=== PATIENT | female | born 1935 | race Caucasian/White ===

== ENCOUNTER 2017-11-03 12:43 | Inpatient (IN) | payer MEDICARE, BC ==
[2017-11-03] MEDS ORDERED: Insulin Regular, Human 100 Units/ML 10 ML Vial IVPUSH ONE ×2 (13:50→14:45)
--- NOTE | 2017-11-03 13:54 | EDM.PDOC ---
ED HPI GENERAL MEDICAL PROBLEM - General Chief Complaint: Diabetic Complaint Stated Complaint: MEDICAL VIA AMBULANCE Time Seen by Provider: 11/03/17 13:35 Source of Information: Reports: Patient, EMS, Family History Limitations: Reports: No Limitations - History of Present Illness INITIAL COMMENTS - FREE TEXT/NARRATIVE: 82-year-old female with insulin-dependent diabetes, on insulin pump developed loose stools yesterday, weakness, nausea, decreased appetite. No fever or chills , denies shortness of breath. This morning she was so weak and ill that she did not fill her pump reservoir and likely has not had any insulin other than baseline insulin. She had emesis at home and felt too weak to walk so the ambulance was called. She seems mildly confused but not feverish, oxygen levels are normal. Glucometer per EMS was 499. She is not hyperventilating or complaining of headache or muscle pain. No peripheral edema. Her chief complaint is profound weakness and nausea. Onset: Gradual (Over the past 2 days) Severity: Moderate Worsens with: Reports: Other (Activity) Associated Symptoms: Reports: Confusion, Loss of Appetite, Malaise, Nausea/ Vomiting, Weakness Denies Pain Score (Numeric/FACES): 0 - Related Data Allergies Allergy/AdvReac Type Severity Reaction Status Date / Time Penicillins Allergy Rash Verified 11/03/17 13:21 Sulfa (Sulfonamide Allergy Joint Pain Verified 11/03/17 13:21 Antibiotics) erythromycin base AdvReac Nausea Verified 11/03/17 13:21 [Erythromycin Base] Home Meds: Home Meds Aspirin [Kate Chewable Aspirin] 81 mg PO DAILY 10/26/13 [History] Calcium Carb & Citrate/Vit D3 [Calcium + D3 ER Tablet] 1 each PO DAILY 10/26/13 [History] Insulin Aspart [NovoLOG] ASDIRECTED 10/26/13 [History] Levothyroxine Sodium 1 tab PO DAILY 10/26/13 [History] Losartan [Cozaar] 1 tab PO BID 10/26/13 [History] levETIRAcetam [Keppra] 500 mg PO BID 10/26/13 [History] Clopidogrel [Plavix] 75 mg PO DAILY #30 tablet 10/30/13 [Rx] Metoprolol Tartrate 25 mg PO BID #60 tablet 10/30/13 [Rx] atorvaSTATin [Lipitor] 10 mg PO BEDTIME #90 tab 10/30/13 [Rx] Past Medical History HEENT History: Reports: Impaired Vision Cardiovascular History: Reports: High Cholesterol 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: Musculoskeletal History: Reports: Arthritis, Fracture Other Musculoskeletal History: finger Neurological History: Reports: Seizure Psychiatric History: Reports: Depression Endocrine/Metabolic History: Reports: Diabetes, Type I, Hypothyroidism - Infectious Disease History Infectious Disease History: Reports: Chicken Pox, Shingles - Past Surgical History GI Surgical History: Reports: Appendectomy, Cholecystectomy, Colonoscopy Female Surgical History: Reports: Tubal Ligation Social & Family History - Tobacco Use Smoking Status *Q: Never Smoker Second Hand Smoke Exposure: No - Caffeine Use Caffeine Use: Reports: Coffee, Tea - Alcohol Use Days Per Week of Alcohol Use: 2 Number of Drinks Per Day: 2 Total Drinks Per Week: 4 - Recreational Drug Use Recreational Drug Use: No ED ROS GENERAL - Review of Systems Review Of Systems: See Below Constitutional: Reports: Malaise, Weakness, Decreased Appetite. Denies: Fever, Chills HEENT: Reports: No Symptoms Respiratory: Denies: Shortness of Breath, Cough Cardiovascular: Denies: Chest Pain GI/Abdominal: Reports: Diarrhea, Nausea, Vomiting. Denies: Abdominal Pain : Reports: No Symptoms Skin: Reports: No Symptoms Neurological: Reports: Confusion, Weakness Psychiatric: Reports: No Symptoms ED EXAM, GENERAL - Physical Exam Exam: See Below Exam Limited By: No Limitations General Appearance: Alert, No Apparent Distress, Other (No distress. Looks very tired) Eye Exam: Bilateral Eye: EOMI Head: Atraumatic Respiratory/Chest: No Respiratory Distress, Lungs Clear Cardiovascular: Regular Rate, Rhythm. No: Tachycardia GI/Abdominal: Normal Bowel Sounds, Soft, Non-Tender Extremities: No: Pedal Edema Neurological: Alert, Oriented Psychiatric: Flat Affect Skin Exam: Warm, Dry Course - Vital Signs Last Recorded V/S: Last Vital Signs Temp 98.8 F 11/04/17 04:00 Pulse 84 11/04/17 06:00 Resp 21 H 11/04/17 06:00 BP 116/47 L 11/04/17 06:00 Pulse Ox 93 L 11/04/17 06:00 - Orders/Labs/Meds Orders: Medication Orders Acetaminophen (Tylenol) 650 mg PO Q4H PRN PRN Reason: Pain (Mild 1-3)/fever Albuterol (Proventil Neb Soln) 2.5 mg NEB Q4H PRN PRN Reason: Shortness Of Breath/wheezing Aspirin (Aspirin) 81 mg PO DAILY HAN Atorvastatin Calcium (Lipitor) 10 mg PO BEDTIME HAN Last Admin: 11/03/17 21:10 Dose: 10 mg Clopidogrel Bisulfate (Plavix) 75 mg PO DAILY HAN Dextrose/Water (Dextrose 50% In Water) 50 ml IVPUSH ONETIME PRN PRN Reason: Blood Glucose Enoxaparin Sodium (Lovenox) 40 mg SUBCUT Q24H HAN Last Admin: 11/03/17 19:59 Dose: 40 mg Insulin Human Regular 100 unit (/ Sodium Chloride) 101 mls @ 5.03 mls/hr IV TITRATE HAN; Protocol Last Titration: 11/04/17 04:04 Dose: 0.03 unit/kg/hr, 2 mls/hr Titration: 11/04/17 02:11 Dose: 0 unit/kg/hr, 0 mls/hr Titration: 11/03/17 22:29 Dose: 0.05 unit/kg/hr, 3 mls/hr Titration: 11/03/17 21:20 Dose: 0.09 unit/kg/hr, 5 mls/hr Titration: 11/03/17 18:00 Dose: 0.14 unit/kg/hr, 7.5 mls/hr Admin: 11/03/17 17:25 Dose: 0.1 unit/kg/hr, 5.03 mls/hr Magnesium Sulfate 2 gm/ Premix 50 mls @ 25 mls/hr IV ONETIME PRN PRN Reason: low magnesium Last Admin: 11/03/17 18:13 Dose: 25 mls/hr Potassium Chloride 20 meq/ (Premix) 100 mls @ 50 mls/hr IV ONETIME PRN PRN Reason: LOW POTASSIUM Last Admin: 11/03/17 22:00 Dose: 50 mls/hr Potassium Chloride 20 meq/ (Premix) 100 mls @ 50 mls/hr IV Q2H PRN PRN Reason: Hypokalemia Potassium Chloride 20 meq/ (Premix) 100 mls @ 50 mls/hr IV Q2H PRN PRN Reason: Hypokalemia Sodium Chloride (Normal Saline) 2,000 mls @ 500 mls/hr IV .CONTINUOUS PRN PRN Reason: Blood Glucose Last Admin: 11/03/17 19:48 Dose: 500 mls/hr Infusion: 11/03/17 19:48 Dose: 500 mls/hr Admin: 11/03/17 17:24 Dose: 500 mls/hr Dextrose/Sodium Chloride (Dextrose 5%-Normal Saline) 1,000 mls @ 150 mls/hr IV ASDIRECTED [facility] Last Admin: 11/04/17 04:54 Dose: 150 mls/hr Infusion: 11/04/17 04:54 Dose: 150 mls/hr Admin: 11/03/17 22:45 Dose: 150 mls/hr Ceftriaxone Sodium 1 gm/ (Sodium Chloride) 50 mls @ 100 mls/hr IV Q24H [facility] Levetiracetam (Keppra) 500 mg PO BID [facility] Last Admin: 11/03/17 21:11 Dose: 500 mg Levothyroxine Sodium (Levothyroxine) 75 mcg PO ACBREAKFAST [facility] Losartan Potassium (Cozaar) 50 mg PO BID [facility] Last Admin: 11/03/17 21:11 Dose: 50 mg Metoprolol Tartrate (Lopressor) 25 mg PO BID [facility] Last Admin: 11/03/17 21:11 Dose: 25 mg Ondansetron HCl (Zofran) 4 mg IV Q4H PRN PRN Reason: Nausea/Vomiting Oxycodone HCl (Oxycodone) 5 mg PO Q4H PRN PRN Reason: Pain (moderate 4-6) Sodium Chloride (Saline Flush) 10 ml FLUSH ASDIRECTED PRN PRN Reason: Keep Vein Open Labs: Laboratory Tests 11/03/17 11/03/17 11/03/17 Range/Units 13:49 13:49 13:50 WBC 18.1 H (4.5-11.0) K/uL RBC 4.29 (3.30-5.50) M/uL Hgb 14.3 (12.0-15.0) g/dL Hct 42.9 (36.0-48.0) % MCV 100 H (80-98) fL MCH 33 H (27-31) pg MCHC 33 (32-36) % Plt Count 399 (150-400) K/uL Neut % (Auto) 97 H (36-66) % Lymph % (Auto) 2 L (24-44) % Mcminn % (Auto) 1 L (2-6) % Eos % (Auto) 0 L (2-4) % Baso % (Auto) 0 (0-1) % Puncture Site Rt radial ABG pH 7.171 L* (7.350-7.450) ABG pCO2 19.5 L* (35.0-42.0) mmHg ABG pO2 118.0 H (75.0-100.0) mmHg ABG HCO3 6.8 L (22.0-26.0) mmol/L ABG Total CO2 6.4 L (21.0-25.0) mmol/L ABG O2 Saturation 97.4 (95.0-98.0) % ABG O2 Content 19.8 (15.0-23.0) %vol ABG Base Excess -20.7 mm/L ABG Hemoglobin 14.7 (12.0-16.0) g/dL ABG Oxyhemoglobin 95.4 % ABG Carboxyhemoglobin 1.5 (0.0-1.6) % ABG Methemoglobin 0.6 % Omar Test Passed O2 Delivery Device Room air Sodium 129 L (140-148) mmol/L Potassium 4.8 (3.6-5.2) mmol/L Chloride 92 L (100-108) mmol/L Carbon Dioxide 7 L D (21-32) mmol/L Anion Gap 34.8 H (5.0-14.0) mmol/L BUN 21 H D (7-18) mg/dL Creatinine 1.2 H D (0.6-1.0) mg/dL Est Cr Clr Drug Dosing 29.45 mL/min Estimated GFR (MDRD) 43 L (>60) Glucose 590 H* (74-106) mg/dL Calcium 9.4 (8.5-10.1) mg/dL Total Bilirubin 1.1 H (0.2-1.0) mg/dL AST 42 H (15-37) U/L ALT 44 (12-78) U/L Alkaline Phosphatase 122 H (46-116) U/L Total Protein 7.0 (6.4-8.2) g/dL Albumin 3.8 (3.4-5.0) g/dL Globulin 3.2 (2.3-3.5) g/dL Albumin/Globulin Ratio 1.2 (1.2-2.2) Lipase 52 L (73-393) U/L Meds: Medications Generic Name Dose Route Start Last Admin Trade Name Freq PRN Reason Stop Dose Admin Acetaminophen 650 mg 11/03/17 16:41 Tylenol PO Q4H PRN Pain (Mild 1-3)/fever Albuterol 2.5 mg 11/03/17 16:41 Proventil Neb Soln NEB Q4H PRN Shortness Of Breath/wheezing Aspirin 81 mg 11/04/17 09:00 Aspirin PO DAILY HAN Atorvastatin Calcium 10 mg 11/03/17 21:00 11/03/17 21:10 Lipitor PO 10 mg BEDTIME HAN Administration Clopidogrel Bisulfate 75 mg 11/04/17 09:00 Plavix PO DAILY HAN Dextrose/Water 50 ml 11/03/17 16:41 Dextrose 50% In Water IVPUSH ONETIME PRN Blood Glucose Enoxaparin Sodium 40 mg 11/03/17 20:00 11/03/17 19:59 Lovenox SUBCUT 40 mg Q24H HAN Administration Insulin Human Regular 100 unit 101 mls @ 5.03 mls/hr 11/03/17 17:15 11/04/17 04:04 / Sodium Chloride IV 0.03 unit/kg/hr TITRATE HAN 2 mls/hr Titration Protocol 0.1 UNIT/KG/HR Magnesium Sulfate 2 gm/ Premix 50 mls @ 25 mls/hr 11/03/17 16:41 11/03/17 18: 13 IV 25 mls/hr ONETIME PRN Administration low magnesium Potassium Chloride 20 meq/ 100 mls @ 50 mls/hr 11/03/17 16:41 11/03/17 22:00 Premix IV 50 mls/hr ONETIME PRN Administration LOW POTASSIUM Potassium Chloride 20 meq/ 100 mls @ 50 mls/hr 11/03/17 16:41 Premix IV Q2H PRN Hypokalemia Potassium Chloride 20 meq/ 100 mls @ 50 mls/hr 11/03/17 16:41 Premix IV Q2H PRN Hypokalemia Sodium Chloride 2,000 mls @ 500 mls/hr 11/03/17 16:41 11/03/17 19:48 Normal Saline IV 500 mls/hr .CONTINUOUS PRN Administration Blood Glucose Dextrose/Sodium Chloride 1,000 mls @ 150 mls/hr 11/03/17 22:30 06/28/18 04:54 Dextrose 5%-Normal Saline IV 150 mls/hr ASDIRECTED HAN Administration Ceftriaxone Sodium 1 gm/ 50 mls @ 100 mls/hr 11/04/17 09:00 Sodium Chloride IV Q24H HAN Levetiracetam 500 mg 11/03/17 21:00 11/03/17 21:11 Keppra PO 500 mg BID HAN Administration Levothyroxine Sodium 75 mcg 11/04/17 07:30 Levothyroxine PO ACBREAKFAST HAN Losartan Potassium 50 mg 11/03/17 21:00 11/03/17 21:11 Cozaar PO 50 mg BID HAN Administration Metoprolol Tartrate 25 mg 11/03/17 21:00 11/03/17 21:11 Lopressor PO 25 mg BID HAN Administration Ondansetron HCl 4 mg 11/03/17 16:41 Zofran IV Q4H PRN Nausea/Vomiting Oxycodone HCl 5 mg 11/03/17 16:41 Oxycodone PO Q4H PRN Pain (moderate 4-6) Sodium Chloride 10 ml 11/03/17 16:41 Saline Flush FLUSH ASDIRECTED PRN Keep Vein Open Discontinued Medications Generic Name Dose Route Start Last Admin Trade Name Freq PRN Reason Stop Dose Admin Sodium Chloride 1,000 mls @ 1,000 mls/hr 11/03/17 14:45 11/03/17 14:51 Normal Saline IV 1,000 mls/hr ASDIRECTED HAN Administration Sodium Phosphate 60 mmole/ 270 mls @ 62.5 mls/hr 11/03/17 16:41 Sodium Chloride IV 11/03/17 22:00 ONETIME PRN Low phophorus Potassium Chloride Confirm 11/03/17 21:53 11/03/17 22:00 Kcl 20 Meq In Water 100 Ml Administered 11/03/17 21:54 Not Given Dose 100 mls @ as directed .ROUTE .STK-MED ONE Insulin Human Regular 10 unit 11/03/17 13:50 11/03/17 14:01 Novolin R IVPUSH 11/03/17 13:51 10 units ONETIME ONE Administration Protocol Insulin Human Regular 10 unit 11/03/17 14:45 11/03/17 14:52 Novolin R IVPUSH 11/03/17 14:46 10 units ONETIME ONE Administration Protocol Insulin Human Regular 0 unit 11/03/17 16:41 11/03/17 17:58 Novolin R IV 11/03/17 16:42 Not Given ONETIME ONE Lidocaine HCl 5 ml 11/03/17 21:28 11/03/17 22:00 Xylocaine-Mpf 1% INJECT 11/03/17 21:29 5 ml ONETIME ONE Administration - Re-Assessments/Exams Free Text/Narrative Re-Assessment/Exam: 11/03/17 13:53 Patient was given 10 units of short-acting insulin IV. CBC, CMP, lipase, and ABGs on room air were obtained. 11/04/17 08:13 ABGs confirmed ketoacidosis with a pH of 7.17, bicarbonate of 7 and a low CO2. Glucose was over 500. Patient was given an additional 10 units of short-acting insulin and 1 L of normal saline was initiated. Dr. Siddiqi was consulted for admission for diabetic ketoacidosis and gastroenteritis. Departure - Departure Time of Disposition: 16:39 Disposition: Admitted As Inpatient 68 Condition: Fair Clinical Impression: Hyperglycemia, Gastroenteritis Diabetic ketoacidosis Qualifiers: Diabetes mellitus type: type 1 Diabetes mellitus complication detail: without coma Qualified Code(s): E10.10 - Type 1 diabetes mellitus with ketoacidosis without coma - Discharge Information
[2017-11-03] MEDS ORDERED: Sodium Chloride 0.9% 1,000 ML IV SCH (14:45)
--- NOTE | 2017-11-03 15:54 | PCM.HP ---
H&P History of Present Illness - General Date of Service: 11/03/17 Admit Problem/Dx: Admission Diagnosis/Problem Admission Diagnosis/Problem Ketoacidosis Source of Information: Patient, Family, Old Records, Provider, RN Notes Reviewed History Limitations: Reports: No Limitations - History of Present Illness Initial Comments - Free Text/Narative: Ms. Jamil is an 82-year-old woman who is admitted through the emergency department with recent history of weakness, nausea vomiting, diarrhea, and diabetic ketoacidosis. She reports that she's not felt well over the past few weeks, becoming more weak and lethargic. Over the past 2-3 days his had a few loose stools and one episode of vomiting. She has a known history of type 1 diabetes mellitus and currently uses an insulins pump, typically blood sugars have been under good control. Over the past few days blood sugars a been elevated and her oral intake has been very minimal. On evaluation in the emergency department she is found to have evidence of ketoacidosis with a significant decrease in her carbon dioxide level associated with a marked elevation in anion gap and significant acidosis with partial respiratory compensation. Denies Pain Score (Numeric/FACES): 0 - Related Data Allergies/Adverse Reactions: Allergies Allergy/AdvReac Type Severity Reaction Status Date / Time Penicillins Allergy Rash Verified 11/03/17 13:21 Sulfa (Sulfonamide Allergy Joint Pain Verified 11/03/17 13:21 Antibiotics) erythromycin base AdvReac Nausea Verified 11/03/17 13:21 [Erythromycin Base] Home Medications: Home Meds Aspirin [Kate Chewable Aspirin] 81 mg PO DAILY 10/26/13 [History] Calcium Carb & Citrate/Vit D3 [Calcium + D3 ER Tablet] 1 each PO DAILY 10/26/13 [History] Insulin Aspart [NovoLOG] ASDIRECTED 10/26/13 [History] Levothyroxine Sodium 1 tab PO DAILY 10/26/13 [History] Losartan [Cozaar] 1 tab PO BID 10/26/13 [History] levETIRAcetam [Keppra] 500 mg PO BID 10/26/13 [History] Clopidogrel [Plavix] 75 mg PO DAILY #30 tablet 10/30/13 [Rx] Metoprolol Tartrate 25 mg PO BID #60 tablet 10/30/13 [Rx] atorvaSTATin [Lipitor] 10 mg PO BEDTIME #90 tab 10/30/13 [Rx] Past Medical History HEENT History: Reports: Impaired Vision Cardiovascular History: Reports: High Cholesterol 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: Musculoskeletal History: Reports: Arthritis, Fracture Other Musculoskeletal History: finger Neurological History: Reports: Seizure Psychiatric History: Reports: Depression Endocrine/Metabolic History: Reports: Diabetes, Type I, Hypothyroidism - Infectious Disease History Infectious Disease History: Reports: Chicken Pox, Shingles - Past Surgical History GI Surgical History: Reports: Appendectomy, Cholecystectomy, Colonoscopy Female Surgical History: Reports: Tubal Ligation Social & Family History - Tobacco Use Smoking Status *Q: Never Smoker Second Hand Smoke Exposure: No - Caffeine Use Caffeine Use: Reports: Coffee, Tea - Alcohol Use Days Per Week of Alcohol Use: 2 Number of Drinks Per Day: 2 Total Drinks Per Week: 4 - Recreational Drug Use Recreational Drug Use: No H&P Review of Systems - Review of Systems: Review Of Systems: See Below General: Reports: Decreased Appetite. Denies: Fever, Chills, Diaphoresis HEENT: Reports: No Symptoms Pulmonary: Reports: No Symptoms Cardiovascular: Reports: No Symptoms Gastrointestinal: Reports: Diarrhea, Decreased Appetite, Nausea, Vomiting. Denies: Black Stool, Bloody Stool, Constipation, Difficulty Swallowing, Distension Genitourinary: Reports: No Symptoms Musculoskeletal: Reports: No Symptoms Skin: Reports: No Symptoms Psychiatric: Reports: No Symptoms Neurological: Reports: No Symptoms Hematologic/Lymphatic: Reports: No Symptoms Immunologic: Reports: No Symptoms Exam - Exam Exam: See Below - Vital Signs Vital Signs: Last Vital Signs Temp 97.9 F 11/03/17 12:58 Pulse 98 11/03/17 12:58 Resp 16 11/03/17 12:58 BP 130/42 L 11/03/17 12:58 Pulse Ox 95 11/03/17 12:58 Weight: 110 lb - Exam Quality Assessment: DVT Prophylaxis General: Alert, Oriented, Cooperative, Moderate Distress HEENT: Conjunctiva Clear, Hearing Intact, Normal Nasal Septum, Posterior Pharynx Clear, Pupils Equal. No: Mucosa Moist & Rawson Neck: Supple, Trachea Midline, +2 Carotid Pulse wo Bruit Lungs: Clear to Auscultation, Normal Respiratory Effort Cardiovascular: Regular Rate, Regular Rhythm, Normal S1, Normal S2. No: Systolic Murmur, Diastolic Murmur GI/Abdominal Exam: Soft, Non-Tender, No Organomegaly, No Distention Back Exam: Normal Inspection, Full Range of Motion Extremities: Non-Tender, No Pedal Edema Skin: Warm, Dry, Intact Neurological: Cranial Nerves Intact, Strength Equal Bilateral, Normal Speech, Normal Tone, Sensation Intact. No: Focal Deficit Neuro Extensive - Mental Status: Alert, Oriented x3, Normal Mood/Affect, Normal Cognition, Memory Intact - Patient Data Lab Results Last 24 hrs: Laboratory Results - last 24 hr 11/03/17 11/03/17 11/03/17 Range/Units 13:49 13:49 13:50 WBC 18.1 H (4.5-11.0) K/uL RBC 4.29 (3.30-5.50) M/uL Hgb 14.3 (12.0-15.0) g/dL Hct 42.9 (36.0-48.0) % MCV 100 H (80-98) fL MCH 33 H (27-31) pg MCHC 33 (32-36) % Plt Count 399 (150-400) K/uL Neut % (Auto) 97 H (36-66) % Lymph % (Auto) 2 L (24-44) % Edmonson % (Auto) 1 L (2-6) % Eos % (Auto) 0 L (2-4) % Baso % (Auto) 0 (0-1) % Puncture Site Rt radial ABG pH 7.171 L* (7.350-7.450) ABG pCO2 19.5 L* (35.0-42.0) mmHg ABG pO2 118.0 H (75.0-100.0) mmHg ABG HCO3 6.8 L (22.0-26.0) mmol/L ABG Total CO2 6.4 L (21.0-25.0) mmol/L ABG O2 Saturation 97.4 (95.0-98.0) % ABG O2 Content 19.8 (15.0-23.0) %vol ABG Base Excess -20.7 mm/L ABG Hemoglobin 14.7 (12.0-16.0) g/dL ABG Oxyhemoglobin 95.4 % ABG Carboxyhemoglobin 1.5 (0.0-1.6) % ABG Methemoglobin 0.6 % Omar Test Passed O2 Delivery Device Room air Sodium 129 L (140-148) mmol/L Potassium 4.8 (3.6-5.2) mmol/L Chloride 92 L (100-108) mmol/L Carbon Dioxide 7 L D (21-32) mmol/L Anion Gap 34.8 H (5.0-14.0) mmol/L BUN 21 H D (7-18) mg/dL Creatinine 1.2 H D (0.6-1.0) mg/dL Est Cr Clr Drug Dosing 29.45 mL/min Estimated GFR (MDRD) 43 L (>60) Glucose 590 H* (74-106) mg/dL Calcium 9.4 (8.5-10.1) mg/dL Total Bilirubin 1.1 H (0.2-1.0) mg/dL AST 42 H (15-37) U/L ALT 44 (12-78) U/L Alkaline Phosphatase 122 H (46-116) U/L Total Protein 7.0 (6.4-8.2) g/dL Albumin 3.8 (3.4-5.0) g/dL Globulin 3.2 (2.3-3.5) g/dL Albumin/Globulin Ratio 1.2 (1.2-2.2) Lipase 52 L (73-393) U/L Result Diagrams: 11/03/17 13:49 11/03/17 13:49 *Q Meaningful Use (ADM) - VTE Risk Assess *Q Each Risk Factor Represents 1 Point: None Total Score 1 Point Risk Factors: 0 Each Risk Factor Represents 2 Points: None Total Score 2 Point Risk Factors: 0 Each Risk Factor Represents 3 Points: Age 75 Years or Greater Total Score 3 Point Risk Factors: 3 Each Risk Factor Represents 5 Points: None Total Score 5 Point Risk Factors: 0 Venous Thromboembolism Risk Factor Score *Q: 3 Problem List Initiated/Reviewed/Updated: Yes Orders Last 24hrs: Active Orders 24 hr Category Date Time Status Patient Status Manage Transfer [TRANSFER] Routine ADT 11/03/17 15:35 Active Sodium Chloride 0.9% [Normal Saline] 1,000 ml Med 11/03/17 14:45 Active IV ASDIRECTED Resuscitation Status Routine Resus Stat 11/03/17 15:37 Ordered Medication Orders Sodium Chloride (Normal Saline) 1,000 mls @ 1,000 mls/hr IV ASDIRECTED HAN Last Admin: 11/03/17 14:51 Dose: 1,000 mls/hr Assessment/Plan Comment:: ASSESSMENT AND PLAN DIABETIC KETOACIDOSIS-likely secondary to gastroenteritis with poor oral intake over the past few days. She has a known history of type 1 diabetes mellitus and is typically managed well with her insulin pump. -Fluid and electrolyte replacement per ketoacidosis protocol -Every hour glucose levels -IV insulin bolus and continuous infusion -Monitor electrolytes and BMP per protocol -Chest x-ray and urinalysis pending -Consider CT scan of abdomen if no other source of ketoacidosis identified HYPERTENSION -Continue outpatient medical regimen SEIZURE DISORDER -Continue outpatient regimen MAINTENANCE ISSUES -DVT prophylaxis; Lovenox 40 mg subcutaneous daily -GI prophylaxis; not indicated -Mckeon catheter; not indicated -Nutrition; consistent carb diet -Nicotine dependence; not required CODE STATUS-FULL CODE ADMISSION STATUS-patient will be admitted to inpatient status, expect at least a 2 night hospital stay for evaluation and management of problems as outlined above. At the time of this admission I do not reasonably expected evaluation and management of this problem will require more than a 96 hour hospital stay. DISPOSITION-anticipate discharge to home after the hospital stay. PRIMARY CARE PROVIDER-[facility] medicine group, [facility]
[2017-11-03] MEDS ORDERED: Albuterol 0.083% 2.5 MG/3 ML Neb Soln NEB PRN (16:41)
[2017-11-03] MEDS ORDERED: Sodium Phosphate 60 MMOLE in Sodium Chloride 0.9% 250 ML IV PRN (16:41)
[2017-11-03] MEDS ORDERED: Potassium Chloride 20 MEQ in Premix Bag 1 BAG IV PRN ×6 (16:41)
[2017-11-03] MEDS ORDERED: oxyCODONE 5 MG Tab PO PRN (16:41)
[2017-11-03] MEDS ORDERED: Insulin Regular, Human 100 Units/ML 10 ML Vial IV ONE (16:41)
[2017-11-03] MEDS ORDERED: Sodium Chloride 0.9% 10 ML Syringe FLUSH PRN (16:41)
[2017-11-03] MEDS ORDERED: Ondansetron 4 MG/2 ML SDV IV PRN (16:41)
[2017-11-03] MEDS ORDERED: Magnesium Sulfate/Water 2 GM in Premix Bag 1 BAG IV PRN (16:41)
[2017-11-03] MEDS ORDERED: Acetaminophen 325 MG Tab PO PRN (16:41)
[2017-11-03] MEDS ORDERED: 50% Dextrose in Water 50 ML Syringe IVPUSH PRN (16:41)
[2017-11-03] MEDS: Sodium Chloride 0.9% 2,000 ML IV PRN ×2 (17:24→19:48)
[2017-11-03] MEDS: Enoxaparin 40 MG/0.4 ML Syringe SUBCUT SCH (19:59)
[2017-11-03] MEDS: atorvaSTATin 10 MG Tab PO SCH (21:10)
[2017-11-03] MEDS: Losartan 50 MG Tab PO SCH (21:11)
[2017-11-03] MEDS: levETIRAcetam 250 MG Tab PO SCH (21:11)
[2017-11-03] MEDS: Metoprolol Tartrate 25 MG Tab PO SCH (21:11)
[2017-11-03] MEDS ORDERED: Potassium Chloride 100 ML ONE (21:53)
[2017-11-03] MEDS: Dextrose 5%-0.9% NaCl 1,000 ML IV SCH (22:45)
[2017-11-04] MEDS: Dextrose 5%-0.9% NaCl 1,000 ML IV SCH ×3 (04:54→18:18)
[2017-11-04] MEDS: levETIRAcetam 250 MG Tab PO SCH ×2 (08:20→21:06)
[2017-11-04] MEDS: Levothyroxine 75 MCG Tab PO SCH (08:20)
[2017-11-04] MEDS: Losartan 50 MG Tab PO SCH ×2 (08:20→21:06)
[2017-11-04] MEDS: Clopidogrel 75 MG Tab PO SCH (08:20)
[2017-11-04] MEDS: Metoprolol Tartrate 25 MG Tab PO SCH ×2 (08:20→21:06)
[2017-11-04] MEDS: Aspirin 81 MG Tab.Chew PO SCH (08:21)
--- NOTE | 2017-11-04 08:40 | CR ---
CHEST: Portable CLINICAL HISTORY:DKA COMPARISON:2013 FINDINGS: Heart size and pulmonary vascularity are normal. There are atherosclerotic changes in the aorta.. Lungs are free of infiltrates. There is hyperaeration.. IMPRESSION: No acute cardiac pulmonary process Hyperaeration
[2017-11-04] MEDS: cefTRIAXone 1 GM in Sodium Chloride 0.9% 50 ML IV SCH (09:23)
--- NOTE | 2017-11-04 09:51 | PCM.PN ---
- General Info Date of Service: 11/04/17 Subjective Update: Ms. Jamil has improved since admission, ketoacidosis much better but has not totally resolved. She is feeling improved and tolerating a consistent carbohydrate diet this morning. Denies any abdominal pain, nausea, vomiting, or diarrhea. Urinalysis showed evidence of UTI, urine cultures pending and she's been started on IV Rocephin. - Review of Systems General: Reports: Weakness. Denies: Fever, Chills Pulmonary: Reports: No Symptoms Cardiovascular: Reports: No Symptoms Gastrointestinal: Reports: No Symptoms - Patient Data Vitals - Most Recent: Last Vital Signs Temp 98.9 F 11/04/17 07:00 Pulse 88 11/04/17 08:20 Resp 19 11/04/17 07:00 BP 127/51 L 11/04/17 08:20 Pulse Ox 95 11/04/17 07:00 Weight - Most Recent: 117 lb 1.047 oz I&O - Last 24 Hours: Intake & Output 11/03/17 11/04/17 11/04/17 22:59 06:59 14:59 Intake Total 3969 Output Total 500 250 Balance -500 3719 Lab Results Last 24 Hours: Laboratory Results - last 24 hr 11/03/17 11/03/17 11/03/17 Range/Units 13:49 13:49 13:50 WBC 18.1 H (4.5-11.0) K/uL RBC 4.29 (3.30-5.50) M/uL Hgb 14.3 (12.0-15.0) g/dL Hct 42.9 (36.0-48.0) % MCV 100 H (80-98) fL MCH 33 H (27-31) pg MCHC 33 (32-36) % Plt Count 399 (150-400) K/uL Neut % (Auto) 97 H (36-66) % Lymph % (Auto) 2 L (24-44) % [place] % (Auto) 1 L (2-6) % Eos % (Auto) 0 L (2-4) % Baso % (Auto) 0 (0-1) % Puncture Site Rt radial ABG pH 7.171 L* (7.350-7.450) ABG pCO2 19.5 L* (35.0-42.0) mmHg ABG pO2 118.0 H (75.0-100.0) mmHg ABG HCO3 6.8 L (22.0-26.0) mmol/L ABG Total CO2 6.4 L (21.0-25.0) mmol/L ABG O2 Saturation 97.4 (95.0-98.0) % ABG O2 Content 19.8 (15.0-23.0) %vol ABG Base Excess -20.7 mm/L ABG Hemoglobin 14.7 (12.0-16.0) g/dL ABG Oxyhemoglobin 95.4 % ABG Carboxyhemoglobin 1.5 (0.0-1.6) % ABG Methemoglobin 0.6 % Omar Test Passed O2 Delivery Device Room air Sodium 129 L (140-148) mmol/L Potassium 4.8 (3.6-5.2) mmol/L Chloride 92 L (100-108) mmol/L Carbon Dioxide 7 L D (21-32) mmol/L Anion Gap 34.8 H (5.0-14.0) mmol/L BUN 21 H D (7-18) mg/dL Creatinine 1.2 H D (0.6-1.0) mg/dL Est Cr Clr Drug Dosing 29.45 mL/min Estimated GFR (MDRD) 43 L (>60) Glucose 590 H* (74-106) mg/dL Calcium 9.4 (8.5-10.1) mg/dL Phosphorus (2.5-4.9) mg/dL Magnesium (1.8-2.4) mg/dL Total Bilirubin 1.1 H (0.2-1.0) mg/dL AST 42 H (15-37) U/L ALT 44 (12-78) U/L Alkaline Phosphatase 122 H (46-116) U/L Total Protein 7.0 (6.4-8.2) g/dL Albumin 3.8 (3.4-5.0) g/dL Globulin 3.2 (2.3-3.5) g/dL Albumin/Globulin Ratio 1.2 (1.2-2.2) Lipase 52 L (73-393) U/L TSH, Ultra Sensitive (0.358-3.740) uIU/mL Urine Color Urine Appearance Urine pH (4.5-8.0) Ur Specific [place] (1.008-1.030) Urine Protein (NEGATIVE) mg/dL Urine Glucose (UA) (NEGATIVE) mg/dL Urine Ketones (NEGATIVE) mg/dL Urine Occult Blood (NEGATIVE) Urine Nitrite (NEGATIVE) Urine Bilirubin (NEGATIVE) Urine Urobilinogen (NORMAL) mg/dL Ur Leukocyte Esterase (NEGATIVE) Urine RBC (0-5) Urine WBC (0-5) Ur Epithelial Cells Amorphous Sediment Urine Bacteria Urine Mucus 11/03/17 11/03/17 11/03/17 Range/Units 17:00 18:41 20:41 WBC (4.5-11.0) K/uL RBC (3.30-5.50) M/uL Hgb (12.0-15.0) g/dL Hct (36.0-48.0) % MCV (80-98) fL MCH (27-31) pg MCHC (32-36) % Plt Count (150-400) K/uL Neut % (Auto) (36-66) % Lymph % (Auto) (24-44) % [place] % (Auto) (2-6) % Eos % (Auto) (2-4) % Baso % (Auto) (0-1) % Puncture Site ABG pH (7.350-7.450) ABG pCO2 (35.0-42.0) mmHg ABG pO2 (75.0-100.0) mmHg ABG HCO3 (22.0-26.0) mmol/L ABG Total CO2 (21.0-25.0) mmol/L ABG O2 Saturation (95.0-98.0) % ABG O2 Content (15.0-23.0) %vol ABG Base Excess mm/L ABG Hemoglobin (12.0-16.0) g/dL ABG Oxyhemoglobin % ABG Carboxyhemoglobin (0.0-1.6) % ABG Methemoglobin % Omar Test O2 Delivery Device Sodium 132 L 132 L (140-148) mmol/L Potassium 4.0 3.7 3.5 L (3.6-5.2) mmol/L Chloride 96 L 101 (100-108) mmol/L Carbon Dioxide 14 L 19 L (21-32) mmol/L Anion Gap 26.0 H 15.5 H (5.0-14.0) mmol/L BUN 19 H 15 (7-18) mg/dL Creatinine 1.3 H 0.9 (0.6-1.0) mg/dL Est Cr Clr Drug Dosing 27.06 39.09 mL/min Estimated GFR (MDRD) 39 L > 60 (>60) Glucose 311 H 204 H (74-106) mg/dL Calcium 8.6 8.1 L (8.5-10.1) mg/dL Phosphorus 4.3 (2.5-4.9) mg/dL Magnesium 1.6 L (1.8-2.4) mg/dL Total Bilirubin (0.2-1.0) mg/dL AST (15-37) U/L ALT (12-78) U/L Alkaline Phosphatase (46-116) U/L Total Protein (6.4-8.2) g/dL Albumin (3.4-5.0) g/dL Globulin (2.3-3.5) g/dL Albumin/Globulin Ratio (1.2-2.2) Lipase (73-393) U/L TSH, Ultra Sensitive (0.358-3.740) uIU/mL Urine Color Urine Appearance Urine pH (4.5-8.0) Ur Specific [place] (1.008-1.030) Urine Protein (NEGATIVE) mg/dL Urine Glucose (UA) (NEGATIVE) mg/dL Urine Ketones (NEGATIVE) mg/dL Urine Occult Blood (NEGATIVE) Urine Nitrite (NEGATIVE) Urine Bilirubin (NEGATIVE) Urine Urobilinogen (NORMAL) mg/dL Ur Leukocyte Esterase (NEGATIVE) Urine RBC (0-5) Urine WBC (0-5) Ur Epithelial Cells Amorphous Sediment Urine Bacteria Urine Mucus 11/03/17 11/03/17 11/04/17 Range/Units 21:02 22:41 00:41 WBC (4.5-11.0) K/uL RBC (3.30-5.50) M/uL Hgb (12.0-15.0) g/dL Hct (36.0-48.0) % MCV (80-98) fL MCH (27-31) pg MCHC (32-36) % Plt Count (150-400) K/uL Neut % (Auto) (36-66) % Lymph % (Auto) (24-44) % [place] % (Auto) (2-6) % Eos % (Auto) (2-4) % Baso % (Auto) (0-1) % Puncture Site ABG pH (7.350-7.450) ABG pCO2 (35.0-42.0) mmHg ABG pO2 (75.0-100.0) mmHg ABG HCO3 (22.0-26.0) mmol/L ABG Total CO2 (21.0-25.0) mmol/L ABG O2 Saturation (95.0-98.0) % ABG O2 Content (15.0-23.0) %vol ABG Base Excess mm/L ABG Hemoglobin (12.0-16.0) g/dL ABG Oxyhemoglobin % ABG Carboxyhemoglobin (0.0-1.6) % ABG Methemoglobin % Omar Test O2 Delivery Device Sodium 133 L (140-148) mmol/L Potassium 3.6 4.1 (3.6-5.2) mmol/L Chloride 104 (100-108) mmol/L Carbon Dioxide 22 (21-32) mmol/L Anion Gap 11.1 (5.0-14.0) mmol/L BUN 13 (7-18) mg/dL Creatinine 0.8 (0.6-1.0) mg/dL Est Cr Clr Drug Dosing 43.97 mL/min Estimated GFR (MDRD) > 60 (>60) Glucose 94 (74-106) mg/dL Calcium 8.2 L (8.5-10.1) mg/dL Phosphorus 1.8 L (2.5-4.9) mg/dL Magnesium 2.2 D (1.8-2.4) mg/dL Total Bilirubin (0.2-1.0) mg/dL AST (15-37) U/L ALT (12-78) U/L Alkaline Phosphatase (46-116) U/L Total Protein (6.4-8.2) g/dL Albumin (3.4-5.0) g/dL Globulin (2.3-3.5) g/dL Albumin/Globulin Ratio (1.2-2.2) Lipase (73-393) U/L TSH, Ultra Sensitive (0.358-3.740) uIU/mL Urine Color Yellow Urine Appearance Cloudy Urine pH 5.0 (4.5-8.0) Ur Specific [place] 1.015 (1.008-1.030) Urine Protein Negative (NEGATIVE) mg/dL Urine Glucose (UA) 250 H (NEGATIVE) mg/dL Urine Ketones 50 H (NEGATIVE) mg/dL Urine Occult Blood Moderate (NEGATIVE) Urine Nitrite Negative (NEGATIVE) Urine Bilirubin Negative (NEGATIVE) Urine Urobilinogen Normal (NORMAL) mg/dL Ur Leukocyte Esterase Large (NEGATIVE) Urine RBC 20-30 H (0-5) Urine WBC Packed H (0-5) Ur Epithelial Cells Few Amorphous Sediment Few Urine Bacteria Moderate Urine Mucus Few 11/04/17 11/04/17 11/04/17 Range/Units 02:41 04:50 04:50 WBC 13.6 H (4.5-11.0) K/uL RBC 3.62 (3.30-5.50) M/uL Hgb 12.2 D (12.0-15.0) g/dL Hct 35.7 L (36.0-48.0) % MCV 99 H (80-98) fL MCH 34 H (27-31) pg MCHC 34 (32-36) % Plt Count 289 (150-400) K/uL Neut % (Auto) 79 H (36-66) % Lymph % (Auto) 13 L (24-44) % [place] % (Auto) 8 H (2-6) % Eos % (Auto) 0 L (2-4) % Baso % (Auto) 0 (0-1) % Puncture Site ABG pH (7.350-7.450) ABG pCO2 (35.0-42.0) mmHg ABG pO2 (75.0-100.0) mmHg ABG HCO3 (22.0-26.0) mmol/L ABG Total CO2 (21.0-25.0) mmol/L ABG O2 Saturation (95.0-98.0) % ABG O2 Content (15.0-23.0) %vol ABG Base Excess mm/L ABG Hemoglobin (12.0-16.0) g/dL ABG Oxyhemoglobin % ABG Carboxyhemoglobin (0.0-1.6) % ABG Methemoglobin % Omar Test O2 Delivery Device Sodium 133 L (140-148) mmol/L Potassium 4.1 3.8 (3.6-5.2) mmol/L Chloride 103 (100-108) mmol/L Carbon Dioxide 18 L (21-32) mmol/L Anion Gap 15.8 H (5.0-14.0) mmol/L BUN 12 (7-18) mg/dL Creatinine 0.7 (0.6-1.0) mg/dL Est Cr Clr Drug Dosing 50.26 mL/min Estimated GFR (MDRD) > 60 (>60) Glucose 154 H (74-106) mg/dL Calcium 8.3 L (8.5-10.1) mg/dL Phosphorus (2.5-4.9) mg/dL Magnesium (1.8-2.4) mg/dL Total Bilirubin 0.6 (0.2-1.0) mg/dL AST 38 H (15-37) U/L ALT 37 (12-78) U/L Alkaline Phosphatase 85 (46-116) U/L Total Protein 5.5 L (6.4-8.2) g/dL Albumin 2.8 L (3.4-5.0) g/dL Globulin 2.7 (2.3-3.5) g/dL Albumin/Globulin Ratio 1.0 L (1.2-2.2) Lipase (73-393) U/L TSH, Ultra Sensitive 0.670 (0.358-3.740) uIU/mL Urine Color Urine Appearance Urine pH (4.5-8.0) Ur Specific [place] (1.008-1.030) Urine Protein (NEGATIVE) mg/dL Urine Glucose (UA) (NEGATIVE) mg/dL Urine Ketones (NEGATIVE) mg/dL Urine Occult Blood (NEGATIVE) Urine Nitrite (NEGATIVE) Urine Bilirubin (NEGATIVE) Urine Urobilinogen (NORMAL) mg/dL Ur Leukocyte Esterase (NEGATIVE) Urine RBC (0-5) Urine WBC (0-5) Ur Epithelial Cells Amorphous Sediment Urine Bacteria Urine Mucus 11/04/17 11/04/17 11/04/17 Range/Units 04:50 07:23 09:00 WBC (4.5-11.0) K/uL RBC (3.30-5.50) M/uL Hgb (12.0-15.0) g/dL Hct (36.0-48.0) % MCV (80-98) fL MCH (27-31) pg MCHC (32-36) % Plt Count (150-400) K/uL Neut % (Auto) (36-66) % Lymph % (Auto) (24-44) % [place] % (Auto) (2-6) % Eos % (Auto) (2-4) % Baso % (Auto) (0-1) % Puncture Site ABG pH (7.350-7.450) ABG pCO2 (35.0-42.0) mmHg ABG pO2 (75.0-100.0) mmHg ABG HCO3 (22.0-26.0) mmol/L ABG Total CO2 (21.0-25.0) mmol/L ABG O2 Saturation (95.0-98.0) % ABG O2 Content (15.0-23.0) %vol ABG Base Excess mm/L ABG Hemoglobin (12.0-16.0) g/dL ABG Oxyhemoglobin % ABG Carboxyhemoglobin (0.0-1.6) % ABG Methemoglobin % Omar Test O2 Delivery Device Sodium 132 L (140-148) mmol/L Potassium 3.9 3.5 L (3.6-5.2) mmol/L Chloride 103 (100-108) mmol/L Carbon Dioxide 21 (21-32) mmol/L Anion Gap 11.5 (5.0-14.0) mmol/L BUN 10 (7-18) mg/dL Creatinine 0.7 (0.6-1.0) mg/dL Est Cr Clr Drug Dosing 50.26 mL/min Estimated GFR (MDRD) > 60 (>60) Glucose 245 H (74-106) mg/dL Calcium 7.7 L (8.5-10.1) mg/dL Phosphorus 2.5 (2.5-4.9) mg/dL Magnesium 2.2 (1.8-2.4) mg/dL Total Bilirubin (0.2-1.0) mg/dL AST (15-37) U/L ALT (12-78) U/L Alkaline Phosphatase (46-116) U/L Total Protein (6.4-8.2) g/dL Albumin (3.4-5.0) g/dL Globulin (2.3-3.5) g/dL Albumin/Globulin Ratio (1.2-2.2) Lipase (73-393) U/L TSH, Ultra Sensitive (0.358-3.740) uIU/mL Urine Color Urine Appearance Urine pH (4.5-8.0) Ur Specific [place] (1.008-1.030) Urine Protein (NEGATIVE) mg/dL Urine Glucose (UA) (NEGATIVE) mg/dL Urine Ketones (NEGATIVE) mg/dL Urine Occult Blood (NEGATIVE) Urine Nitrite (NEGATIVE) Urine Bilirubin (NEGATIVE) Urine Urobilinogen (NORMAL) mg/dL Ur Leukocyte Esterase (NEGATIVE) Urine RBC (0-5) Urine WBC (0-5) Ur Epithelial Cells Amorphous Sediment Urine Bacteria Urine Mucus Med Orders - Current: Current Medications Acetaminophen (Tylenol) 650 mg PO Q4H PRN PRN Reason: Pain (Mild 1-3)/fever Albuterol (Proventil Neb Soln) 2.5 mg NEB Q4H PRN PRN Reason: Shortness Of Breath/wheezing Aspirin (Aspirin) 81 mg PO DAILY [facility] Last Admin: 11/04/17 08:21 Dose: 81 mg Atorvastatin Calcium (Lipitor) 10 mg PO BEDTIME HAN Last Admin: 11/03/17 21:10 Dose: 10 mg Clopidogrel Bisulfate (Plavix) 75 mg PO DAILY [facility] Last Admin: 11/04/17 08:20 Dose: 75 mg Dextrose/Water (Dextrose 50% In Water) 50 ml IVPUSH ONETIME PRN PRN Reason: Blood Glucose Enoxaparin Sodium (Lovenox) 40 mg SUBCUT Q24H [facility] Last Admin: 11/03/17 19:59 Dose: 40 mg Insulin Human Regular 100 unit (/ Sodium Chloride) 101 mls @ 5.03 mls/hr IV TITRATE HAN; Protocol Last Titration: 11/04/17 04:04 Dose: 0.03 unit/kg/hr, 2 mls/hr Magnesium Sulfate 2 gm/ Premix 50 mls @ 25 mls/hr IV ONETIME PRN PRN Reason: low magnesium Last Admin: 11/03/17 18:13 Dose: 25 mls/hr Potassium Chloride 20 meq/ (Premix) 100 mls @ 50 mls/hr IV ONETIME PRN PRN Reason: LOW POTASSIUM Last Admin: 11/03/17 22:00 Dose: 50 mls/hr Potassium Chloride 20 meq/ (Premix) 100 mls @ 50 mls/hr IV Q2H PRN PRN Reason: Hypokalemia Potassium Chloride 20 meq/ (Premix) 100 mls @ 50 mls/hr IV Q2H PRN PRN Reason: Hypokalemia Sodium Chloride (Normal Saline) 2,000 mls @ 500 mls/hr IV .CONTINUOUS PRN PRN Reason: Blood Glucose Last Admin: 11/03/17 19:48 Dose: 500 mls/hr Dextrose/Sodium Chloride (Dextrose 5%-Normal Saline) 1,000 mls @ 150 mls/hr IV ASDIRECTED [facility] Last Admin: 11/04/17 04:54 Dose: 150 mls/hr Ceftriaxone Sodium 1 gm/ (Sodium Chloride) 50 mls @ 100 mls/hr IV Q24H [facility] Last Admin: 11/04/17 09:23 Dose: 100 mls/hr Levetiracetam (Keppra) 500 mg PO BID [facility] Last Admin: 11/04/17 08:20 Dose: 500 mg Levothyroxine Sodium (Levothyroxine) 75 mcg PO ACBREAKFAST [facility] Last Admin: 11/04/17 08:20 Dose: 75 mcg Losartan Potassium (Cozaar) 50 mg PO BID [facility] Last Admin: 11/04/17 08:20 Dose: 50 mg Metoprolol Tartrate (Lopressor) 25 mg PO BID [facility] Last Admin: 11/04/17 08:20 Dose: 25 mg Ondansetron HCl (Zofran) 4 mg IV Q4H PRN PRN Reason: Nausea/Vomiting Oxycodone HCl (Oxycodone) 5 mg PO Q4H PRN PRN Reason: Pain (moderate 4-6) Sodium Chloride (Saline Flush) 10 ml FLUSH ASDIRECTED PRN PRN Reason: Keep Vein Open Discontinued Medications Sodium Chloride (Normal Saline) 1,000 mls @ 1,000 mls/hr IV ASDIRECTED [facility] Last Admin: 11/03/17 14:51 Dose: 1,000 mls/hr Sodium Phosphate 60 mmole/ (Sodium Chloride) 270 mls @ 62.5 mls/hr IV ONETIME PRN PRN Reason: Low phophorus Stop: 11/03/17 22:00 Potassium Chloride (Kcl 20 Meq In Water 100 Ml) Confirm Administered Dose 100 mls @ as directed .ROUTE .STK-MED ONE Stop: 11/03/17 21:54 Last Admin: 11/03/17 22:00 Dose: Not Given Insulin Human Regular (Novolin R) 10 unit IVPUSH ONETIME ONE; Protocol Stop: 11/03/17 13:51 Last Admin: 11/03/17 14:01 Dose: 10 units Insulin Human Regular (Novolin R) 10 unit IVPUSH ONETIME ONE; Protocol Stop: 11/03/17 14:46 Last Admin: 11/03/17 14:52 Dose: 10 units Insulin Human Regular (Novolin R) 0 unit IV ONETIME ONE Stop: 11/03/17 16:42 Last Admin: 11/03/17 17:58 Dose: Not Given Lidocaine HCl (Xylocaine-Mpf 1%) 5 ml INJECT ONETIME ONE Stop: 11/03/17 21:29 Last Admin: 11/03/17 22:00 Dose: 5 ml - Exam General: Alert, Oriented, Cooperative, No Acute Distress Lungs: Clear to Auscultation, Normal Respiratory Effort Cardiovascular: Regular Rate, Regular Rhythm, No Murmurs GI/Abdominal Exam: Soft, Non-Tender, No Organomegaly, No Distention Back Exam: Normal Inspection, Full Range of Motion Extremities: Non-Tender, No Pedal Edema Skin: Warm, Dry - Problem List Review Problem List Initiated/Reviewed/Updated: Yes - My Orders Last 24 Hours: My Active Orders 11/03/17 15:37 Resuscitation Status Routine 11/03/17 16:41 Patient Status [ADT] Routine Ambulate [RC] QID Blood Glucose Check, Bedside [RC] Q1H Cardiac Monitoring [RC] Q6H Diabetes Education [RC] Click to Edit Height and Weight [RC] DAILY Intake and Output [RC] QSHIFT Notify Provider Laboratory Res [RC] ASDIRECTED Notify Provider Laboratory Res [RC] ASDIRECTED Notify Provider Laboratory Res [RC] ASDIRECTED Notify Provider Vital Signs [RC] ASDIRECTED Oxygen Therapy [RC] PRN Peripheral IV Care [RC] . DIRECTED RT Aerosol Therapy [RC] ASDIRECTED Up With Assistance [RC] ASDIRECTED Up to Chair [RC] QID VTE/DVT Education [RC] Per Unit Routine Vital Signs [RC] Q1H Acetaminophen [Tylenol] 650 mg PO Q4H PRN Albuterol [Proventil Neb Soln] 2.5 mg NEB Q4H PRN Dextrose 50% in Water 50 ml IVPUSH ONETIME PRN Magnesium Sulfate/Water [Magnesium Sulfate 2 GM in Water 50 ML] 2 gm Premix Bag 1 bag IV ONETIME Ondansetron [Zofran] 4 mg IV Q4H PRN Potassium Chloride [KCL 20 MEQ in Water 100 ML] 20 meq Premix Bag 1 bag IV ONETIME Potassium Chloride [KCL 20 MEQ in Water 100 ML] 20 meq Premix Bag 1 bag IV Q2H Potassium Chloride [KCL 20 MEQ in Water 100 ML] 20 meq Premix Bag 1 bag IV Q2H Sodium Chloride 0.9% [Normal Saline] 2,000 ml IV .CONTINUOUS Sodium Chloride 0.9% [Saline Flush] 10 ml FLUSH ASDIRECTED PRN oxyCODONE 5 mg PO Q4H PRN Medication Continuation Instructions [OM.PC] ASDIRECTED Medication Discontinuation Instructions [OM.PC] ASDIRECTED Peripheral IV Insertion Adult [OM.PC] Routine 11/03/17 17:15 Insulin Regular, Human [NovoLIN R] 100 unit Sodium Chloride 0.9% [Normal Saline] 100 ml IV TITRATE 11/03/17 20:00 Enoxaparin [Lovenox] 40 mg SUBCUT Q24H 11/03/17 21:00 Losartan [Cozaar] 50 mg PO BID Metoprolol Tartrate [Lopressor] 25 mg PO BID atorvaSTATin [Lipitor] 10 mg PO BEDTIME levETIRAcetam [Keppra] 500 mg PO BID 11/03/17 21:02 UA W/MICROSCOPIC [URIN] Routine 11/03/17 22:30 Dextrose 5%-0.9% NaCl [Dextrose 5%-Normal Saline] 1,000 ml IV ASDIRECTED 11/03/17 Lunch Consistent Carbohydrate Diet [DIET] 11/04/17 07:30 Levothyroxine 75 mcg PO ACBREAKFAST 11/04/17 08:27 CULTURE URINE [RM] Stat 11/04/17 08:32 Consult to Switch Engineer [Consult to Diabetic Nurse Specialist] [CONS] Routine 11/04/17 09:00 Aspirin 81 mg PO DAILY Clopidogrel [Plavix] 75 mg PO DAILY cefTRIAXone [Rocephin] 1 gm Sodium Chloride 0.9% [Normal Saline] 50 ml IV Q24H 11/04/17 10:41 MAGNESIUM [CHEM] Q6H PHOSPHORUS [CHEM] Q6H POTASSIUM,K [CHEM] Q2H 11/04/17 12:41 BASIC METABOLIC PANEL,BMP [CHEM] Q4H 11/04/17 14:41 POTASSIUM,K [CHEM] Q2H 11/05/17 05:00 BASIC METABOLIC PANEL,BMP [CHEM] Timed CBC WITH AUTO DIFF [HEME] Timed MAGNESIUM [CHEM] Timed - Plan Plan:: ASSESSMENT AND PLAN DIABETIC KETOACIDOSIS-likely secondary to urinary tract infection with poor oral intake over the past few days. She has a known history of type 1 diabetes mellitus and is typically managed well with her insulin pump. -Fluid and electrolyte replacement per ketoacidosis protocol -Every hour glucose levels -IV insulin bolus and continuous infusion -Monitor electrolytes and BMP per protocol URINARY TRACT INFECTION -Urine culture pending -Rocephin 1 g IV every 24 hours HYPERTENSION -Continue outpatient medical regimen SEIZURE DISORDER -Continue outpatient regimen MAINTENANCE ISSUES -DVT prophylaxis; Lovenox 40 mg subcutaneous daily -GI prophylaxis; not indicated -Mckeon catheter; not indicated -Nutrition; consistent carb diet -Nicotine dependence; not required CODE STATUS-FULL CODE ADMISSION STATUS-patient will be admitted to inpatient status, expect at least a 2 night hospital stay for evaluation and management of problems as outlined above. At the time of this admission I do not reasonably expected evaluation and management of this problem will require more than a 96 hour hospital stay. DISPOSITION-anticipate discharge to home after the hospital stay. PRIMARY CARE PROVIDER-internal medicine group, [facility]
[2017-11-04] MEDS ORDERED: 50% Dextrose in Water 50 ML Syringe IV PRN (14:10)
[2017-11-04] MEDS ORDERED: Glucose Gel 15 GM in 37.5 GM Tube PO PRN (14:10)
[2017-11-04] MEDS ORDERED: Glucagon,Human Recombinant 1 MG Vial IM PRN (16:03)
[2017-11-04] MEDS ORDERED: Insulin Detemir 100 Units/ML 3 ML Pen SUBCUT ONE (16:15)
[2017-11-04] MEDS: Insulin Aspart 100 Units/ML 3 ML Pen SUBCUT PRN ×2 (18:12→21:07)
[2017-11-04] MEDS: Enoxaparin 40 MG/0.4 ML Syringe SUBCUT SCH (21:05)
[2017-11-04] MEDS: atorvaSTATin 10 MG Tab PO SCH (21:06)
[2017-11-05] MEDS: Insulin Aspart 100 Units/ML 3 ML Pen SUBCUT PRN ×2 (08:00→12:08)
[2017-11-05] MEDS: Levothyroxine 75 MCG Tab PO SCH (08:10)
[2017-11-05] MEDS ORDERED: Potassium Chloride 20 MEQ Tab.ER PO ONE (08:30)
[2017-11-05] MEDS: Magnesium Oxide 400 MG Tab PO SCH ×2 (08:45→20:30)
[2017-11-05] MEDS: Losartan 50 MG Tab PO SCH ×2 (08:55→20:29)
[2017-11-05] MEDS ORDERED: Magnesium Sulfate/Water 2 GM in Premix Bag 1 BAG IV ONE (09:00)
[2017-11-05] MEDS: levETIRAcetam 250 MG Tab PO SCH ×2 (09:00→20:29)
[2017-11-05] MEDS: Metoprolol Tartrate 25 MG Tab PO SCH ×2 (09:01→20:30)
[2017-11-05] MEDS: Clopidogrel 75 MG Tab PO SCH (09:01)
[2017-11-05] MEDS: Aspirin 81 MG Tab.Chew PO SCH (09:01)
--- NOTE | 2017-11-05 10:37 | PCM.PN ---
- General Info Date of Service: 11/05/17 Subjective Update: Ms. Jamil has remained stable since yesterday, diabetic ketoacidosis has cleared completely. She has had difficulty with confusion and mild agitation, reports that she has been having short-term memory problems at home. Because of confusion, she was unable to adequately use her insulins pump yesterday so she received a dose of long-acting insulins and has been on sliding scale NovoLog. Today she seems to be more clear and less confused. - Review of Systems General: Denies: Fever, Weakness, Chills Pulmonary: Reports: No Symptoms Cardiovascular: Reports: No Symptoms Gastrointestinal: Reports: No Symptoms Psychiatric: Reports: Confusion - Patient Data Vitals - Most Recent: Last Vital Signs Temp 98.1 F 11/05/17 02:00 Pulse 74 11/05/17 09:01 Resp 20 11/05/17 04:00 BP 171/78 H 11/05/17 09:01 Pulse Ox 89 L 11/05/17 04:00 Weight - Most Recent: 121 lb 14.65 oz I&O - Last 24 Hours: Intake & Output 11/04/17 11/05/17 11/05/17 22:59 06:59 14:59 Intake Total 1440 240 Output Total 1000 1650 Balance 440 -1410 Lab Results Last 24 Hours: Laboratory Results - last 24 hr 11/04/17 11/04/17 11/04/17 Range/Units 10:46 12:41 14:41 WBC (4.5-11.0) K/uL RBC (3.30-5.50) M/uL Hgb (12.0-15.0) g/dL Hct (36.0-48.0) % MCV (80-98) fL MCH (27-31) pg MCHC (32-36) % Plt Count (150-400) K/uL Neut % (Auto) (36-66) % Lymph % (Auto) (24-44) % [place] % (Auto) (2-6) % Eos % (Auto) (2-4) % Baso % (Auto) (0-1) % Sodium 134 L (140-148) mmol/L Potassium 3.6 3.7 3.6 (3.6-5.2) mmol/L Chloride 105 (100-108) mmol/L Carbon Dioxide 19 L (21-32) mmol/L Anion Gap 13.7 (5.0-14.0) mmol/L BUN 8 (7-18) mg/dL Creatinine 0.7 (0.6-1.0) mg/dL Est Cr Clr Drug Dosing 50.26 mL/min Estimated GFR (MDRD) > 60 (>60) Glucose 100 (74-106) mg/dL Calcium 8.0 L (8.5-10.1) mg/dL Phosphorus 1.7 L (2.5-4.9) mg/dL Magnesium 1.8 (1.8-2.4) mg/dL 11/05/17 11/05/17 Range/Units 05:25 05:25 WBC 7.9 (4.5-11.0) K/uL RBC 3.72 (3.30-5.50) M/uL Hgb 12.6 (12.0-15.0) g/dL Hct 36.3 (36.0-48.0) % MCV 98 (80-98) fL MCH 34 H (27-31) pg MCHC 35 (32-36) % Plt Count 254 (150-400) K/uL Neut % (Auto) 72 H (36-66) % Lymph % (Auto) 18 L (24-44) % [place] % (Auto) 9 H (2-6) % Eos % (Auto) 0 L (2-4) % Baso % (Auto) 0 (0-1) % Sodium 134 L (140-148) mmol/L Potassium 3.2 L (3.6-5.2) mmol/L Chloride 103 (100-108) mmol/L Carbon Dioxide 21 (21-32) mmol/L Anion Gap 13.2 (5.0-14.0) mmol/L BUN 3 L D (7-18) mg/dL Creatinine 0.6 (0.6-1.0) mg/dL Est Cr Clr Drug Dosing 58.63 mL/min Estimated GFR (MDRD) > 60 (>60) Glucose 172 H (74-106) mg/dL Calcium 7.9 L (8.5-10.1) mg/dL Phosphorus (2.5-4.9) mg/dL Magnesium 1.5 L (1.8-2.4) mg/dL [place] Results Last 24 Hours: Microbiology 11/04/17 08:27 Urine Culture - Preliminary Urine, Clean Catch MIXED ERIK DAY 1 Med Orders - Current: Current Medications Acetaminophen (Tylenol) 650 mg PO Q4H PRN PRN Reason: Pain (Mild 1-3)/fever Albuterol (Proventil Neb Soln) 2.5 mg NEB Q4H PRN PRN Reason: Shortness Of Breath/wheezing Aspirin (Aspirin) 81 mg PO DAILY [facility] Last Admin: 11/05/17 09:01 Dose: 81 mg Atorvastatin Calcium (Lipitor) 10 mg PO BEDTIME [facility] Last Admin: 11/04/17 21:06 Dose: 10 mg Clopidogrel Bisulfate (Plavix) 75 mg PO DAILY [facility] Last Admin: 11/05/17 09:01 Dose: 75 mg Dextrose (Glutose 15) 15 gm PO ASDIRECTED PRN PRN Reason: Hypoglycemia Dextrose/Water (Dextrose 50% In Water) 50 ml IVPUSH ONETIME PRN PRN Reason: Blood Glucose Enoxaparin Sodium (Lovenox) 40 mg SUBCUT Q24H [facility] Last Admin: 11/04/17 21:05 Dose: 40 mg Glucagon (Glucagen) 1 mg IM ASDIRECTED PRN PRN Reason: HYPOGLYCEMIA Ceftriaxone Sodium 1 gm/ (Sodium Chloride) 50 mls @ 100 mls/hr IV Q24H [facility] Last Admin: 11/04/17 09:23 Dose: 100 mls/hr Magnesium Sulfate 2 gm/ Premix 50 mls @ 25 mls/hr IV ONETIME ONE Stop: 11/05/17 10:59 Last Admin: 11/05/17 09:03 Dose: 25 mls/hr Insulin Aspart (Novolog) 0 unit SUBCUT QIDACANDBED PRN; Protocol PRN Reason: LOW CORRECTIONAL DOSE Last Admin: 11/05/17 08:52 Dose: 2 units Levetiracetam (Keppra) 500 mg PO BID [facility] Last Admin: 11/05/17 09:00 Dose: 500 mg Levothyroxine Sodium (Levothyroxine) 75 mcg PO ACBREAKFAST [facility] Last Admin: 11/05/17 08:10 Dose: 75 mcg Losartan Potassium (Cozaar) 50 mg PO BID [facility] Last Admin: 11/05/17 08:55 Dose: 50 mg Magnesium Oxide (Magnesium Oxide) 400 mg PO BID [facility] Last Admin: 11/05/17 08:45 Dose: 400 mg Metoprolol Tartrate (Lopressor) 25 mg PO BID [facility] Last Admin: 11/05/17 09:01 Dose: 25 mg Ondansetron HCl (Zofran) 4 mg IV Q4H PRN PRN Reason: Nausea/Vomiting Oxycodone HCl (Oxycodone) 5 mg PO Q4H PRN PRN Reason: Pain (moderate 4-6) Sodium Chloride (Saline Flush) 10 ml FLUSH ASDIRECTED PRN PRN Reason: Keep Vein Open Discontinued Medications Sodium Chloride (Normal Saline) 1,000 mls @ 1,000 mls/hr IV ASDIRECTED [facility] Last Admin: 11/03/17 14:51 Dose: 1,000 mls/hr Insulin Human Regular 100 unit (/ Sodium Chloride) 101 mls @ 5.03 mls/hr IV TITRATE [facility]; Protocol Last Titration: 11/04/17 09:49 Dose: 0.07 unit/kg/hr, 4 mls/hr Magnesium Sulfate 2 gm/ Premix 50 mls @ 25 mls/hr IV ONETIME PRN PRN Reason: low magnesium Last Admin: 11/03/17 18:13 Dose: 25 mls/hr Potassium Chloride 20 meq/ (Premix) 100 mls @ 50 mls/hr IV ONETIME PRN PRN Reason: LOW POTASSIUM Last Admin: 11/03/17 22:00 Dose: 50 mls/hr Potassium Chloride 20 meq/ (Premix) 100 mls @ 50 mls/hr IV Q2H PRN PRN Reason: Hypokalemia Potassium Chloride 20 meq/ (Premix) 100 mls @ 50 mls/hr IV Q2H PRN PRN Reason: Hypokalemia Sodium Chloride (Normal Saline) 2,000 mls @ 500 mls/hr IV .CONTINUOUS PRN PRN Reason: Blood Glucose Last Admin: 11/03/17 19:48 Dose: 500 mls/hr Sodium Phosphate 60 mmole/ (Sodium Chloride) 270 mls @ 62.5 mls/hr IV ONETIME PRN PRN Reason: Low phophorus Stop: 11/03/17 22:00 Potassium Chloride (Kcl 20 Meq In Water 100 Ml) Confirm Administered Dose 100 mls @ as directed .ROUTE .STK-MED ONE Stop: 11/03/17 21:54 Last Admin: 11/03/17 22:00 Dose: Not Given Dextrose/Sodium Chloride (Dextrose 5%-Normal Saline) 1,000 mls @ 150 mls/hr IV ASDIRECTED [facility] Last Admin: 11/04/17 18:18 Dose: 150 mls/hr Insulin Detemir (Levemir) 12 unit SUBCUT ONETIME ONE Stop: 11/04/17 16:16 Last Admin: 11/04/17 16:07 Dose: 12 units Insulin Human Regular (Novolin R) 10 unit IVPUSH ONETIME ONE; Protocol Stop: 11/03/17 13:51 Last Admin: 11/03/17 14:01 Dose: 10 units Insulin Human Regular (Novolin R) 10 unit IVPUSH ONETIME ONE; Protocol Stop: 11/03/17 14:46 Last Admin: 11/03/17 14:52 Dose: 10 units Insulin Human Regular (Novolin R) 0 unit IV ONETIME ONE Stop: 11/03/17 16:42 Last Admin: 11/03/17 17:58 Dose: Not Given Lidocaine HCl (Xylocaine-Mpf 1%) 5 ml INJECT ONETIME ONE Stop: 11/03/17 21:29 Last Admin: 11/03/17 22:00 Dose: 5 ml Potassium Chloride (Klor-Con M20) 40 meq PO ONETIME ONE Stop: 11/05/17 08:31 Last Admin: 11/05/17 08:44 Dose: 40 meq - Exam Quality Assessment: DVT Prophylaxis General: Alert, Cooperative, No Acute Distress Lungs: Clear to Auscultation, Normal Respiratory Effort Cardiovascular: Regular Rate, Regular Rhythm, No Murmurs GI/Abdominal Exam: Soft, Non-Tender, No Organomegaly, No Distention Extremities: Non-Tender, No Pedal Edema Skin: Warm, Dry - Problem List Review Problem List Initiated/Reviewed/Updated: Yes - My Orders Last 24 Hours: My Active Orders 11/04/17 14:10 Communication Order [RC] STAT Notify Provider [RC] PRN Dextrose [Glutose 15] 15 gm PO ASDIRECTED PRN 11/04/17 16:03 Glucagon,Human Recombinant [GlucaGen] 1 mg IM ASDIRECTED PRN Insulin Aspart [NovoLOG] 0 unit SUBCUT QIDACANDBED PRN 11/04/17 18:56 Convert IV to Saline Lock [OM.PC] Routine 11/05/17 09:00 Magnesium Oxide 400 mg PO BID Magnesium Sulfate/Water [Magnesium Sulfate 2 GM in Water 50 ML] 2 gm Premix Bag 1 bag IV ONETIME 11/05/17 11:30 GLUCOSE POC LAB TO COLLECT [POC] QIDACANDBED 11/05/17 16:30 GLUCOSE POC LAB TO COLLECT [POC] QIDACANDBED 11/05/17 21:00 GLUCOSE POC LAB TO COLLECT [POC] QIDACANDBED 11/06/17 05:00 BASIC METABOLIC PANEL,BMP [CHEM] Timed MAGNESIUM [CHEM] Timed 11/06/17 07:30 GLUCOSE POC LAB TO COLLECT [POC] QIDACANDBED 11/06/17 11:30 GLUCOSE POC LAB TO COLLECT [POC] QIDACANDBED 11/06/17 16:30 GLUCOSE POC LAB TO COLLECT [POC] QIDACANDBED 11/06/17 21:00 GLUCOSE POC LAB TO COLLECT [POC] QIDACANDBED 11/07/17 07:30 GLUCOSE POC LAB TO COLLECT [POC] QIDACANDBED 11/07/17 11:30 GLUCOSE POC LAB TO COLLECT [POC] QIDACANDBED 11/07/17 16:30 GLUCOSE POC LAB TO COLLECT [POC] QIDACANDBED 11/07/17 21:00 GLUCOSE POC LAB TO COLLECT [POC] QIDACANDBED 11/08/17 07:30 GLUCOSE POC LAB TO COLLECT [POC] QIDACANDBED 11/08/17 11:30 GLUCOSE POC LAB TO COLLECT [POC] QIDACANDBED 11/08/17 16:30 GLUCOSE POC LAB TO COLLECT [POC] QIDACANDBED 11/08/17 21:00 GLUCOSE POC LAB TO COLLECT [POC] QIDACANDBED 11/09/17 07:30 GLUCOSE POC LAB TO COLLECT [POC] QIDACANDBED 11/09/17 11:30 GLUCOSE POC LAB TO COLLECT [POC] QIDACANDBED - Plan Plan:: ASSESSMENT AND PLAN DIABETIC KETOACIDOSIS-resolved -resume use of insulin pump today URINARY TRACT INFECTION-culture growing mixed erik only -Urine culture pending -discontinue Rocephin 1 g IV every 24 hours HYPERTENSION -Continue outpatient medical regimen SEIZURE DISORDER -Continue outpatient regimen MAINTENANCE ISSUES -DVT prophylaxis; Lovenox 40 mg subcutaneous daily -GI prophylaxis; not indicated -Mckeon catheter; not indicated -Nutrition; consistent carb diet -Nicotine dependence; not required CODE STATUS-FULL CODE ADMISSION STATUS-patient will be admitted to inpatient status, expect at least a 2 night hospital stay for evaluation and management of problems as outlined above. At the time of this admission I do not reasonably expected evaluation and management of this problem will require more than a 96 hour hospital stay. DISPOSITION-anticipate discharge to home after the hospital stay. PRIMARY CARE PROVIDER-Kobe Morel
[2017-11-05] MEDS: Lactobacillus Rhamnosus GG (Probiotic) Cap PO SCH ×2 (12:15→20:29)
[2017-11-05] MEDS: cefTRIAXone 1 GM in Sodium Chloride 0.9% 50 ML IV SCH (14:10)
[2017-11-05] MEDS: Enoxaparin 40 MG/0.4 ML Syringe SUBCUT SCH (20:29)
[2017-11-05] MEDS: atorvaSTATin 10 MG Tab PO SCH (20:30)
[2017-11-06] MEDS: Levothyroxine 75 MCG Tab PO SCH (07:45)
[2017-11-06] MEDS: levETIRAcetam 250 MG Tab PO SCH (08:48)
[2017-11-06] MEDS: Lactobacillus Rhamnosus GG (Probiotic) Cap PO SCH (08:48)
[2017-11-06] MEDS: Clopidogrel 75 MG Tab PO SCH (08:49)
[2017-11-06] MEDS: Losartan 50 MG Tab PO SCH (08:49)
[2017-11-06] MEDS: Metoprolol Tartrate 25 MG Tab PO SCH (08:49)
[2017-11-06] MEDS: Aspirin 81 MG Tab.Chew PO SCH (08:50)
[2017-11-06] MEDS: Magnesium Oxide 400 MG Tab PO SCH (08:50)
--- NOTE | 2017-11-06 09:15 | PCM.DCSUM1 ---
Discharge Summary - Hospital Course Brief History: Ms. jamil is an 82-year-old woman who was admitted through the emergency department with weakness and lethargy secondary to gastroenteritis as well as diabetic ketoacidosis. Diagnosis: Stroke: No - Discharge Data Discharge Date: 11/06/17 Discharge Disposition: Home, Self-Care 01 Condition: Good - Discharge Diagnosis/Problem(s) (1) Gastroenteritis SNOMED Code(s): 03058641 ICD Code: K52.9 - NONINFECTIVE GASTROENTERITIS AND COLITIS, UNSPECIFIED Status: Acute Current Visit: Yes (2) Diabetic ketoacidosis SNOMED Code(s): 145479878, 057485156 ICD Code: E13.10 - OTH DIABETES MELLITUS WITH KETOACIDOSIS WITHOUT COMA Status: Acute Current Visit: Yes Qualifiers: Diabetes mellitus type: type 1 Diabetes mellitus complication detail: without coma Qualified Code(s): E10.10 - Type 1 diabetes mellitus with ketoacidosis without coma (3) Seizure disorder SNOMED Code(s): 885575007 ICD Code: G40.909 - EPILEPSY, UNSP, NOT INTRACTABLE, WITHOUT STATUS EPILEPTICUS Status: Chronic Current Visit: No (4) Type 1 diabetes mellitus SNOMED Code(s): 89063002 ICD Code: E10.9 - TYPE 1 DIABETES MELLITUS WITHOUT COMPLICATIONS Status: Chronic Current Visit: No - Patient Summary/Data Consults: Consultations 11/04/17 08:32 Consult to [employer] [Consult to Diabetic Nurse Specialist] [CONS] Routine Comment: Physician Instructions: Special Instructions: see prior to d/c home Person Notified: Maryanne Pena Date Notified: 11/04/17 Time Notified: 08:33 Hospital Course: Ms. Jamil is an 82-year-old woman who is admitted through the emergency department with recent history of weakness, nausea vomiting, diarrhea, and diabetic ketoacidosis. She reports that she's not felt well over the past few weeks, becoming more weak and lethargic. Over the past 2-3 days she has had a few loose stools and one episode of vomiting. She has a known history of type 1 diabetes mellitus and currently uses an insulin pump, typically blood sugars have been under good control. Over the past few days blood sugars a been elevated and her oral intake has been very minimal. On evaluation in the emergency department she is found to have evidence of ketoacidosis with a significant decrease in her carbon dioxide level associated with a marked elevation in anion gap and significant acidosis with partial respiratory compensation. On admission she was given IV insulins and vigorous IV fluid replacement per diabetic ketoacidosis protocol. Electrolytes were monitored and replaced as needed in per protocol. After 24 hours a ketoacidosis has essentially resolved and the plan was to place the patient back on her insulins pump but she was too confused at that point to be able to manage it. She was given a dose of long- acting insulins and NovoLog sliding scale. Blood sugars remained under adequate control and the following day confusion and resolved enough that the pump was placed back on. She was monitored for an additional 24 hours after the pump was placed on and blood sugars were within acceptable range. Initially was felt that she likely had an underlying urinary tract infection and she was started on IV Rocephin. Urine culture was obtained but grew out only mixed erik so the antibiotic therapy was discontinued. Activity will be as tolerated and she will resume her consistent carbohydrate diet. Follow-up appointment has been arranged for primary care in 10 days and with the wellness educator in 2 days. - Patient Instructions Diet: Diabetic Diet Activity: As Tolerated - Discharge Plan Home Medications: Home Meds Aspirin [Kate Chewable Aspirin] 81 mg PO DAILY 10/26/13 [History] Calcium Carb & Citrate/Vit D3 [Calcium + D3 ER Tablet] 1 each PO DAILY 10/26/13 [History] Insulin Aspart [NovoLOG] ASDIRECTED 10/26/13 [History] Levothyroxine Sodium 1 tab PO DAILY 10/26/13 [History] Losartan [Cozaar] 1 tab PO BID 10/26/13 [History] levETIRAcetam [Keppra] 500 mg PO BID 10/26/13 [History] Clopidogrel [Plavix] 75 mg PO DAILY #30 tablet 10/30/13 [Rx] Metoprolol Tartrate 25 mg PO BID #60 tablet 10/30/13 [Rx] atorvaSTATin [Lipitor] 10 mg PO BEDTIME #90 tab 10/30/13 [Rx] Referrals: Jyoti Burnette RN [Registered Nurse] - 11/08/17 12:30 pm () Kobe Horton NP [Nurse Practitioner] - 11/16/17 1:00 pm - Discharge Summary/Plan Comment DC Time >30 min.: No - Patient Data Vitals - Most Recent: Last Vital Signs Temp 97.5 F 11/06/17 07:51 Pulse 74 11/06/17 08:49 Resp 18 11/06/17 07:51 BP 195/88 H 11/06/17 08:49 Pulse Ox 97 11/06/17 07:51 Weight - Most Recent: 121 lb 14.65 oz I&O - Last 24 hours: Intake & Output 11/05/17 11/06/17 11/06/17 22:59 06:59 14:59 Intake Total 840 Output Total 800 Balance 40 Lab Results - Last 24 hrs: Laboratory Results - last 24 hr 11/06/17 Range/Units 05:18 Sodium 133 L (140-148) mmol/L Potassium 3.7 (3.6-5.2) mmol/L Chloride 100 (100-108) mmol/L Carbon Dioxide 26 (21-32) mmol/L Anion Gap 10.7 (5.0-14.0) mmol/L BUN 4 L (7-18) mg/dL Creatinine 0.6 (0.6-1.0) mg/dL Est Cr Clr Drug Dosing 58.63 mL/min Estimated GFR (MDRD) > 60 (>60) Glucose 267 H (74-106) mg/dL Calcium 8.3 L (8.5-10.1) mg/dL Magnesium 2.0 (1.8-2.4) mg/dL [facility] Results - Last 24 hrs: Microbiology 11/04/17 08:27 Urine Culture - Final Urine, Clean Catch MIXED ERIK DAY 2 Med Orders - Current: Current Medications Acetaminophen (Tylenol) 650 mg PO Q4H PRN PRN Reason: Pain (Mild 1-3)/fever Albuterol (Proventil Neb Soln) 2.5 mg NEB Q4H PRN PRN Reason: Shortness Of Breath/wheezing Aspirin (Aspirin) 81 mg PO DAILY [facility] Last Admin: 11/06/17 08:50 Dose: 81 mg Atorvastatin Calcium (Lipitor) 10 mg PO BEDTIME [facility] Last Admin: 11/05/17 20:30 Dose: 10 mg Clopidogrel Bisulfate (Plavix) 75 mg PO DAILY [facility] Last Admin: 11/06/17 08:49 Dose: 75 mg Dextrose (Glutose 15) 15 gm PO ASDIRECTED PRN PRN Reason: Hypoglycemia Dextrose/Water (Dextrose 50% In Water) 50 ml IVPUSH ONETIME PRN PRN Reason: Blood Glucose Enoxaparin Sodium (Lovenox) 40 mg SUBCUT Q24H [facility] Last Admin: 11/05/17 20:29 Dose: 40 mg Glucagon (Glucagen) 1 mg IM ASDIRECTED PRN PRN Reason: HYPOGLYCEMIA Insulin Aspart (Novolog) 0 unit SUBCUT QIDACANDBED PRN; Protocol PRN Reason: LOW CORRECTIONAL DOSE Last Admin: 11/05/17 12:08 Dose: 3 units Lactobacillus Rhamnosus (Culturelle) 1 cap PO BID [facility] Last Admin: 11/06/17 08:48 Dose: 1 cap Levetiracetam (Keppra) 500 mg PO BID [facility] Last Admin: 11/06/17 08:48 Dose: 500 mg Levothyroxine Sodium (Levothyroxine) 75 mcg PO ACBREAKFAST [facility] Last Admin: 11/06/17 07:45 Dose: 75 mcg Losartan Potassium (Cozaar) 50 mg PO BID [facility] Last Admin: 11/06/17 08:49 Dose: 50 mg Magnesium Oxide (Magnesium Oxide) 400 mg PO BID [facility] Last Admin: 11/06/17 08:50 Dose: 400 mg Metoprolol Tartrate (Lopressor) 25 mg PO BID [facility] Last Admin: 11/06/17 08:49 Dose: 25 mg Ondansetron HCl (Zofran) 4 mg IV Q4H PRN PRN Reason: Nausea/Vomiting Oxycodone HCl (Oxycodone) 5 mg PO Q4H PRN PRN Reason: Pain (moderate 4-6) Sodium Chloride (Saline Flush) 10 ml FLUSH ASDIRECTED PRN PRN Reason: Keep Vein Open Discontinued Medications Sodium Chloride (Normal Saline) 1,000 mls @ 1,000 mls/hr IV ASDIRECTED [facility] Last Admin: 11/03/17 14:51 Dose: 1,000 mls/hr Insulin Human Regular 100 unit (/ Sodium Chloride) 101 mls @ 5.03 mls/hr IV TITRATE [facility]; Protocol Last Titration: 11/04/17 09:49 Dose: 0.07 unit/kg/hr, 4 mls/hr Magnesium Sulfate 2 gm/ Premix 50 mls @ 25 mls/hr IV ONETIME PRN PRN Reason: low magnesium Last Admin: 11/03/17 18:13 Dose: 25 mls/hr Potassium Chloride 20 meq/ (Premix) 100 mls @ 50 mls/hr IV ONETIME PRN PRN Reason: LOW POTASSIUM Last Admin: 11/03/17 22:00 Dose: 50 mls/hr Potassium Chloride 20 meq/ (Premix) 100 mls @ 50 mls/hr IV Q2H PRN PRN Reason: Hypokalemia Potassium Chloride 20 meq/ (Premix) 100 mls @ 50 mls/hr IV Q2H PRN PRN Reason: Hypokalemia Sodium Chloride (Normal Saline) 2,000 mls @ 500 mls/hr IV .CONTINUOUS PRN PRN Reason: Blood Glucose Last Admin: 11/03/17 19:48 Dose: 500 mls/hr Sodium Phosphate 60 mmole/ (Sodium Chloride) 270 mls @ 62.5 mls/hr IV ONETIME PRN PRN Reason: Low phophorus Stop: 11/03/17 22:00 Potassium Chloride (Kcl 20 Meq In Water 100 Ml) Confirm Administered Dose 100 mls @ as directed .ROUTE .STK-MED ONE Stop: 11/03/17 21:54 Last Admin: 11/03/17 22:00 Dose: Not Given Dextrose/Sodium Chloride (Dextrose 5%-Normal Saline) 1,000 mls @ 150 mls/hr IV ASDIRECTED [facility] Last Admin: 11/04/17 18:18 Dose: 150 mls/hr Ceftriaxone Sodium 1 gm/ (Sodium Chloride) 50 mls @ 100 mls/hr IV Q24H [facility] Last Admin: 11/05/17 14:10 Dose: Not Given Magnesium Sulfate 2 gm/ Premix 50 mls @ 25 mls/hr IV ONETIME ONE Stop: 11/05/17 10:59 Last Admin: 11/05/17 09:03 Dose: 25 mls/hr Insulin Detemir (Levemir) 12 unit SUBCUT ONETIME ONE Stop: 11/04/17 16:16 Last Admin: 11/04/17 16:07 Dose: 12 units Insulin Human Regular (Novolin R) 10 unit IVPUSH ONETIME ONE; Protocol Stop: 11/03/17 13:51 Last Admin: 11/03/17 14:01 Dose: 10 units Insulin Human Regular (Novolin R) 10 unit IVPUSH ONETIME ONE; Protocol Stop: 11/03/17 14:46 Last Admin: 11/03/17 14:52 Dose: 10 units Insulin Human Regular (Novolin R) 0 unit IV ONETIME ONE Stop: 11/03/17 16:42 Last Admin: 11/03/17 17:58 Dose: Not Given Lidocaine HCl (Xylocaine-Mpf 1%) 5 ml INJECT ONETIME ONE Stop: 11/03/17 21:29 Last Admin: 11/03/17 22:00 Dose: 5 ml Potassium Chloride (Klor-Con M20) 40 meq PO ONETIME ONE Stop: 11/05/17 08:31 Last Admin: 11/05/17 08:44 Dose: 40 meq - Exam General: Reports: Alert, Cooperative, No Acute Distress Lungs: Reports: Clear to Auscultation, Normal Respiratory Effort Cardiovascular: Reports: Regular Rate, Regular Rhythm GI/Abdominal Exam: Soft, Non-Tender, No Organomegaly, No Distention Extremities: Non-Tender, No Pedal Edema Skin: Reports: Warm, Dry
== END 2017-11-06 10:05 | disposition home or self-care (01) | DRG 639 ==
LOC: JP.ED 12:43 → JP.ICU 15:35
PROVIDERS: ADMIT Hospitalist; ATTEND Hospitalist
DX: E10.10 Type 1 diabetes mellitus with ketoacidosis without coma (principal); K52.9 Noninfective gastroenteritis and colitis, unspecified; H54.7 Unspecified visual loss; E78.00 Pure hypercholesterolemia, unspecified; M19.90 Unspecified osteoarthritis, unspecified site; R56.9 Unspecified convulsions; F32.9 Major depressive disorder, single episode, unspecified; I10 Essential (primary) hypertension; G40.909 Epilepsy, unspecified, not intractable, without status epilepticus; E03.9 Hypothyroidism, unspecified; Z90.49 Acquired absence of other specified parts of digestive tract; Z96.41 Presence of insulin pump (external) (internal); Z88.1 Allergy status to other antibiotic agents; Z88.0 Allergy status to penicillin; Z88.2 Allergy status to sulfonamides; Z79.82 Long term (current) use of aspirin; R53.81 Other malaise; R19.7 Diarrhea, unspecified; R53.1 Weakness; R41.0 Disorientation, unspecified; R11.2 Nausea with vomiting, unspecified; Z79.4 Long term (current) use of insulin; Z79.899 Other long term (current) drug therapy
CPT/HCPCS: 36415; 36600; 80053; 82803; 83690; 85025; 99285; A9270; J7030; 71045; 71045-26; 80048; 81001; 82962; 83735; 84100; 84132; 84443; 87086; 99284; J0696; J1650; J3475; J3480; J7050

== ENCOUNTER 2018-05-27 13:45 | Inpatient (IN) | payer MEDICARE, BC ==
[2018-05-27] MEDS ORDERED: Sodium Chloride 0.9% 1,000 ML IV ONE (14:43)
--- NOTE | 2018-05-27 14:52 | EDM.PDOC ---
<Gissel Nava N - Last Filed: 05/27/18 14:47> ED HPI GENERAL MEDICAL PROBLEM - General Chief Complaint: General Stated Complaint: [facility] Time Seen by Provider: 05/27/18 15:52 - History of Present Illness INITIAL COMMENTS - FREE TEXT/NARRATIVE: Gaye is an 82-year-old female who presents to the ER today by ambulance with complaints of elevated blood glucose levels. She has a history of Type 1 DM and has had an insulin pump for the past several years. She reports a blood glucose level of >500 today. She does check her blood glucose levels frequently at home , and a review of the trends demonstrates blood glucose levels ranging from 70- 400 in the past week. She denies feeling ill recently, and would like to go home. Reports some confusion, fatigue, one episode of vomiting, decreased appetite, dry mouth, and cool extremities. - Related Data Allergies Allergy/AdvReac Type Severity Reaction Status Date / Time Penicillins Allergy Rash Verified 05/27/18 14:09 Sulfa (Sulfonamide Allergy Joint Pain Verified 05/27/18 14:09 Antibiotics) erythromycin base AdvReac Nausea Verified 05/27/18 14:09 [Erythromycin Base] Home Meds: Home Meds Aspirin [Kate Chewable Aspirin] 81 mg PO DAILY 10/26/13 [History] Calcium Carb & Citrate/Vit D3 [Calcium + D3 ER Tablet] 1 each PO DAILY 10/26/13 [History] Insulin Aspart [NovoLOG] ASDIRECTED 10/26/13 [History] Levothyroxine Sodium 1 tab PO DAILY 10/26/13 [History] Losartan [Cozaar] 1 tab PO BID 10/26/13 [History] levETIRAcetam [Keppra] 500 mg PO BID 10/26/13 [History] Clopidogrel [Plavix] 75 mg PO DAILY #30 tablet 10/30/13 [Rx] Metoprolol Tartrate 25 mg PO BID #60 tablet 10/30/13 [Rx] atorvaSTATin [Lipitor] 10 mg PO BEDTIME #90 tab 10/30/13 [Rx] Past Medical History HEENT History: Reports: Impaired Vision Cardiovascular History: Reports: High Cholesterol 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: Musculoskeletal History: Reports: Arthritis, Fracture Other Musculoskeletal History: finger Neurological History: Reports: Seizure Psychiatric History: Reports: Depression Endocrine/Metabolic History: Reports: Diabetes, Type I, Hypothyroidism - Infectious Disease History Infectious Disease History: Reports: Chicken Pox, Shingles - Past Surgical History GI Surgical History: Reports: Appendectomy, Cholecystectomy, Colonoscopy Female Surgical History: Reports: Tubal Ligation Social & Family History - Tobacco Use Smoking Status *Q: Never Smoker - Caffeine Use Caffeine Use: Reports: Coffee, Tea ED ROS GENERAL - Review of Systems Review Of Systems: See Below Constitutional: Reports: Fatigue, Decreased Appetite. Denies: Fever, Chills, Malaise HEENT: Reports: No Symptoms Respiratory: Reports: No Symptoms. Denies: Shortness of Breath, Pleuritic Chest Pain Cardiovascular: Reports: No Symptoms. Denies: Chest Pain, Edema, Palpitations Endocrine: Reports: Fatigue, High Glucose. Denies: Low Glucose, Polydypsia, Polyuria GI/Abdominal: Reports: Decreased Appetite, Vomiting (x1 at home). Denies: Abdominal Pain, Constipation, Diarrhea, Nausea : Reports: No Symptoms. Denies: Frequency, Urgency Musculoskeletal: Reports: No Symptoms Skin: Reports: No Symptoms Neurological: Reports: Confusion, Weakness. Denies: Headache, Numbness Psychiatric: Reports: No Symptoms Hematologic/Lymphatic: Reports: No Symptoms ED EXAM, GENERAL - Physical Exam Exam Limited By: No Limitations General Appearance: Alert, WD/WN, No Apparent Distress, Lethargic Eye Exam: Bilateral Eye: Normal Inspection Ears: Other (Wax impaired view of TM) Ear Exam: Bilateral Ear: Auricle Normal, Canal Normal Nose: Normal Inspection Throat/Mouth: Normal Inspection, Normal Lips, Normal Voice, Other (Various dental caries; dry mucous membranes) Respiratory/Chest: No Respiratory Distress, Lungs Clear, Decreased Breath Sounds (Diminished in the right lobes) Cardiovascular: Regular Rate, Rhythm, No Edema, No Murmur, No Rub GI/Abdominal: Normal Bowel Sounds, Soft, Non-Tender, No Distention, No Mass (Female) Exam: Deferred Rectal (Female) Exam: Deferred Neurological: Alert, Oriented, Normal Cognition, No Motor/Sensory Deficits, Other (Appears fatigued) Psychiatric: Normal Affect, Normal Mood Skin Exam: Warm, Dry, Intact Course - Vital Signs Last Recorded V/S: Last Vital Signs Temp 95.8 F 05/27/18 14:16 Pulse 92 05/27/18 14:16 Resp 10 L 05/27/18 14:16 BP 133/52 L 05/27/18 14:16 Pulse Ox 100 05/27/18 14:16 - Orders/Labs/Meds Orders: Active Orders 24 hr Category Date Time Status Regular Insulin,Human 100 Units in Normal Saline @ 0.1 Med 05/27/18 16:00 Ordered UNITS/KG/HR Insulin Regular, Human [HumuLIN R] 100 unit Sodium Chloride 0.9% [Normal Saline] 99 ml IV TITRATE Sodium Chloride 0.9% [Normal Saline] 1,000 ml Med 05/27/18 16:00 Ordered IV ASDIRECTED Labs: Laboratory Tests 05/27/18 05/27/18 05/27/18 Range/Units 14:38 14:38 14:38 WBC 14.7 H (4.5-11.0) K/uL RBC 4.37 (3.30-5.50) M/uL Hgb 14.7 D (12.0-15.0) g/dL Hct 43.5 (36.0-48.0) % MCV 100 H (80-98) fL MCH 34 H (27-31) pg MCHC 34 (32-36) % Plt Count 293 (150-400) K/uL Neut % (Auto) 94 H (36-66) % Lymph % (Auto) 4 L (24-44) % [place] % (Auto) 2 (2-6) % Eos % (Auto) 0 L (2-4) % Baso % (Auto) 0 (0-1) % Puncture Site Rt.radial ABG pH 7.251 L (7.350-7.450) ABG pCO2 25.1 L (35.0-42.0) mmHg ABG pO2 96.7 (75.0-100.0) mmHg ABG HCO3 10.6 L (22.0-26.0) mmol/L ABG Total CO2 9.7 L (21.0-25.0) mmol/L ABG O2 Saturation 96.0 (95.0-98.0) % ABG O2 Content 19.0 (15.0-23.0) %vol ABG Base Excess -15.0 mm/L ABG Hemoglobin 14.2 (12.0-16.0) g/dL ABG Oxyhemoglobin 94.7 % ABG Carboxyhemoglobin 0.7 (0.0-1.6) % ABG Methemoglobin 0.7 % Omar Test Passed O2 Delivery Device Room air Sodium 129 L (140-148) mmol/L Potassium 5.0 (3.6-5.2) mmol/L Chloride 90 L (100-108) mmol/L Carbon Dioxide 14 L (21-32) mmol/L Anion Gap 30.0 H (5.0-14.0) mmol/L BUN 17 D (7-18) mg/dL Creatinine 1.2 H D (0.6-1.0) mg/dL Est Cr Clr Drug Dosing 26.86 mL/min Estimated GFR (MDRD) 43 L (>60) Glucose 518 H* (74-106) mg/dL Calcium 9.4 (8.5-10.1) mg/dL Total Bilirubin 1.1 H D (0.2-1.0) mg/dL AST 29 (15-37) U/L ALT 29 (12-78) U/L Alkaline Phosphatase 111 (46-116) U/L Total Protein 7.2 (6.4-8.2) g/dL Albumin 3.8 (3.4-5.0) g/dL Globulin 3.4 (2.3-3.5) g/dL Albumin/Globulin Ratio 1.1 L (1.2-2.2) Lipase (73-393) U/L Urine Color Urine Appearance Urine pH (4.5-8.0) Ur Specific [place] (1.008-1.030) Urine Protein (NEGATIVE) mg/dL Urine Glucose (UA) (NEGATIVE) mg/dL Urine Ketones (NEGATIVE) mg/dL Urine Occult Blood (NEGATIVE) Urine Nitrite (NEGATIVE) Urine Bilirubin (NEGATIVE) Urine Urobilinogen (NORMAL) mg/dL Ur Leukocyte Esterase (NEGATIVE) Urine RBC (0-5) Urine WBC (0-5) Ur Epithelial Cells Amorphous Sediment Urine Bacteria Urine Mucus Urine Other Ketones (NEGATIVE) 05/27/18 05/27/18 05/27/18 Range/Units 14:38 14:38 15:23 WBC (4.5-11.0) K/uL RBC (3.30-5.50) M/uL Hgb (12.0-15.0) g/dL Hct (36.0-48.0) % MCV (80-98) fL MCH (27-31) pg MCHC (32-36) % Plt Count (150-400) K/uL Neut % (Auto) (36-66) % Lymph % (Auto) (24-44) % [place] % (Auto) (2-6) % Eos % (Auto) (2-4) % Baso % (Auto) (0-1) % Puncture Site ABG pH (7.350-7.450) ABG pCO2 (35.0-42.0) mmHg ABG pO2 (75.0-100.0) mmHg ABG HCO3 (22.0-26.0) mmol/L ABG Total CO2 (21.0-25.0) mmol/L ABG O2 Saturation (95.0-98.0) % ABG O2 Content (15.0-23.0) %vol ABG Base Excess mm/L ABG Hemoglobin (12.0-16.0) g/dL ABG Oxyhemoglobin % ABG Carboxyhemoglobin (0.0-1.6) % ABG Methemoglobin % Omar Test O2 Delivery Device Sodium (140-148) mmol/L Potassium (3.6-5.2) mmol/L Chloride (100-108) mmol/L Carbon Dioxide (21-32) mmol/L Anion Gap (5.0-14.0) mmol/L BUN (7-18) mg/dL Creatinine (0.6-1.0) mg/dL Est Cr Clr Drug Dosing mL/min Estimated GFR (MDRD) (>60) Glucose (74-106) mg/dL Calcium (8.5-10.1) mg/dL Total Bilirubin (0.2-1.0) mg/dL AST (15-37) U/L ALT (12-78) U/L Alkaline Phosphatase (46-116) U/L Total Protein (6.4-8.2) g/dL Albumin (3.4-5.0) g/dL Globulin (2.3-3.5) g/dL Albumin/Globulin Ratio (1.2-2.2) Lipase 50 L (73-393) U/L Urine Color Yellow Urine Appearance Slightly cloudy Urine pH 5.0 (4.5-8.0) Ur Specific [place] 1.020 (1.008-1.030) Urine Protein Negative (NEGATIVE) mg/dL Urine Glucose (UA) >1000 H (NEGATIVE) mg/dL Urine Ketones 150 H (NEGATIVE) mg/dL Urine Occult Blood Large (NEGATIVE) Urine Nitrite Negative (NEGATIVE) Urine Bilirubin Negative (NEGATIVE) Urine Urobilinogen Normal (NORMAL) mg/dL Ur Leukocyte Esterase Small (NEGATIVE) Urine RBC 5-10 H (0-5) Urine WBC 20-30 H (0-5) Ur Epithelial Cells Moderate Amorphous Sediment Not seen Urine Bacteria Few Urine Mucus Not seen Urine Other Ketones Small H (NEGATIVE) Meds: Medications Discontinued Medications Generic Name Dose Route Start Last Admin Trade Name [place] PRN Reason Stop Dose Admin Sodium Chloride 1,000 mls @ 1,000 mls/hr 05/27/18 14:43 05/27/18 15:32 Normal Saline IV 05/27/18 15:42 1,000 mls/hr .BOLUS ONE Administration Departure - Departure Disposition: Admitted As Inpatient 68 Clinical Impression: Diabetic ketoacidosis Qualifiers: Diabetes mellitus type: type 1 Diabetes mellitus complication detail: without coma Qualified Code(s): E10.10 - Type 1 diabetes mellitus with ketoacidosis without coma - Discharge Information Referrals: Kobe Horton ENGINE SETTER [Primary Care Provider] - Forms: ED Department Discharge Additional Instructions: <OfficerSuhail - Last Filed: 05/27/18 16:00> ED HPI GENERAL MEDICAL PROBLEM - General Source of Information: Reports: Patient, Family, RN Notes Reviewed History Limitations: Reports: No Limitations - History of Present Illness INITIAL COMMENTS - FREE TEXT/NARRATIVE: Family believes they may have discovered the problem they noted that the insulin pump is empty Past Medical History Cardiovascular History: Reports: High Cholesterol, Hypertension Neurological History: Reports: Seizure ED EXAM, GENERAL - Physical Exam Exam: See Below Free Text/Narrative:: Agreed agree with physical exam below Departure - Departure Time of Disposition: 16:00 Condition: Fair - Assessment/Plan Plan: Assessment Acuity = acute Site and laterality = diabetic ketoacidosis complicated patient with known history of type 1 diabetes mellitus as well as hypothyroidism, hypertension and dyslipidemia Etiology = secondary to insulin pump being empty Manifestations = slight confusion, hyperglycemia Location of injury = Home Lab values = WBC elevated at 14.7 consistent with leukocytosis, ABG 7.25 consistent with an acidosis PCO2 25.1 bicarbonate 10.6 values consistent with diabetic ketoacidosis, sodium low at 129 consistent hyponatremia however corrected sodium is at 136, glucose is 518 consistent hyperglycemia creatinine elevated 1.2 consistent with acute renal failure stage G IIIB total bilirubin elevated 1.1 consistent with hyperbilirubinemia, urinalysis positive for ketones 5-10 rbc's and 2030 WBCs consistent with hematuria and pyuria respectively cultures pending serum ketones positive in the blood Plan Called discussed case with hospitalist memorial mason at 1550 agreed to come and evaluate the patient in the emergency department for admission she has been started on an insulin drip 0.14 units per kilogram per hour This note was dictated using [employer] voice recognition software please call with any questions on syntax or grammar. * I, Temporary Officer was personally available for consultation in the ED. I have reviewed the chart and agree with the documentation as recorded by the Manager Pe student, including the assessment, treatment plan and disposition. * I, Temporary Officer personally saw and examined the patient. I have reviewed and agree with the ENGINE SETTER student's findings.
[2018-05-27] MEDS ORDERED: Sodium Chloride 0.9% 1,000 ML IV SCH ×2 (16:00→17:08)
--- NOTE | 2018-05-27 16:46 | PCM.HP ---
H&P History of Present Illness - General Date of Service: 05/27/18 Admit Problem/Dx: Admission Diagnosis/Problem Admission Diagnosis/Problem Diabetic ketoacidosis Source of Information: Patient, Family, Provider History Limitations: Reports: Altered Mental Status (mild confusion) - History of Present Illness Initial Comments - Free Text/Narative: Gaye presents to the emergency room today with hyperglycemia. She is a little bit confused today but does a pretty good job with recent events. Some history is gained from her as well as the emergency room staff. She reportedly change the cartridge on her insulin pump yesterday. Shortly after this cartridge was changed the pump started noticing elevated blood sugars. These jaleesa throughout the evening and into this morning. Several attempts to bolus insulin were made but blood sugars continued to climb. When blood sugars were greater than 500 she was brought to the emergency room for evaluation. She reports that she feels a little bit off/confused. She does not have any physical complaints. No headache, blurry vision, shortness of breath, abdominal pain, nausea. She has noted some urinary frequency today but does not have dysuria. No fevers. She does feel chilled but this is normal for her. Appetite has been normal. Workup in the emergency room was suggestive of mild diabetic ketoacidosis with pH of 7.2 and significant elevation of anion gap. She also has small ketones noted in the urine. She has been started on an insulin drip and will be admitted for further management. - Related Data Allergies/Adverse Reactions: Allergies Allergy/AdvReac Type Severity Reaction Status Date / Time Penicillins Allergy Rash Verified 05/27/18 14:09 Sulfa (Sulfonamide Allergy Joint Pain Verified 05/27/18 14:09 Antibiotics) erythromycin base AdvReac Nausea Verified 05/27/18 14:09 [Erythromycin Base] Home Medications: Home Meds Aspirin [Kate Chewable Aspirin] 81 mg PO BEDTIME 10/26/13 [History] Insulin Aspart [NovoLOG] 1 unit SUBCUT ASDIRECTED 10/26/13 [History] Levothyroxine Sodium 1 tab PO ACBREAKFAST 10/26/13 [History] Losartan [Cozaar] 1 tab PO BID 10/26/13 [History] levETIRAcetam [Keppra] 500 mg PO BID 10/26/13 [History] Past Medical History HEENT History: Reports: Impaired Vision Cardiovascular History: Reports: High Cholesterol, Hypertension 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: Musculoskeletal History: Reports: Arthritis, Fracture Other Musculoskeletal History: finger Neurological History: Reports: Seizure Psychiatric History: Reports: Depression Endocrine/Metabolic History: Reports: Diabetes, Type I, Hypothyroidism - Infectious Disease History Infectious Disease History: Reports: Chicken Pox, Shingles - Past Surgical History GI Surgical History: Reports: Appendectomy, Cholecystectomy, Colonoscopy Female Surgical History: Reports: Tubal Ligation Social & Family History - Family History Cardiac: Denies: CAD - Tobacco Use Smoking Status *Q: Never Smoker - Caffeine Use Caffeine Use: Reports: Coffee, Tea - Alcohol Use Alcohol Use History: No H&P Review of Systems - Review of Systems: Review Of Systems: See Below Free Text/Narrative: A complete 12 point review of systems was obtained. Pertinent positives and negatives are noted in the history of present illness. All other systems were reviewed and were negative except as noted. Exam - Exam Exam: See Below - Vital Signs Vital Signs: Last Vital Signs Temp 35.4 C 05/27/18 14:16 Pulse 98 05/27/18 16:16 Resp 20 05/27/18 16:16 BP 141/48 H 05/27/18 16:16 Pulse Ox 98 05/27/18 16:16 Weight: 47.627 kg - Exam Quality Assessment: No: Supplemental Oxygen General: Alert, Cooperative. No: Oriented, Mild Distress HEENT: Conjunctiva Clear. No: Mucosa Moist & [place] (dry), Scleral Icterus Neck: Supple, Trachea Midline. No: Lymphadenopathy Lungs: Clear to Auscultation, Normal Respiratory Effort Cardiovascular: Regular Rate, Regular Rhythm, Systolic Murmur GI/Abdominal Exam: Normal Bowel Sounds, Soft, Non-Tender, No Distention, Other ( insulin pump needle in RLQ, site appears normal ) Back Exam: Normal Inspection, Full Range of Motion Extremities: No Pedal Edema. No: Increased Warmth Peripheral Pulses: 1+: Dorsalis Pedis (L), Dorsalis Pedis (R) Skin: Warm, Dry, Other (several scabbed lesions right shoulder with some scarring. few scattered scabs on lower legs ) Neuro Extensive - Mental Status: Alert, Nl Response to Commands. No: Oriented x3 Neuro Extensive - Motor, Sensory, Reflexes: CN II-XII Intact. No: Dysarthria, Abnormal Motor, Tremor Psychiatric: Alert, Normal Affect - Patient Data Lab Results Last 24 hrs: Laboratory Results - last 24 hr 05/27/18 05/27/18 05/27/18 Range/Units 14:38 14:38 14:38 WBC 14.7 H (4.5-11.0) K/uL RBC 4.37 (3.30-5.50) M/uL Hgb 14.7 D (12.0-15.0) g/dL Hct 43.5 (36.0-48.0) % MCV 100 H (80-98) fL MCH 34 H (27-31) pg MCHC 34 (32-36) % Plt Count 293 (150-400) K/uL Neut % (Auto) 94 H (36-66) % Lymph % (Auto) 4 L (24-44) % [place] % (Auto) 2 (2-6) % Eos % (Auto) 0 L (2-4) % Baso % (Auto) 0 (0-1) % Puncture Site Rt.radial ABG pH 7.251 L (7.350-7.450) ABG pCO2 25.1 L (35.0-42.0) mmHg ABG pO2 96.7 (75.0-100.0) mmHg ABG HCO3 10.6 L (22.0-26.0) mmol/L ABG Total CO2 9.7 L (21.0-25.0) mmol/L ABG O2 Saturation 96.0 (95.0-98.0) % ABG O2 Content 19.0 (15.0-23.0) %vol ABG Base Excess -15.0 mm/L ABG Hemoglobin 14.2 (12.0-16.0) g/dL ABG Oxyhemoglobin 94.7 % ABG Carboxyhemoglobin 0.7 (0.0-1.6) % ABG Methemoglobin 0.7 % Omar Test Passed O2 Delivery Device Room air Sodium 129 L (140-148) mmol/L Potassium 5.0 (3.6-5.2) mmol/L Chloride 90 L (100-108) mmol/L Carbon Dioxide 14 L (21-32) mmol/L Anion Gap 30.0 H (5.0-14.0) mmol/L BUN 17 D (7-18) mg/dL Creatinine 1.2 H D (0.6-1.0) mg/dL Est Cr Clr Drug Dosing 26.86 mL/min Estimated GFR (MDRD) 43 L (>60) Glucose 518 H* (74-106) mg/dL Calcium 9.4 (8.5-10.1) mg/dL Total Bilirubin 1.1 H D (0.2-1.0) mg/dL AST 29 (15-37) U/L ALT 29 (12-78) U/L Alkaline Phosphatase 111 (46-116) U/L Total Protein 7.2 (6.4-8.2) g/dL Albumin 3.8 (3.4-5.0) g/dL Globulin 3.4 (2.3-3.5) g/dL Albumin/Globulin Ratio 1.1 L (1.2-2.2) Lipase (73-393) U/L Urine Color Urine Appearance Urine pH (4.5-8.0) Ur Specific [place] (1.008-1.030) Urine Protein (NEGATIVE) mg/dL Urine Glucose (UA) (NEGATIVE) mg/dL Urine Ketones (NEGATIVE) mg/dL Urine Occult Blood (NEGATIVE) Urine Nitrite (NEGATIVE) Urine Bilirubin (NEGATIVE) Urine Urobilinogen (NORMAL) mg/dL Ur Leukocyte Esterase (NEGATIVE) Urine RBC (0-5) Urine WBC (0-5) Ur Epithelial Cells Amorphous Sediment Urine Bacteria Urine Mucus Urine Other Ketones (NEGATIVE) 05/27/18 05/27/18 05/27/18 Range/Units 14:38 14:38 15:23 WBC (4.5-11.0) K/uL RBC (3.30-5.50) M/uL Hgb (12.0-15.0) g/dL Hct (36.0-48.0) % MCV (80-98) fL MCH (27-31) pg MCHC (32-36) % Plt Count (150-400) K/uL Neut % (Auto) (36-66) % Lymph % (Auto) (24-44) % [place] % (Auto) (2-6) % Eos % (Auto) (2-4) % Baso % (Auto) (0-1) % Puncture Site ABG pH (7.350-7.450) ABG pCO2 (35.0-42.0) mmHg ABG pO2 (75.0-100.0) mmHg ABG HCO3 (22.0-26.0) mmol/L ABG Total CO2 (21.0-25.0) mmol/L ABG O2 Saturation (95.0-98.0) % ABG O2 Content (15.0-23.0) %vol ABG Base Excess mm/L ABG Hemoglobin (12.0-16.0) g/dL ABG Oxyhemoglobin % ABG Carboxyhemoglobin (0.0-1.6) % ABG Methemoglobin % Omar Test O2 Delivery Device Sodium (140-148) mmol/L Potassium (3.6-5.2) mmol/L Chloride (100-108) mmol/L Carbon Dioxide (21-32) mmol/L Anion Gap (5.0-14.0) mmol/L BUN (7-18) mg/dL Creatinine (0.6-1.0) mg/dL Est Cr Clr Drug Dosing mL/min Estimated GFR (MDRD) (>60) Glucose (74-106) mg/dL Calcium (8.5-10.1) mg/dL Total Bilirubin (0.2-1.0) mg/dL AST (15-37) U/L ALT (12-78) U/L Alkaline Phosphatase (46-116) U/L Total Protein (6.4-8.2) g/dL Albumin (3.4-5.0) g/dL Globulin (2.3-3.5) g/dL Albumin/Globulin Ratio (1.2-2.2) Lipase 50 L (73-393) U/L Urine Color Yellow Urine Appearance Slightly cloudy Urine pH 5.0 (4.5-8.0) Ur Specific [place] 1.020 (1.008-1.030) Urine Protein Negative (NEGATIVE) mg/dL Urine Glucose (UA) >1000 H (NEGATIVE) mg/dL Urine Ketones 150 H (NEGATIVE) mg/dL Urine Occult Blood Large (NEGATIVE) Urine Nitrite Negative (NEGATIVE) Urine Bilirubin Negative (NEGATIVE) Urine Urobilinogen Normal (NORMAL) mg/dL Ur Leukocyte Esterase Small (NEGATIVE) Urine RBC 5-10 H (0-5) Urine WBC 20-30 H (0-5) Ur Epithelial Cells Moderate Amorphous Sediment Not seen Urine Bacteria Few Urine Mucus Not seen Urine Other Ketones Small H (NEGATIVE) Result Diagrams: 01/18/19 14:38 05/27/18 14:38 *Q Meaningful Use (ADM) - VTE Risk Assess *Q Each Risk Factor Represents 1 Point: None Total Score 1 Point Risk Factors: 0 Each Risk Factor Represents 2 Points: None Total Score 2 Point Risk Factors: 0 Each Risk Factor Represents 3 Points: Age 75 Years or Greater Total Score 3 Point Risk Factors: 3 Each Risk Factor Represents 5 Points: None Total Score 5 Point Risk Factors: 0 Venous Thromboembolism Risk Factor Score *Q: 3 - Problem List (1) Diabetic ketoacidosis SNOMED Code(s): 119139205, 370771857 ICD Code: E13.10 - OTH DIABETES MELLITUS WITH KETOACIDOSIS WITHOUT COMA Status: Acute Current Visit: Yes Qualifiers: Diabetes mellitus type: type 1 Diabetes mellitus complication detail: without coma Qualified Code(s): E10.10 - Type 1 diabetes mellitus with ketoacidosis without coma (2) Type 1 diabetes mellitus SNOMED Code(s): 18484862 ICD Code: E10.9 - TYPE 1 DIABETES MELLITUS WITHOUT COMPLICATIONS Status: Chronic Current Visit: No Qualifiers: Diabetes mellitus complication status: with unspecified complications Qualified Code(s): E10.8 - Type 1 diabetes mellitus with unspecified complications (3) HTN (hypertension) SNOMED Code(s): 00530026 ICD Code: I10 - ESSENTIAL (PRIMARY) HYPERTENSION Status: Chronic Current Visit: No Qualifiers: Hypertension type: secondary to endocrine disorders Qualified Code(s): I15.2 - Hypertension secondary to endocrine disorders (4) Seizure disorder SNOMED Code(s): 696780075 ICD Code: G40.909 - EPILEPSY, UNSP, NOT INTRACTABLE, WITHOUT STATUS EPILEPTICUS Status: Chronic Current Visit: No Problem List Initiated/Reviewed/Updated: Yes Orders Last 24hrs: Active Orders 24 hr Category Date Time Status Patient Status Manage Transfer [TRANSFER] Routine ADT 05/27/18 16:35 Ordered CULTURE URINE [RM] Urgent Lab 05/27/18 16:00 Received Insulin Regular, Human [HumuLIN R] 100 unit Med 05/27/18 16:00 Active Sodium Chloride 0.9% [Normal Saline] 99 ml IV TITRATE Sodium Chloride 0.9% [Normal Saline] 1,000 ml Med 05/27/18 16:00 Active IV ASDIRECTED Resuscitation Status Routine Resus Stat 05/27/18 16:37 Ordered Medication Orders Insulin Human Regular 100 unit (/ Sodium Chloride) 100 mls @ 4.76 mls/hr IV TITRATE HAN; Protocol Last Admin: 05/27/18 16:15 Dose: 0.1 units/kg/hr, 4.76 mls/hr Sodium Chloride (Normal Saline) 1,000 mls @ 250 mls/hr IV ASDIRECTED HAN Assessment/Plan Comment:: ASSESSMENT AND PLAN - Diabetic ketoacidosis - long-standing type 1 diabetes mellitus with insulin pump. No significant symptoms at this time. Laboratory studies revealed hyperglycemia, anion gap metabolic acidosis and mild leukocytosis. Vital signs are stable. Patient is mildly confused. I suspect this was related to either insulin pump malfunction or possibly improper needle placement or other equipment failure. There is no evidence for infection. -Discontinue insulin pump -Insulin drip -Labs every 4 hours until anion gap normalizes -Start with normal saline for IV fluids, may need to add D5 normal saline depending on how quickly the blood sugar comes down and how quickly the anion gap closes -Q1H blood sugars -Restart insulin pump once DKA resolves Essential hypertension - blood pressure acceptable at this time. -Continue losartan Hypothyroidism - no symptoms to suggest hyper or hypothyroid state at this time. Maintenance issues - - DVT prophylaxis - SCDs - GI prophylaxis - not indicated - Nutrition - diabetic diet - Mckeon catheter - not indicated CODE STATUS - full code Admission justification - This patient will be admitted for inpatient services and is medically appropriate meeting medical necessity for inpatient admission as outlined in my documentation. I reasonably expect the patient will require inpatient services that span a period time over 2 midnights. I reasonably expect this patient to be discharged or transferred within 96 hours [facility]. Disposition - I would anticipate discharge home after the hospital stay Primary care physician - Kobe Toure M.D.
[2018-05-27] MEDS ORDERED: Acetaminophen 325 MG Tab PO PRN (17:08)
[2018-05-27] MEDS ORDERED: Ondansetron 4 MG/2 ML SDV IV PRN (17:08)
[2018-05-27] MEDS ORDERED: Ondansetron 4 MG Tab.DIS PO PRN (17:08)
[2018-05-27] MEDS: Aspirin 81 MG Tab.Chew PO SCH (20:11)
[2018-05-27] MEDS: levETIRAcetam 250 MG Tab PO SCH (20:11)
[2018-05-27] MEDS: Losartan 50 MG Tab PO SCH (20:11)
[2018-05-27] MEDS ORDERED: Dextrose 5%-0.9% NaCl 1,000 ML IV SCH (22:15)
[2018-05-28] MEDS ORDERED: Dextrose 5%-0.9% NaCl with KCl 1,000 ML IV SCH (01:45)
[2018-05-28] MEDS: Levothyroxine 25 MCG, Levothyroxine 50 MCG PO SCH ×2 (07:29)
[2018-05-28] MEDS ORDERED: LEVOTHYROXINE SODIUM PO SCH (07:30)
[2018-05-28] MEDS: levETIRAcetam 250 MG Tab PO SCH ×2 (08:14→20:40)
[2018-05-28] MEDS: Losartan 50 MG Tab PO SCH ×2 (08:15→20:40)
[2018-05-28] MEDS: cefTRIAXone 1 GM in Sodium Chloride 0.9% 50 ML IV SCH (09:34)
--- NOTE | 2018-05-28 09:34 | PCM.PN ---
- General Info Date of Service: 05/28/18 Subjective Update: no acute events overnight. Blood sugar came down nicely and eventually the anion gap did normalize with fluids and insulin therapy. Blood sugars on the low side this morning. Patient says she feels fine and wants to go home. She does display some mild confusion. low-grade fevers overnight. Urine culture this morning is growing a gram-negative eleni and antibiotics will be initiated. Her Chris thinks that she is confused and would like additional monitoring and treatment here in the hospital. Functional Status: Reports: Pain Controlled, Tolerating Diet - Review of Systems General: Reports: Weakness. Denies: Fever Neurological: Reports: Confusion - Patient Data Vitals - Most Recent: Last Vital Signs Temp 37.7 C 05/28/18 05:15 Pulse 87 05/28/18 05:15 Resp 26 H 05/28/18 05:15 BP 127/53 L 05/28/18 08:15 Pulse Ox 98 05/28/18 05:15 Weight - Most Recent: 47.6 kg I&O - Last 24 Hours: Intake & Output 05/27/18 05/28/18 05/28/18 22:59 06:59 14:59 Intake Total 2583 Output Total 950 Balance -950 2583 Lab Results Last 24 Hours: Laboratory Results - last 24 hr 05/27/18 05/27/18 05/27/18 Range/Units 14:38 14:38 14:38 WBC 14.7 H (4.5-11.0) K/uL RBC 4.37 (3.30-5.50) M/uL Hgb 14.7 D (12.0-15.0) g/dL Hct 43.5 (36.0-48.0) % MCV 100 H (80-98) fL MCH 34 H (27-31) pg MCHC 34 (32-36) % Plt Count 293 (150-400) K/uL Neut % (Auto) 94 H (36-66) % Lymph % (Auto) 4 L (24-44) % [place] % (Auto) 2 (2-6) % Eos % (Auto) 0 L (2-4) % Baso % (Auto) 0 (0-1) % Puncture Site Rt.radial ABG pH 7.251 L (7.350-7.450) ABG pCO2 25.1 L (35.0-42.0) mmHg ABG pO2 96.7 (75.0-100.0) mmHg ABG HCO3 10.6 L (22.0-26.0) mmol/L ABG Total CO2 9.7 L (21.0-25.0) mmol/L ABG O2 Saturation 96.0 (95.0-98.0) % ABG O2 Content 19.0 (15.0-23.0) %vol ABG Base Excess -15.0 mm/L ABG Hemoglobin 14.2 (12.0-16.0) g/dL ABG Oxyhemoglobin 94.7 % ABG Carboxyhemoglobin 0.7 (0.0-1.6) % ABG Methemoglobin 0.7 % Omar Test Passed O2 Delivery Device Room air Sodium 129 L (140-148) mmol/L Potassium 5.0 (3.6-5.2) mmol/L Chloride 90 L (100-108) mmol/L Carbon Dioxide 14 L (21-32) mmol/L Anion Gap 30.0 H (5.0-14.0) mmol/L BUN 17 D (7-18) mg/dL Creatinine 1.2 H D (0.6-1.0) mg/dL Est Cr Clr Drug Dosing 26.86 mL/min Estimated GFR (MDRD) 43 L (>60) Glucose 518 H* (74-106) mg/dL Calcium 9.4 (8.5-10.1) mg/dL Total Bilirubin 1.1 H D (0.2-1.0) mg/dL AST 29 (15-37) U/L ALT 29 (12-78) U/L Alkaline Phosphatase 111 (46-116) U/L Total Protein 7.2 (6.4-8.2) g/dL Albumin 3.8 (3.4-5.0) g/dL Globulin 3.4 (2.3-3.5) g/dL Albumin/Globulin Ratio 1.1 L (1.2-2.2) Lipase (73-393) U/L Urine Color Urine Appearance Urine pH (4.5-8.0) Ur Specific Wheeler (1.008-1.030) Urine Protein (NEGATIVE) mg/dL Urine Glucose (UA) (NEGATIVE) mg/dL Urine Ketones (NEGATIVE) mg/dL Urine Occult Blood (NEGATIVE) Urine Nitrite (NEGATIVE) Urine Bilirubin (NEGATIVE) Urine Urobilinogen (NORMAL) mg/dL Ur Leukocyte Esterase (NEGATIVE) Urine RBC (0-5) Urine WBC (0-5) Ur Epithelial Cells Amorphous Sediment Urine Bacteria Urine Mucus Urine Other Ketones (NEGATIVE) 05/27/18 05/27/18 05/27/18 Range/Units 14:38 14:38 15:23 WBC (4.5-11.0) K/uL RBC (3.30-5.50) M/uL Hgb (12.0-15.0) g/dL Hct (36.0-48.0) % MCV (80-98) fL MCH (27-31) pg MCHC (32-36) % Plt Count (150-400) K/uL Neut % (Auto) (36-66) % Lymph % (Auto) (24-44) % [place] % (Auto) (2-6) % Eos % (Auto) (2-4) % Baso % (Auto) (0-1) % Puncture Site ABG pH (7.350-7.450) ABG pCO2 (35.0-42.0) mmHg ABG pO2 (75.0-100.0) mmHg ABG HCO3 (22.0-26.0) mmol/L ABG Total CO2 (21.0-25.0) mmol/L ABG O2 Saturation (95.0-98.0) % ABG O2 Content (15.0-23.0) %vol ABG Base Excess mm/L ABG Hemoglobin (12.0-16.0) g/dL ABG Oxyhemoglobin % ABG Carboxyhemoglobin (0.0-1.6) % ABG Methemoglobin % Omar Test O2 Delivery Device Sodium (140-148) mmol/L Potassium (3.6-5.2) mmol/L Chloride (100-108) mmol/L Carbon Dioxide (21-32) mmol/L Anion Gap (5.0-14.0) mmol/L BUN (7-18) mg/dL Creatinine (0.6-1.0) mg/dL Est Cr Clr Drug Dosing mL/min Estimated GFR (MDRD) (>60) Glucose (74-106) mg/dL Calcium (8.5-10.1) mg/dL Total Bilirubin (0.2-1.0) mg/dL AST (15-37) U/L ALT (12-78) U/L Alkaline Phosphatase (46-116) U/L Total Protein (6.4-8.2) g/dL Albumin (3.4-5.0) g/dL Globulin (2.3-3.5) g/dL Albumin/Globulin Ratio (1.2-2.2) Lipase 50 L (73-393) U/L Urine Color Yellow Urine Appearance Slightly cloudy Urine pH 5.0 (4.5-8.0) Ur Specific [place] 1.020 (1.008-1.030) Urine Protein Negative (NEGATIVE) mg/dL Urine Glucose (UA) >1000 H (NEGATIVE) mg/dL Urine Ketones 150 H (NEGATIVE) mg/dL Urine Occult Blood Large (NEGATIVE) Urine Nitrite Negative (NEGATIVE) Urine Bilirubin Negative (NEGATIVE) Urine Urobilinogen Normal (NORMAL) mg/dL Ur Leukocyte Esterase Small (NEGATIVE) Urine RBC 5-10 H (0-5) Urine WBC 20-30 H (0-5) Ur Epithelial Cells Moderate Amorphous Sediment Not seen Urine Bacteria Few Urine Mucus Not seen Urine Other Ketones Small H (NEGATIVE) 05/27/18 05/28/18 05/28/18 Range/Units 21:00 01:00 05:29 WBC 15.3 H (4.5-11.0) K/uL RBC 3.78 (3.30-5.50) M/uL Hgb 12.5 D (12.0-15.0) g/dL Hct 37.0 (36.0-48.0) % MCV 98 (80-98) fL MCH 33 H (27-31) pg MCHC 34 (32-36) % Plt Count 280 (150-400) K/uL Neut % (Auto) (36-66) % Lymph % (Auto) (24-44) % [place] % (Auto) (2-6) % Eos % (Auto) (2-4) % Baso % (Auto) (0-1) % Puncture Site ABG pH (7.350-7.450) ABG pCO2 (35.0-42.0) mmHg ABG pO2 (75.0-100.0) mmHg ABG HCO3 (22.0-26.0) mmol/L ABG Total CO2 (21.0-25.0) mmol/L ABG O2 Saturation (95.0-98.0) % ABG O2 Content (15.0-23.0) %vol ABG Base Excess mm/L ABG Hemoglobin (12.0-16.0) g/dL ABG Oxyhemoglobin % ABG Carboxyhemoglobin (0.0-1.6) % ABG Methemoglobin % Omar Test O2 Delivery Device Sodium 133 L 135 L (140-148) mmol/L Potassium 4.2 3.5 L (3.6-5.2) mmol/L Chloride 100 103 (100-108) mmol/L Carbon Dioxide 20 L 22 (21-32) mmol/L Anion Gap 17.2 H 13.5 (5.0-14.0) mmol/L BUN 16 14 (7-18) mg/dL Creatinine 0.9 0.9 (0.6-1.0) mg/dL Est Cr Clr Drug Dosing 35.81 35.81 mL/min Estimated GFR (MDRD) > 60 > 60 (>60) Glucose 235 H 139 H (74-106) mg/dL Calcium 8.5 8.4 L (8.5-10.1) mg/dL Total Bilirubin (0.2-1.0) mg/dL AST (15-37) U/L ALT (12-78) U/L Alkaline Phosphatase (46-116) U/L Total Protein (6.4-8.2) g/dL Albumin (3.4-5.0) g/dL Globulin (2.3-3.5) g/dL Albumin/Globulin Ratio (1.2-2.2) Lipase (73-393) U/L Urine Color Urine Appearance Urine pH (4.5-8.0) Ur Specific [place] (1.008-1.030) Urine Protein (NEGATIVE) mg/dL Urine Glucose (UA) (NEGATIVE) mg/dL Urine Ketones (NEGATIVE) mg/dL Urine Occult Blood (NEGATIVE) Urine Nitrite (NEGATIVE) Urine Bilirubin (NEGATIVE) Urine Urobilinogen (NORMAL) mg/dL Ur Leukocyte Esterase (NEGATIVE) Urine RBC (0-5) Urine WBC (0-5) Ur Epithelial Cells Amorphous Sediment Urine Bacteria Urine Mucus Urine Other Ketones (NEGATIVE) 05/28/18 Range/Units 05:29 WBC (4.5-11.0) K/uL RBC (3.30-5.50) M/uL Hgb (12.0-15.0) g/dL Hct (36.0-48.0) % MCV (80-98) fL MCH (27-31) pg MCHC (32-36) % Plt Count (150-400) K/uL Neut % (Auto) (36-66) % Lymph % (Auto) (24-44) % [place] % (Auto) (2-6) % Eos % (Auto) (2-4) % Baso % (Auto) (0-1) % Puncture Site ABG pH (7.350-7.450) ABG pCO2 (35.0-42.0) mmHg ABG pO2 (75.0-100.0) mmHg ABG HCO3 (22.0-26.0) mmol/L ABG Total CO2 (21.0-25.0) mmol/L ABG O2 Saturation (95.0-98.0) % ABG O2 Content (15.0-23.0) %vol ABG Base Excess mm/L ABG Hemoglobin (12.0-16.0) g/dL ABG Oxyhemoglobin % ABG Carboxyhemoglobin (0.0-1.6) % ABG Methemoglobin % Omar Test O2 Delivery Device Sodium 134 L (140-148) mmol/L Potassium 4.0 (3.6-5.2) mmol/L Chloride 102 (100-108) mmol/L Carbon Dioxide 20 L (21-32) mmol/L Anion Gap 16.0 H (5.0-14.0) mmol/L BUN 13 (7-18) mg/dL Creatinine 0.7 (0.6-1.0) mg/dL Est Cr Clr Drug Dosing 46.04 mL/min Estimated GFR (MDRD) > 60 (>60) Glucose 211 H (74-106) mg/dL Calcium 8.6 (8.5-10.1) mg/dL Total Bilirubin (0.2-1.0) mg/dL AST (15-37) U/L ALT (12-78) U/L Alkaline Phosphatase (46-116) U/L Total Protein (6.4-8.2) g/dL Albumin (3.4-5.0) g/dL Globulin (2.3-3.5) g/dL Albumin/Globulin Ratio (1.2-2.2) Lipase (73-393) U/L Urine Color Urine Appearance Urine pH (4.5-8.0) Ur Specific Wheeler (1.008-1.030) Urine Protein (NEGATIVE) mg/dL Urine Glucose (UA) (NEGATIVE) mg/dL Urine Ketones (NEGATIVE) mg/dL Urine Occult Blood (NEGATIVE) Urine Nitrite (NEGATIVE) Urine Bilirubin (NEGATIVE) Urine Urobilinogen (NORMAL) mg/dL Ur Leukocyte Esterase (NEGATIVE) Urine RBC (0-5) Urine WBC (0-5) Ur Epithelial Cells Amorphous Sediment Urine Bacteria Urine Mucus Urine Other Ketones (NEGATIVE) Adelfo Results Last 24 Hours: Microbiology 05/27/18 16:00 Urine Culture - Preliminary Urine, Clean Catch Med Orders - Current: Current Medications Acetaminophen (Tylenol) 650 mg PO Q4H PRN PRN Reason: Pain (Mild 1-3)/fever Aspirin (Aspirin) 81 mg PO BEDTIME [facility] Last Admin: 05/27/18 20:11 Dose: 81 mg Ceftriaxone Sodium 1 gm/ (Sodium Chloride) 50 mls @ 100 mls/hr IV Q24H [facility] Levetiracetam (Keppra) 500 mg PO BID [facility] Last Admin: 05/28/18 08:14 Dose: 500 mg Levothyroxine Sodium 25 mcg/ (Levothyroxine Sodium 50 mcg) 75 mcg PO DAILY@ 0730 [facility] Last Admin: 05/28/18 07:29 Dose: 75 mcg Losartan Potassium (Cozaar) 50 mg PO BID [facility] Last Admin: 05/28/18 08:15 Dose: 50 mg Ondansetron HCl (Zofran Odt) 4 mg PO Q6H PRN PRN Reason: Nausea able to take PO Ondansetron HCl (Zofran) 4 mg IV Q6H PRN PRN Reason: Nausea/Vomiting Discontinued Medications Sodium Chloride (Normal Saline) 1,000 mls @ 1,000 mls/hr IV .BOLUS ONE Stop: 05/27/18 15:42 Last Admin: 05/27/18 15:32 Dose: 1,000 mls/hr Insulin Human Regular 100 unit (/ Sodium Chloride) 100 mls @ 4.76 mls/hr IV TITRATE [facility]; Protocol Last Titration: 05/27/18 23:13 Dose: 0.18 units/kg/hr, 8.7 mls/hr Sodium Chloride (Normal Saline) 1,000 mls @ 250 mls/hr IV ASDIRECTED HAN Sodium Chloride (Normal Saline) 1,000 mls @ 150 mls/hr IV ASDIRECTED HAN Dextrose/Sodium Chloride (Dextrose 5%-Normal Saline) 1,000 mls @ 100 mls/hr IV ASDIRECTED HAN Last Admin: 05/27/18 22:18 Dose: 100 mls/hr Insulin Human Regular 100 unit (/ Sodium Chloride) 100 mls @ 6 mls/hr IV NOW STA; Protocol Stop: 05/28/18 18:08 Last Titration: 05/28/18 09:07 Dose: 0 units/hr, 0 mls/hr Potassium Chloride/Dextrose/Sod Cl (D5 Ns With 20 Meq Kcl) 1,000 mls @ 100 mls/ hr IV ASDIRECTED HAN Last Admin: 05/28/18 01:42 Dose: 100 mls/hr - Exam Quality Assessment: No: Supplemental Oxygen General: Alert, Oriented, Cooperative, No Acute Distress Lungs: Clear to Auscultation, Normal Respiratory Effort Cardiovascular: Regular Rate, Regular Rhythm GI/Abdominal Exam: Soft, Non-Tender, No Distention Extremities: No Pedal Edema. No: Increased Warmth Skin: Warm, Dry Psy/Mental Status: Alert, Normal Affect - Problem List & Annotations (1) Diabetic ketoacidosis SNOMED Code(s): 367838909, 925563886 Code(s): E13.10 - OTH DIABETES MELLITUS WITH KETOACIDOSIS WITHOUT COMA Status: Acute Current Visit: Yes Qualifiers: Diabetes mellitus type: type 1 Diabetes mellitus complication detail: without coma Qualified Code(s): E10.10 - Type 1 diabetes mellitus with ketoacidosis without coma (2) Type 1 diabetes mellitus SNOMED Code(s): 22546441 Code(s): E10.9 - TYPE 1 DIABETES MELLITUS WITHOUT COMPLICATIONS Status: Chronic Current Visit: No Qualifiers: Diabetes mellitus complication status: with unspecified complications Qualified Code(s): E10.8 - Type 1 diabetes mellitus with unspecified complications (3) HTN (hypertension) SNOMED Code(s): 25075538 Code(s): I10 - ESSENTIAL (PRIMARY) HYPERTENSION Status: Chronic Current Visit: No Qualifiers: Hypertension type: secondary to endocrine disorders Qualified Code(s): I15.2 - Hypertension secondary to endocrine disorders (4) Seizure disorder SNOMED Code(s): 239532877 Code(s): G40.909 - EPILEPSY, UNSP, NOT INTRACTABLE, WITHOUT STATUS EPILEPTICUS Status: Chronic Current Visit: No (5) Acute cystitis SNOMED Code(s): 06182379 Code(s): N30.00 - ACUTE CYSTITIS WITHOUT HEMATURIA Status: Acute Current Visit: Yes Qualifiers: Hematuria presence: without hematuria Qualified Code(s): N30.00 - Acute cystitis without hematuria - Problem List Review Problem List Initiated/Reviewed/Updated: Yes - My Orders Last 24 Hours: My Active Orders 05/27/18 16:37 Resuscitation Status Routine 05/27/18 17:08 Patient Status [ADT] Routine Antiembolic Devices [RC] .Routine Cardiac Monitoring [RC] Q6H Communication Order [RC] ASDIRECTED Diabetes Education [RC] Click to Edit Intake and Output [RC] QSHIFT Notify Provider Vital Signs [RC] ASDIRECTED Notify Provider [RC] PRN Up With Assistance [RC] ASDIRECTED VTE/DVT Education [RC] Per Unit Routine Vital Signs [RC] Q4H Acetaminophen [Tylenol] 650 mg PO Q4H PRN Ondansetron [Zofran ODT] 4 mg PO Q6H PRN Ondansetron [Zofran] 4 mg IV Q6H PRN Sequential Compression Device [OM.PC] Per Unit Routine 05/27/18 21:00 Aspirin 81 mg PO BEDTIME Losartan [Cozaar] 50 mg PO BID levETIRAcetam [Keppra] 500 mg PO BID 05/27/18 Dinner Consistent Carbohydrate Diet [DIET] 05/28/18 01:00 Communication Order [RC] ASDIRECTED 05/28/18 07:30 Levothyroxine [Synthroid] 75 mcg PO DAILY@0730 05/28/18 09:00 cefTRIAXone [Rocephin] 1 gm Sodium Chloride 0.9% [Normal Saline] 50 ml IV Q24H 05/28/18 09:31 Blood Glucose Check, Bedside [RC] QIDACANDBED Communication Order [RC] PRN Communication Order [RC] PRN 05/28/18 09:45 Insulin Glarg,Human.Rec.Analog [LantUS Solostar] 15 units SUBCUT DAILY 05/28/18 11:00 Insulin Lispro [HumaLOG] See Protocol SUBCUT QIDACANDBED 05/28/18 12:00 Insulin Lispro [HumaLOG] 1 unit SUBCUT TIDMEALS 05/29/18 05:00 BASIC METABOLIC PANEL,BMP [CHEM] Timed CBC W/O DIFF,HEMOGRAM [HEME] Timed (1) - Plan Plan:: ASSESSMENT AND PLAN - Diabetic ketoacidosis - long-standing type 1 diabetes mellitus with insulin pump. DKA has resolved and we are transitioning to subcutaneous insulin at this time. -restart insulin pump tomorrow -discontinue insulin drip -Lantus 15 units 1 this morning -mealtime insulin at 1 unit per carb choice -low-dose sliding scale insulin -4 times a day Accu-Cheks Acute cystitis - urine culture growing a gram-negative eleni. Identification pending. Urinalysis was not strongly suggestive of infection yesterday and patient did not have significant symptoms but with the large quantity of bacteria growing I will empirically start her on antibiotics. -Ceftriaxone -Follow-up culture Essential hypertension - blood pressure acceptable at this time. -Continue losartan Hypothyroidism - no symptoms to suggest hyper or hypothyroid state at this time. Maintenance issues - - DVT prophylaxis - SCDs - GI prophylaxis - not indicated - Nutrition - diabetic diet Disposition - I would anticipate discharge home after the hospital stay Primary care physician - Kobe Toure M.D.
[2018-05-28] MEDS ORDERED: Insulin Glargine,Human Rec. Analog 100 Units/ML 3 ML Pen SUBCUT SCH (09:45)
[2018-05-28] MEDS: Insulin Lispro 100 Unit/ML 3 ML KwikPen SUBCUT SCH ×6 (11:03→20:34)
[2018-05-28] MEDS: Aspirin 81 MG Tab.Chew PO SCH (20:39)
[2018-05-29] MEDS: Levothyroxine 25 MCG, Levothyroxine 50 MCG PO SCH ×2 (07:34)
[2018-05-29] MEDS: Insulin Lispro 100 Unit/ML 3 ML KwikPen SUBCUT SCH ×3 (07:49→09:51)
[2018-05-29] MEDS: Losartan 50 MG Tab PO SCH (09:00)
[2018-05-29] MEDS: levETIRAcetam 250 MG Tab PO SCH (09:02)
[2018-05-29] MEDS: cefTRIAXone 1 GM in Sodium Chloride 0.9% 50 ML IV SCH (09:03)
--- NOTE | 2018-05-29 10:05 | PCM.DCSUM1 ---
Discharge Summary - Hospital Course Brief History: 82-year-old female with Type 1 diabetes mellitus who presented with confusion, weakness and hyperglycemia. Workup in the emergency room revealed diabetic ketoacidosis and possible urinary tract infection. She was admitted for further management. Diagnosis: Stroke: No - Discharge Data Discharge Date: 05/29/18 Discharge Disposition: Home, Self-Care 01 Condition: Good - Discharge Diagnosis/Problem(s) (1) Diabetic ketoacidosis SNOMED Code(s): 514519274, 634571042 ICD Code: E13.10 - OTH DIABETES MELLITUS WITH KETOACIDOSIS WITHOUT COMA Status: Acute Qualifiers: Diabetes mellitus type: type 1 Diabetes mellitus complication detail: without coma Qualified Code(s): E10.10 - Type 1 diabetes mellitus with ketoacidosis without coma (2) Type 1 diabetes mellitus SNOMED Code(s): 32274891 ICD Code: E10.9 - TYPE 1 DIABETES MELLITUS WITHOUT COMPLICATIONS Status: Chronic Qualifiers: Diabetes mellitus complication status: with unspecified complications Qualified Code(s): E10.8 - Type 1 diabetes mellitus with unspecified complications (3) HTN (hypertension) SNOMED Code(s): 66144230 ICD Code: I10 - ESSENTIAL (PRIMARY) HYPERTENSION Status: Chronic Qualifiers: Hypertension type: secondary to endocrine disorders Qualified Code(s): I15.2 - Hypertension secondary to endocrine disorders (4) Seizure disorder SNOMED Code(s): 445516055 ICD Code: G40.909 - EPILEPSY, UNSP, NOT INTRACTABLE, WITHOUT STATUS EPILEPTICUS Status: Chronic (5) Acute cystitis SNOMED Code(s): 02116409 ICD Code: N30.00 - ACUTE CYSTITIS WITHOUT HEMATURIA Status: Acute Qualifiers: Hematuria presence: without hematuria Qualified Code(s): N30.00 - Acute cystitis without hematuria - Patient Summary/Data Hospital Course: Gaye presented to the emergency room with hyperglycemia, weakness and lethargy as well as mild confusion. Workup in the emergency room was consistent with diabetic ketoacidosis as well as a possible urinary tract infection. She was given IV insulin in the emergency room and started on an insulin drip. She was admitted to the intensive care unit for further management. Antibiotics were not initiated for the possible infection because there were no symptoms and no fevers. Throughout the night following admission serial laboratory studies were monitored. Her anion gap slowly improved as her insulin drip and IV fluids were continued. By the morning after admission her anion gap was normal and her blood sugar was on the low side of normal. At this point we elected to transition her to subcutaneous insulin with mealtime and sliding-scale insulin because she did still have some confusion. Her urine culture was growing a gram- negative eleni at this point with significant quantity so ceftriaxone was empirically started. Throughout the day she had moderate hyperglycemia with the subcutaneous and mealtime insulin. She was covered some with sliding-scale insulin. Overnight the second night there were no significant issues other than some mild confusion. Vital signs were stable and blood sugars remained mild to moderately elevated. By the second morning of admission/day of discharge the confusion had improved a fair amount. Her urine culture returned with an ESBL Escherichia coli and antibiotics were transitioned to meropenem for one dose and then to nitrofurantoin at the time of discharge. Blood sugars have stabilized and her insulin pump has been restarted. Vital signs have remained stable. Strength is acceptable. Oral intake is acceptable at this time. She has not had any fevers. She feels well enough to go home and her is comfortable taking her home at this point. She will receive a prescription for 5 days of nitrofurantoin. She should follow-up in a few days if symptoms do not continue to get better or if they get worse. - Patient Instructions Diet: Diabetic Diet Activity: As Tolerated Showering/Bathing: May Shower Notify Provider of: Fever, Increased Pain, Nausea and/or Vomiting Other/Special Instructions: 1. You were in the hospital for management of diabetic ketoacidosis caused by a combination of a poorly functioning insulin pump as well as a bladder infection. The ketoacidosis has resolved with IV fluids and IV insulin therapy. The insulin pump has been reinitiated. Regarding the urinary tract infection, your urine culture grew out Escherichia coli. I recommend 5 additional days of antibiotic therapy with nitrofurantoin. You should take 100 mg twice daily for the next 5 days. You're next dose is due tonight. 2. Continue your other home medications as previously prescribed. 3. Follow up if your symptoms do not continue to get better or if they get worse. 4. Seek medical attention if you have fever greater than 101, severe abdominal pain, persistent vomiting or severe diarrhea. - Discharge Plan *PRESCRIPTION DRUG MONITORING PROGRAM REVIEWED*: Not Applicable *COPY OF PRESCRIPTION DRUG MONITORING REPORT IN PATIENT LESTER: Not Applicable Prescriptions/Med Rec: Nitrofurantoin [place]/Macrocryst [Nitrofurantoin [place]-MCR] 100 mg PO BID #10 cap Home Medications: Home Meds Aspirin [Kate Chewable Aspirin] 81 mg PO BEDTIME 10/26/13 [History] Insulin Aspart [NovoLOG] 1 unit SUBCUT ASDIRECTED 10/26/13 [History] Levothyroxine Sodium 1 tab PO ACBREAKFAST 10/26/13 [History] Losartan [Cozaar] 1 tab PO BID 10/26/13 [History] levETIRAcetam [Keppra] 500 mg PO BID 10/26/13 [History] Nitrofurantoin [place]/Macrocryst [Nitrofurantoin [place]-MCR] 100 mg PO BID #10 cap 05/29/18 [Rx] Oxygen Therapy Mode: Room Air Patient Handouts: Nitrofurantoin tablets or capsules, Urinary Tract Infection, Adult Referrals: Kobe Horton, [employer] [Primary Care Provider] - (f/u in 3-5 days if not improving ) - Discharge Summary/Plan Comment DC Time >30 min.: No - Patient Data Vitals - Most Recent: Last Vital Signs Temp 37.1 C 05/29/18 08:00 Pulse 88 05/29/18 08:00 Resp 14 05/29/18 08:00 BP 149/57 H 05/29/18 09:00 Pulse Ox 96 05/29/18 08:00 Weight - Most Recent: 47.6 kg I&O - Last 24 hours: Intake & Output 05/28/18 05/29/18 05/29/18 22:59 06:59 14:59 Intake Total 1140 360 Balance 1140 360 SARA Results - Last 24 hrs: Microbiology 05/27/18 16:00 Urine Culture - Final Urine, Clean Catch (Esbl) Escherichia Coli Med Orders - Current: Current Medications Acetaminophen (Tylenol) 650 mg PO Q4H PRN PRN Reason: Pain (Mild 1-3)/fever Last Admin: 05/28/18 20:43 Dose: 650 mg Aspirin (Aspirin) 81 mg PO BEDTIME [facility] Last Admin: 05/28/18 20:39 Dose: 81 mg Insulin Human Lispro (Humalog) 0 unit SUBCUT TIDMEALS [facility]AN Last Admin: 05/29/18 08:41 Dose: 4 units Insulin Human Lispro (Humalog) 0 unit SUBCUT QIDACANDBED [facility]; Protocol Last Admin: 05/29/18 09:51 Dose: 4 units Levetiracetam (Keppra) 500 mg PO BID [facility] Last Admin: 05/29/18 09:02 Dose: 500 mg Levothyroxine Sodium 25 mcg/ (Levothyroxine Sodium 50 mcg) 75 mcg PO DAILY@ 0730 [facility] Last Admin: 05/29/18 07:34 Dose: 75 mcg Losartan Potassium (Cozaar) 50 mg PO BID [facility] Last Admin: 05/29/18 09:00 Dose: 50 mg Ondansetron HCl (Zofran Odt) 4 mg PO Q6H PRN PRN Reason: Nausea able to take PO Ondansetron HCl (Zofran) 4 mg IV Q6H PRN PRN Reason: Nausea/Vomiting Discontinued Medications Sodium Chloride (Normal Saline) 1,000 mls @ 1,000 mls/hr IV .BOLUS ONE Stop: 05/27/18 15:42 Last Admin: 05/27/18 15:32 Dose: 1,000 mls/hr Insulin Human Regular 100 unit (/ Sodium Chloride) 100 mls @ 4.76 mls/hr IV TITRATE [facility]; Protocol Last Titration: 05/27/18 23:13 Dose: 0.18 units/kg/hr, 8.7 mls/hr Sodium Chloride (Normal Saline) 1,000 mls @ 250 mls/hr IV ASDIRECTED HAN Sodium Chloride (Normal Saline) 1,000 mls @ 150 mls/hr IV ASDIRECTED HAN Dextrose/Sodium Chloride (Dextrose 5%-Normal Saline) 1,000 mls @ 100 mls/hr IV ASDIRECTED HAN Last Admin: 05/27/18 22:18 Dose: 100 mls/hr Insulin Human Regular 100 unit (/ Sodium Chloride) 100 mls @ 6 mls/hr IV NOW STA; Protocol Stop: 05/28/18 18:08 Last Titration: 05/28/18 09:07 Dose: 0 units/hr, 0 mls/hr Potassium Chloride/Dextrose/Sod Cl (D5 Ns With 20 Meq Kcl) 1,000 mls @ 100 mls/ hr IV ASDIRECTED [facility] Last Admin: 05/28/18 01:42 Dose: 100 mls/hr Ceftriaxone Sodium 1 gm/ (Sodium Chloride) 50 mls @ 100 mls/hr IV Q24H [facility] Last Admin: 05/29/18 09:03 Dose: Not Given Meropenem 1 gm/ Sodium (Chloride) 50 mls @ 100 mls/hr IV ONETIME ONE Stop: 05/29/18 07:59 Last Admin: 05/29/18 07:34 Dose: 100 mls/hr Insulin Glargine (Lantus Solostar) 15 units SUBCUT DAILY [facility] Stop: 05/28/18 09:46 Last Admin: 05/28/18 09:56 Dose: 15 units - Exam Quality Assessment: Denies: Supplemental Oxygen General: Reports: Alert, Oriented, Cooperative, No Acute Distress Lungs: Reports: Normal Respiratory Effort Cardiovascular: Reports: Regular Rate, Regular Rhythm GI/Abdominal Exam: Soft, No Distention Extremities: No Pedal Edema Psy/Mental Status: Reports: Alert, Normal Affect
== END 2018-05-29 11:44 | disposition home or self-care (01) | DRG 919 ==
LOC: JP.ED 13:45 → JP.ICU 16:35
PROVIDERS: ADMIT Internal Medicine; ATTEND Internal Medicine
DX: T85.614A Breakdown (mechanical) of insulin pump, initial encounter (principal); E10.10 Type 1 diabetes mellitus with ketoacidosis without coma; N39.0 Urinary tract infection, site not specified; Z79.4 Long term (current) use of insulin; Z96.41 Presence of insulin pump (external) (internal); I15.2 Hypertension secondary to endocrine disorders; G40.909 Epilepsy, unspecified, not intractable, without status epilepticus; N30.00 Acute cystitis without hematuria; E03.9 Hypothyroidism, unspecified; B96.20 Unspecified Escherichia coli [E. coli] as the cause of diseases classified elsewhere; E78.5 Hyperlipidemia, unspecified; M19.90 Unspecified osteoarthritis, unspecified site; H54.7 Unspecified visual loss; Z79.82 Long term (current) use of aspirin; Z88.1 Allergy status to other antibiotic agents; Z88.0 Allergy status to penicillin; Z88.2 Allergy status to sulfonamides; R41.0 Disorientation, unspecified
CPT/HCPCS: 36415; 36600; 80053; 81001; 82009; 82803; 83690; 85025; 87086; 87088; 87186; J7030; 80048; 82962; 85027; 96360; 99285-25; A9270-GY; J0696; J1815; J1815-GY; J2185; J3480; J7050

== ENCOUNTER 2018-05-30 13:14 | Inpatient (IN) | payer MEDICARE, BC ==
[2018-05-30] MEDS ORDERED: Insulin Regular, Human 100 Units/ML 3 ML Vial SUBCUT ONE (15:34)
--- NOTE | 2018-05-30 16:07 | EDM.PDOC ---
ED HPI GENERAL MEDICAL PROBLEM - General Chief Complaint: Diabetic Complaint Stated Complaint: BLOOD SUGARS ARE HIGH Time Seen by Provider: 05/30/18 14:32 Source of Information: Reports: Patient, Old Records History Limitations: Reports: No Limitations - History of Present Illness INITIAL COMMENTS - FREE TEXT/NARRATIVE: This patient was just discharged from the hospital yesterday after treatment for diabetic ketoacidosis. She hasn't insulins pop installed it's a background of about 12 units daily. This morning her sugars have been in the 400s besides the instrument pop she's also received 26 unit doses of insulins at 11:30 AM and 1 PM. Sugars continues to climb. She is eating and drinking okay in fact feels very thirsty and just can't get enough water. She was found to have a urinary tract infection she was treated with some ceftriaxone followed by Macrodantin. - Related Data Allergies Allergy/AdvReac Type Severity Reaction Status Date / Time Penicillins Allergy Rash Verified 05/30/18 14:03 Sulfa (Sulfonamide Allergy Joint Pain Verified 05/30/18 14:03 Antibiotics) erythromycin base AdvReac Nausea Verified 05/30/18 14:03 [Erythromycin Base] Home Meds: Home Meds Aspirin [Kate Chewable Aspirin] 81 mg PO BEDTIME 10/26/13 [History] Insulin Aspart [NovoLOG] 1 unit SUBCUT ASDIRECTED 10/26/13 [History] Levothyroxine Sodium 1 tab PO ACBREAKFAST 10/26/13 [History] Losartan [Cozaar] 1 tab PO BID 10/26/13 [History] levETIRAcetam [Keppra] 500 mg PO BID 10/26/13 [History] Nitrofurantoin [place]/Macrocryst [Nitrofurantoin [place]-MCR] 100 mg PO BID #10 cap 05/29/18 [Rx] Past Medical History HEENT History: Reports: Impaired Vision Cardiovascular History: Reports: High Cholesterol, Hypertension Respiratory History: Reports: None Gastrointestinal History: Reports: None Genitourinary History: Reports: None [employer]ER [employer] SPECIALIST History: Reports: Musculoskeletal History: Reports: Arthritis, Fracture Other Musculoskeletal History: finger Neurological History: Reports: Seizure Psychiatric History: Reports: Depression Endocrine/Metabolic History: Reports: Diabetes, Type I, Hypothyroidism Hematologic History: Reports: None Immunologic History: Reports: None Oncologic (Cancer) History: Reports: None Dermatologic History: Reports: None - Infectious Disease History Infectious Disease History: Reports: Chicken Pox, Measles, Mumps - Past Surgical History HEENT Surgical History: Reports: None Cardiovascular Surgical History: Reports: None Respiratory Surgical History: Reports: None GI Surgical History: Reports: Appendectomy, Cholecystectomy, Colonoscopy Female Surgical History: Reports: None, Tubal Ligation Endocrine Surgical History: Reports: None Neurological Surgical History: Reports: None Musculoskeletal Surgical History: Reports: None Dermatological Surgical History: Reports: None Social & Family History - Family History Family Medical History: Noncontributory - Tobacco Use Smoking Status *Q: Former Smoker Years of Tobacco use: 40 Packs/Tins Daily: 1 Used Tobacco, but Quit: Yes Month/Year Tobacco Last Used: 30 YEARS AGO Second Hand Smoke Exposure: No - Caffeine Use Caffeine Use: Reports: Coffee - Alcohol Use Days Per Week of Alcohol Use: 7 Number of Drinks Per Day: 1 Total Drinks Per Week: 7 Date of Last Drink: 06/02/18 Time of Last Drink: 18:00 - Recreational Drug Use Recreational Drug Use: No ED ROS GENERAL - Review of Systems Review Of Systems: See Below Constitutional: Reports: No Symptoms (She says generally she feels pretty good) HEENT: Reports: No Symptoms Respiratory: Reports: No Symptoms Cardiovascular: Reports: No Symptoms Endocrine: Reports: High Glucose, Polydypsia GI/Abdominal: Reports: No Symptoms : Reports: No Symptoms Musculoskeletal: Reports: No Symptoms Skin: Reports: No Symptoms Neurological: Reports: No Symptoms Psychiatric: Reports: No Symptoms Hematologic/Lymphatic: Reports: No Symptoms ED EXAM GENERAL NO PERIP PULSE - Physical Exam Exam: See Below Exam Limited By: No Limitations General Appearance: Alert, WD/WN, No Apparent Distress Eye Exam: Bilateral Eye: Normal Inspection Nose: Normal Inspection Throat/Mouth: Normal Oropharynx Head: Atraumatic Neck: Normal Inspection Respiratory/Chest: Lungs Clear Cardiovascular: Normal Peripheral Pulses, Regular Rate, Rhythm GI/Abdominal: Soft, Non-Tender Back Exam: Normal Inspection Extremities: Normal Inspection Neurological: Alert, Oriented Psychiatric: Normal Affect Skin Exam: Warm, Dry Course - Vital Signs Last Recorded V/S: Last Vital Signs Temp 36.9 C 05/30/18 15:46 Pulse 89 05/30/18 15:46 Resp 16 05/30/18 15:46 BP 98/58 L 05/30/18 15:46 Pulse Ox 97 05/30/18 15:46 - Orders/Labs/Meds Labs: Laboratory Tests 05/30/18 05/30/18 05/30/18 Range/Units 15:05 15:13 15:13 WBC 14.6 H (4.5-11.0) K/uL RBC 4.37 (3.30-5.50) M/uL Hgb 14.6 D (12.0-15.0) g/dL Hct 43.1 (36.0-48.0) % MCV 99 H (80-98) fL MCH 33 H (27-31) pg MCHC 34 (32-36) % Plt Count 279 (150-400) K/uL Neut % (Auto) 95 H (36-66) % Lymph % (Auto) 1 L (24-44) % [place] % (Auto) 3 (2-6) % Eos % (Auto) 0 L (2-4) % Baso % (Auto) 0 (0-1) % ABG Hemoglobin 14.8 (12.0-16.0) g/dL ABG Oxyhemoglobin 70.7 % ABG Carboxyhemoglobin 3.1 H (0.0-1.6) % ABG Methemoglobin 0.6 % VBG pH 7.292 L (7.350-7.450) VBG pCO2 30.3 mm/Hg VBG pO2 42.0 mm/Hg VBG HCO3 14.2 mmol/L VBG Total CO2 12.8 mmol/L VBG O2 Saturation 73.4 VBG O2 Content 14.7 %vol VBG Base Excess -10.9 mm/L O2 Delivery Device Room air Sodium (140-148) mmol/L Potassium (3.6-5.2) mmol/L Chloride (100-108) mmol/L Carbon Dioxide (21-32) mmol/L Anion Gap (5.0-14.0) mmol/L BUN (7-18) mg/dL Creatinine (0.6-1.0) mg/dL Est Cr Clr Drug Dosing mL/min Estimated GFR (MDRD) (>60) Glucose (74-106) mg/dL Calcium (8.5-10.1) mg/dL Total Bilirubin (0.2-1.0) mg/dL AST (15-37) U/L ALT (12-78) U/L Alkaline Phosphatase (46-116) U/L Total Protein (6.4-8.2) g/dL Albumin (3.4-5.0) g/dL Globulin (2.3-3.5) g/dL Albumin/Globulin Ratio (1.2-2.2) Ketones Moderate H (NEGATIVE) 05/30/18 Range/Units 15:13 WBC (4.5-11.0) K/uL RBC (3.30-5.50) M/uL Hgb (12.0-15.0) g/dL Hct (36.0-48.0) % MCV (80-98) fL MCH (27-31) pg MCHC (32-36) % Plt Count (150-400) K/uL Neut % (Auto) (36-66) % Lymph % (Auto) (24-44) % [place] % (Auto) (2-6) % Eos % (Auto) (2-4) % Baso % (Auto) (0-1) % ABG Hemoglobin (12.0-16.0) g/dL ABG Oxyhemoglobin % ABG Carboxyhemoglobin (0.0-1.6) % ABG Methemoglobin % VBG pH (7.350-7.450) VBG pCO2 mm/Hg VBG pO2 mm/Hg VBG HCO3 mmol/L VBG Total CO2 mmol/L VBG O2 Saturation VBG O2 Content %vol VBG Base Excess mm/L O2 Delivery Device Sodium 126 L (140-148) mmol/L Potassium 4.1 (3.6-5.2) mmol/L Chloride 88 L (100-108) mmol/L Carbon Dioxide 17 L (21-32) mmol/L Anion Gap 25.1 H (5.0-14.0) mmol/L BUN 17 (7-18) mg/dL Creatinine 1.3 H D (0.6-1.0) mg/dL Est Cr Clr Drug Dosing 24.79 mL/min Estimated GFR (MDRD) 39 L (>60) Glucose 480 H* (74-106) mg/dL Calcium 9.3 (8.5-10.1) mg/dL Total Bilirubin 1.1 H (0.2-1.0) mg/dL AST 28 (15-37) U/L ALT 35 (12-78) U/L Alkaline Phosphatase 109 (46-116) U/L Total Protein 7.2 (6.4-8.2) g/dL Albumin 3.6 (3.4-5.0) g/dL Globulin 3.6 H (2.3-3.5) g/dL Albumin/Globulin Ratio 1.0 L (1.2-2.2) Ketones (NEGATIVE) Meds: Medications Discontinued Medications Generic Name Dose Route Start Last Admin Trade Name Alverto PRN Reason Stop Dose Admin Insulin Human Regular 12 unit 05/30/18 15:34 Humulin R SUBCUT 05/30/18 15:35 ONETIME ONE - Re-Assessments/Exams Free Text/Narrative Re-Assessment/Exam: 05/30/18 16:06 Labs were reviewed on this patient. She has hyperglycemia she's just a little bit acidotic and has moderate serum ketones. Spoke with Dr. patrick and and he will admit her and manage her on IV and swollen. Departure - Departure Time of Disposition: 16:06 Disposition: Admitted As Inpatient 68 Condition: Fair Clinical Impression: Diabetic ketoacidosis - Discharge Information Referrals: Kobe Horton NP [Primary Care Provider] -
[2018-05-30] MEDS ORDERED: Sodium Chloride 0.9% 1,000 ML IV SCH (17:00)
[2018-05-30] MEDS ORDERED: Enoxaparin 40 MG/0.4 ML Syringe SUBCUT SCH (17:10)
[2018-05-30] MEDS ORDERED: Sodium Phosphate 60 MMOLE in Sodium Chloride 0.9% 250 ML IV PRN (17:10)
[2018-05-30] MEDS ORDERED: Sodium Chloride 0.9% 2,000 ML IV PRN (17:10)
[2018-05-30] MEDS ORDERED: Potassium Chloride 10% 20 MEQ/15 ML Soln 15 ML UD Cup PO PRN ×3 (17:10)
[2018-05-30] MEDS ORDERED: Ondansetron 4 MG/2 ML SDV IV PRN (17:10)
[2018-05-30] MEDS ORDERED: 50% Dextrose in Water 50 ML Syringe IVPUSH PRN (17:10)
[2018-05-30] MEDS ORDERED: Acetaminophen 325 MG Tab PO PRN (17:10)
[2018-05-30] MEDS ORDERED: Magnesium Sulfate/Water 50 ML IV PRN (17:10)
[2018-05-30] MEDS ORDERED: Potassium Chloride 20 MEQ in Premix Bag 1 BAG IV ONE (17:10)
[2018-05-30] MEDS ORDERED: Sodium Chloride 0.9% 10 ML Syringe FLUSH PRN (17:10)
[2018-05-30] MEDS: Dextrose 5%-0.45% NaCl 1,000 ML IV PRN (17:14)
--- NOTE | 2018-05-30 17:31 | PCM.HP ---
H&P History of Present Illness - General Date of Service: 05/30/18 Admit Problem/Dx: Admission Diagnosis/Problem Admission Diagnosis/Problem Diabetic ketoacidosis Source of Information: Patient, Family, Old Records, Provider, RN Notes Reviewed History Limitations: Reports: Altered Mental Status (Dementia) - History of Present Illness Initial Comments - Free Text/Narative: Ms. Jamil is an 82-year-old woman who is admitted through the emergency department for management of diabetic ketoacidosis. She has a lifelong history of type 1 diabetes mellitus and usually manages her diabetes with assistance of her and ongoing use of an insulins pump. She was hospitalized at this facility a few days ago with ketoacidosis and underlying urinary tract infection. She was managed with IV insulin infusion and then transitioned back to her insulins pump. Urine culture did grow out resistant Escherichia coli and she was discharged home on Macrodantin. After discharge yesterday but sugars were moderately elevated from baseline and significantly worse today with glucose levels in the 400 range. She was seen and evaluated the clinic to make sure that her insulin pump was functioning properly. Blood sugars remained elevated despite boluses from the pump as well as subcutaneous insulin. She was sent to the emergency department for further evaluation, blood glucose level was 480 and she had evidence of developing ketoacidosis with increase in her anion gap and decrease in her carbon dioxide level. She reports that she otherwise feels well and denies any other significant symptoms at the present time. - Related Data Allergies/Adverse Reactions: Allergies Allergy/AdvReac Type Severity Reaction Status Date / Time Penicillins Allergy Rash Verified 05/30/18 14:03 Sulfa (Sulfonamide Allergy Joint Pain Verified 05/30/18 14:03 Antibiotics) erythromycin base AdvReac Nausea Verified 05/30/18 14:03 [Erythromycin Base] Home Medications: Home Meds Aspirin [Kate Chewable Aspirin] 81 mg PO BEDTIME 10/26/13 [History] Insulin Aspart [NovoLOG] 1 unit SUBCUT ASDIRECTED 10/26/13 [History] Levothyroxine Sodium 1 tab PO ACBREAKFAST 10/26/13 [History] Losartan [Cozaar] 1 tab PO BID 10/26/13 [History] levETIRAcetam [Keppra] 500 mg PO BID 10/26/13 [History] Nitrofurantoin [place]/Macrocryst [Nitrofurantoin [place]-MCR] 100 mg PO BID #10 cap 05/29/18 [Rx] Past Medical History HEENT History: Reports: Impaired Vision Cardiovascular History: Reports: High Cholesterol, Hypertension Respiratory History: Reports: None Gastrointestinal History: Reports: None Genitourinary History: Reports: None [employer] 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: 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: Musculoskeletal History: Reports: Arthritis, Fracture Other Musculoskeletal History: finger Neurological History: Reports: Seizure Psychiatric History: Reports: Depression Endocrine/Metabolic History: Reports: Diabetes, Type I, Hypothyroidism Hematologic History: Reports: None Immunologic History: Reports: None Oncologic (Cancer) History: Reports: None Dermatologic History: Reports: None - Infectious Disease History Infectious Disease History: Reports: Chicken Pox, Measles, Mumps - Past Surgical History HEENT Surgical History: Reports: None Cardiovascular Surgical History: Reports: None Respiratory Surgical History: Reports: None GI Surgical History: Reports: Appendectomy, Cholecystectomy, Colonoscopy Female Surgical History: Reports: None, Tubal Ligation Endocrine Surgical History: Reports: None Neurological Surgical History: Reports: None Musculoskeletal Surgical History: Reports: None Dermatological Surgical History: Reports: None Social & Family History - Family History Family Medical History: Noncontributory - Tobacco Use Smoking Status *Q: Former Smoker Years of Tobacco use: 40 Packs/Tins Daily: 1 Used Tobacco, but Quit: Yes Month/Year Tobacco Last Used: 30 YEARS AGO Second Hand Smoke Exposure: No - Caffeine Use Caffeine Use: Reports: Coffee - Alcohol Use Days Per Week of Alcohol Use: 7 Number of Drinks Per Day: 1 Total Drinks Per Week: 7 Date of Last Drink: 06/02/18 Time of Last Drink: 18:00 - Recreational Drug Use Recreational Drug Use: No H&P Review of Systems - Review of Systems: Review Of Systems: See Below General: Denies: Fever, Chills, Weakness HEENT: Reports: No Symptoms Pulmonary: Reports: No Symptoms Cardiovascular: Reports: No Symptoms Gastrointestinal: Reports: No Symptoms Genitourinary: Reports: No Symptoms Musculoskeletal: Reports: No Symptoms Skin: Reports: No Symptoms Psychiatric: Reports: No Symptoms Neurological: Reports: No Symptoms Hematologic/Lymphatic: Reports: No Symptoms Immunologic: Reports: No Symptoms Exam - Exam Exam: See Below - Vital Signs Vital Signs: Last Vital Signs Temp 98.4 F 05/30/18 15:46 Pulse 89 05/30/18 15:46 Resp 16 05/30/18 15:46 BP 98/58 L 01/21/19 15:46 Pulse Ox 97 05/30/18 15:46 Weight: 105 lb - Exam Quality Assessment: DVT Prophylaxis General: Alert, Cooperative, Mild Distress. No: Oriented HEENT: Conjunctiva Clear, Hearing Intact, Normal Nasal Septum, Posterior Pharynx Clear, Pupils Equal. No: Mucosa Moist & [place] Neck: Supple, Trachea Midline, +2 Carotid Pulse wo Bruit Lungs: Clear to Auscultation, Normal Respiratory Effort Cardiovascular: Regular Rate, Regular Rhythm, Normal S1, Normal S2. No: Systolic Murmur, Diastolic Murmur GI/Abdominal Exam: Soft, Non-Tender, No Organomegaly, No Distention Back Exam: Normal Inspection, Full Range of Motion Extremities: Non-Tender, No Pedal Edema Skin: Warm, Dry, Intact Neurological: Cranial Nerves Intact, Strength Equal Bilateral, Normal Speech, Normal Tone, Sensation Intact. No: Focal Deficit Neuro Extensive - Mental Status: Alert, Oriented x3, Normal Mood/Affect, Normal Cognition, Memory Intact Psychiatric: Alert, Normal Affect, Normal Mood - Patient Data Lab Results Last 24 hrs: Laboratory Results - last 24 hr 05/30/18 05/30/18 05/30/18 Range/Units 15:05 15:13 15:13 WBC 14.6 H (4.5-11.0) K/uL RBC 4.37 (3.30-5.50) M/uL Hgb 14.6 D (12.0-15.0) g/dL Hct 43.1 (36.0-48.0) % MCV 99 H (80-98) fL MCH 33 H (27-31) pg MCHC 34 (32-36) % Plt Count 279 (150-400) K/uL Neut % (Auto) 95 H (36-66) % Lymph % (Auto) 1 L (24-44) % [place] % (Auto) 3 (2-6) % Eos % (Auto) 0 L (2-4) % Baso % (Auto) 0 (0-1) % ABG Hemoglobin 14.8 (12.0-16.0) g/dL ABG Oxyhemoglobin 70.7 % ABG Carboxyhemoglobin 3.1 H (0.0-1.6) % ABG Methemoglobin 0.6 % VBG pH 7.292 L (7.350-7.450) VBG pCO2 30.3 mm/Hg VBG pO2 42.0 mm/Hg VBG HCO3 14.2 mmol/L VBG Total CO2 12.8 mmol/L VBG O2 Saturation 73.4 VBG O2 Content 14.7 %vol VBG Base Excess -10.9 mm/L O2 Delivery Device Room air Sodium (140-148) mmol/L Potassium (3.6-5.2) mmol/L Chloride (100-108) mmol/L Carbon Dioxide (21-32) mmol/L Anion Gap (5.0-14.0) mmol/L BUN (7-18) mg/dL Creatinine (0.6-1.0) mg/dL Est Cr Clr Drug Dosing mL/min Estimated GFR (MDRD) (>60) Glucose (74-106) mg/dL Calcium (8.5-10.1) mg/dL Total Bilirubin (0.2-1.0) mg/dL AST (15-37) U/L ALT (12-78) U/L Alkaline Phosphatase (46-116) U/L Total Protein (6.4-8.2) g/dL Albumin (3.4-5.0) g/dL Globulin (2.3-3.5) g/dL Albumin/Globulin Ratio (1.2-2.2) Ketones Moderate H (NEGATIVE) 05/30/18 Range/Units 15:13 WBC (4.5-11.0) K/uL RBC (3.30-5.50) M/uL Hgb (12.0-15.0) g/dL Hct (36.0-48.0) % MCV (80-98) fL MCH (27-31) pg MCHC (32-36) % Plt Count (150-400) K/uL Neut % (Auto) (36-66) % Lymph % (Auto) (24-44) % [place] % (Auto) (2-6) % Eos % (Auto) (2-4) % Baso % (Auto) (0-1) % ABG Hemoglobin (12.0-16.0) g/dL ABG Oxyhemoglobin % ABG Carboxyhemoglobin (0.0-1.6) % ABG Methemoglobin % VBG pH (7.350-7.450) VBG pCO2 mm/Hg VBG pO2 mm/Hg VBG HCO3 mmol/L VBG Total CO2 mmol/L VBG O2 Saturation VBG O2 Content %vol VBG Base Excess mm/L O2 Delivery Device Sodium 126 L (140-148) mmol/L Potassium 4.1 (3.6-5.2) mmol/L Chloride 88 L (100-108) mmol/L Carbon Dioxide 17 L (21-32) mmol/L Anion Gap 25.1 H (5.0-14.0) mmol/L BUN 17 (7-18) mg/dL Creatinine 1.3 H D (0.6-1.0) mg/dL Est Cr Clr Drug Dosing 24.79 mL/min Estimated GFR (MDRD) 39 L (>60) Glucose 480 H* (74-106) mg/dL Calcium 9.3 (8.5-10.1) mg/dL Total Bilirubin 1.1 H (0.2-1.0) mg/dL AST 28 (15-37) U/L ALT 35 (12-78) U/L Alkaline Phosphatase 109 (46-116) U/L Total Protein 7.2 (6.4-8.2) g/dL Albumin 3.6 (3.4-5.0) g/dL Globulin 3.6 H (2.3-3.5) g/dL Albumin/Globulin Ratio 1.0 L (1.2-2.2) Ketones (NEGATIVE) Result Diagrams: 05/30/18 15:13 05/30/18 15:13 *Q Meaningful Use (ADM) - VTE Risk Assess *Q Each Risk Factor Represents 1 Point: None Total Score 1 Point Risk Factors: 0 Each Risk Factor Represents 2 Points: None Total Score 2 Point Risk Factors: 0 Each Risk Factor Represents 3 Points: Age 75 Years or Greater Total Score 3 Point Risk Factors: 3 Each Risk Factor Represents 5 Points: None Total Score 5 Point Risk Factors: 0 Venous Thromboembolism Risk Factor Score *Q: 3 Problem List Initiated/Reviewed/Updated: Yes Orders Last 24hrs: Active Orders 24 hr Category Date Time Status Patient Status [ADT] Routine ADT 05/30/18 17:10 Active Ambulate [RC] QID Care 05/30/18 17:10 Active Blood Glucose Check, Bedside [RC] Q1H Care 05/30/18 17:10 Active Cardiac Monitoring [RC] .As Directed Care 05/30/18 17:10 Active Diabetes Education [RC] Click to Edit Care 05/30/18 17:10 Active Height and Weight [RC] DAILY Care 05/30/18 17:10 Active Intake and Output [RC] QSHIFT Care 05/30/18 17:10 Active Notify Provider Laboratory Res [RC] ASDIRECTED Care 05/30/18 17:10 Active Notify Provider Laboratory Res [RC] ASDIRECTED Care 05/30/18 17:10 Active Notify Provider Laboratory Res [RC] ASDIRECTED Care 05/30/18 17:10 Active Notify Provider Vital Signs [RC] ASDIRECTED Care 05/30/18 17:10 Active Oxygen Therapy [RC] PRN Care 05/30/18 17:10 Active Peripheral IV Care [RC] . DIRECTED Care 05/30/18 17:10 Active Pulse Oximetry [RC] CONTINUOUS Care 05/30/18 17:10 Active Up With Assistance [RC] ASDIRECTED Care 05/30/18 17:10 Active Up to Chair [RC] QID Care 05/30/18 17:10 Active VTE/DVT Education [RC] Per Unit Routine Care 05/30/18 17:10 Active Vital Signs [RC] Q1H Care 05/30/18 17:10 Active BASIC METABOLIC PANEL,BMP [CHEM] Q4H Lab 05/30/18 17:10 Ordered MAGNESIUM [CHEM] Q6H Lab 05/30/18 17:10 Ordered PHOSPHORUS [CHEM] Q6H Lab 05/30/18 17:10 Ordered UA W/MICROSCOPIC [URIN] Stat Lab 05/30/18 16:41 Ordered Acetaminophen [Tylenol] Med 05/30/18 17:10 Active 650 mg PO Q4H PRN Aspirin Med 05/30/18 21:00 Active 81 mg PO BEDTIME Dextrose 5%-0.45% NaCl [Dextrose 5%-1/2 NS] 1,000 ml Med 05/30/18 17:10 Active IV .CONTINUOUS Dextrose 50% in Water Med 05/30/18 17:10 Active 50 ml IVPUSH ONETIME PRN Docusate Sodium/Sennosides [Senna Plus] Med 05/30/18 17:10 Active 1 tab PO BID PRN Enoxaparin [Lovenox] Med 05/30/18 17:10 Active 40 mg SUBCUT DAILY Insulin Regular, Human [HumuLIN R] 100 unit Med 05/30/18 16:45 Active Sodium Chloride 0.9% [Normal Saline] 99 ml IV TITRATE Levothyroxine Sodium [Levothyroxine Sodium] Med 05/31/18 07:30 Active 1 tab PO ACBREAKFAST Losartan [Cozaar] Med 05/30/18 21:00 Active 50 mg PO BID Magnesium Sulfate/Water [Magnesium Sulfate 2 GM in Med 05/30/18 17:10 Active Water 50 ML] 50 ml IV ONETIME Nitrofurantoin [place]/Macrocryst [Macrobid] Med 05/30/18 21:00 Active 100 mg PO BID Ondansetron [Zofran] Med 05/30/18 17:10 Active 4 mg IV Q4H PRN Potassium Chloride [KCL 20 MEQ in Water 100 ML] 20 meq Med 05/30/18 17:10 Active Premix Bag 1 bag IV ONETIME Potassium Chloride [Potassium Chloride Solution] Med 05/30/18 17:10 Active 20 meq PO NOW PRN Potassium Chloride [Potassium Chloride Solution] Med 05/30/18 17:10 Active 40 meq PO NOW PRN Potassium Chloride [Potassium Chloride Solution] Med 05/30/18 17:10 Active 40 meq PO Q2H PRN Sodium Chloride 0.9% [Normal Saline] 2,000 ml Med 05/30/18 17:10 Active IV .CONTINUOUS Sodium Chloride 0.9% [Saline Flush] Med 05/30/18 17:10 Active 10 ml FLUSH ASDIRECTED PRN Sodium Phosphate 60 mmole Med 05/30/18 17:10 Active Sodium Chloride 0.9% [Normal Saline] 250 ml IV ONETIME levETIRAcetam [Keppra] Med 05/30/18 21:00 Active 500 mg PO BID Medication Continuation Instructions [OM.PC] ASDIRECTED Oth 05/30/18 17:10 Ordered Medication Discontinuation Instructions [OM.PC] Oth 05/30/18 17:10 Ordered ASDIRECTED Peripheral IV Insertion Adult [OM.PC] Routine Oth 05/30/18 17:10 Ordered Resuscitation Status Routine Resus Stat 05/30/18 16:53 Ordered Medication Orders Acetaminophen (Tylenol) 650 mg PO Q4H PRN PRN Reason: Pain (Mild 1-3)/fever Aspirin (Aspirin) 81 mg PO BEDTIME HAN Dextrose/Water (Dextrose 50% In Water) 50 ml IVPUSH ONETIME PRN PRN Reason: Blood Glucose Enoxaparin Sodium (Lovenox) 40 mg SUBCUT DAILY HAN Insulin Human Regular 100 unit (/ Sodium Chloride) 100 mls @ 4.76 mls/hr IV TITRATE HAN; Protocol Dextrose/Sodium Chloride (Dextrose 5%-1/2 Ns) 1,000 mls @ 150 mls/hr IV .CONTINUOUS PRN PRN Reason: Blood Glucose Last Admin: 05/30/18 17:14 Dose: 150 mls/hr Magnesium Sulfate (Magnesium Sulfate 2 Gm In Water 50 Ml) 50 mls @ 25 mls/hr IV ONETIME PRN PRN Reason: low magnesium Potassium Chloride 20 meq/ (Premix) 100 mls @ 50 mls/hr IV ONETIME ONE Stop: 05/30/18 19:09 Sodium Chloride (Normal Saline) 2,000 mls @ 500 mls/hr IV .CONTINUOUS PRN PRN Reason: Blood Glucose Sodium Phosphate 60 mmole/ (Sodium Chloride) 270 mls @ 62.5 mls/hr IV ONETIME PRN PRN Reason: Low phophorus Losartan Potassium (Cozaar) 50 mg PO BID HAN Nitrofurantoin Macrocrystals (Macrobid) 100 mg PO BID HAN Non-Formulary Medication (Levetiracetam [Keppra]) 500 mg PO BID HAN Non-Formulary Medication (Levothyroxine Sodium [Levothyroxine Sodium]) 1 tab PO ACBREAKFAST HAN Ondansetron HCl (Zofran) 4 mg IV Q4H PRN PRN Reason: Nausea/Vomiting Potassium Chloride (Potassium Chloride Solution) 20 meq PO NOW PRN PRN Reason: Hypokalemia Potassium Chloride (Potassium Chloride Solution) 40 meq PO NOW PRN PRN Reason: Hypokalemia Potassium Chloride (Potassium Chloride Solution) 40 meq PO Q2H PRN PRN Reason: Hypokalemia Senna/Docusate Sodium (Senna Plus) 1 tab PO BID PRN PRN Reason: Constipation Sodium Chloride (Saline Flush) 10 ml FLUSH ASDIRECTED PRN PRN Reason: Keep Vein Open Assessment/Plan Comment:: ASSESSMENT AND PLAN DIABETIC KETOACIDOSIS-recent admission for similar problem, glucose levels moderately elevated yesterday after discharge, significantly worse today. Thus far no evidence of current underlying infection or other contributing cause. -IV insulin per protocol -IV fluids per protocol -Frequent labs and monitoring of electrolytes per protocol -Discontinue use of insulin pump until ketoacidosis has resolved TYPE 1 DIABETES MELLITUS -Management as above HYPERTENSION -Continue outpatient medical therapy SEIZURE DISORDER -Continue current therapy with Keppra RECENT URINARY TRACT INFECTION-diagnosed during last hospitalization, culture grew out resistant Escherichia coli -Repeat urinalysis -Continue Macrodantin pending further evaluation MAINTENANCE ISSUES -DVT prophylaxis; Lovenox 40 mg subcutaneous daily -GI prophylaxis; not indicated -[place] catheter; not indicated -Nutrition; consistent carb diet -Nicotine dependence; not required CODE STATUS-FULL CODE ADMISSION STATUS-patient will be admitted to inpatient status, expect at least a 2 night hospital stay for evaluation and management of problems as outlined above. At the time of this admission I do not reasonably expected evaluation and management of this problem will require more than a 96 hour hospital stay. DISPOSITION-anticipate discharge to home after the hospital stay. PRIMARY CARE PROVIDER-Kobe Morel
[2018-05-30] MEDS: Aspirin 81 MG Tab.Chew PO SCH (20:36)
[2018-05-30] MEDS: Nitrofurantoin Monohydrate/Macrocrystalline 100 MG Cap PO SCH (20:36)
[2018-05-30] MEDS: levETIRAcetam 250 MG Tab PO SCH (20:36)
[2018-05-30] MEDS: Enoxaparin 40 MG/0.4 ML Syringe SUBCUT SCH (20:36)
[2018-05-30] MEDS: Losartan 50 MG Tab PO SCH (20:37)
[2018-05-30] MEDS ORDERED: Lidocaine 1% PF 2 ML SDV INJECT ONE ×2 (21:54→23:30)
[2018-05-30] MEDS ORDERED: Potassium Chloride 100 ML ONE (21:57)
[2018-05-30] MEDS ORDERED: Potassium Chloride 40 MEQ/20 ML SDV IV SCH (22:00)
[2018-05-30] MEDS: Potassium Chloride 20 MEQ in Premix Bag 1 BAG IV SCH (22:21)
[2018-05-31] MEDS: Potassium Chloride 20 MEQ in Premix Bag 1 BAG IV SCH (00:05)
[2018-05-31] MEDS: Dextrose 5%-0.45% NaCl 1,000 ML IV PRN ×3 (00:35→13:28)
[2018-05-31] MEDS ORDERED: Magnesium Sulfate/Water 2 GM in Premix Bag 1 BAG IV PRN (06:02)
[2018-05-31] MEDS ORDERED: Potassium Chloride 20 MEQ in Premix Bag 1 BAG IV PRN (06:29)
[2018-05-31] MEDS ORDERED: Lidocaine 1% 50 ML MDV INJECT PRN (06:32)
[2018-05-31] MEDS: Losartan 50 MG Tab PO SCH ×2 (08:25→20:23)
[2018-05-31] MEDS: Levothyroxine 25 MCG Tab PO SCH (08:25)
[2018-05-31] MEDS: levETIRAcetam 250 MG Tab PO SCH ×2 (08:26→20:23)
[2018-05-31] MEDS: Nitrofurantoin Monohydrate/Macrocrystalline 100 MG Cap PO SCH ×2 (09:00→20:23)
[2018-05-31] MEDS ORDERED: Insulin Lispro 100 Units/ML 3 ML Vial SUBCUT SCH (15:15)
[2018-05-31] MEDS: Enoxaparin 40 MG/0.4 ML Syringe SUBCUT SCH (16:41)
--- NOTE | 2018-05-31 18:02 | PCM.PN ---
- General Info Date of Service: 05/31/18 Subjective Update: Ms. Jamil is improved since admission with better control of blood sugars and resolution of ketoacidosis. She does remain intermittently confused which I suspect is baseline for her. No obvious underlying infection identified thus far to explain her current ketoacidosis. There has been some question as to whether she is appropriately managing her insulins pump because of confusion. Functional Status: Reports: Tolerating Diet, Urinating - Review of Systems General: Denies: Fever, Chills Pulmonary: Reports: No Symptoms Cardiovascular: Reports: No Symptoms Gastrointestinal: Reports: No Symptoms - Patient Data Vitals - Most Recent: Last Vital Signs Temp 98.6 F 05/31/18 08:00 Pulse 90 05/31/18 17:00 Resp 16 05/31/18 17:00 BP 157/72 H 05/31/18 08:25 Pulse Ox 98 05/31/18 11:00 Weight - Most Recent: 127 lb 13.89 oz I&O - Last 24 Hours: Intake & Output 05/31/18 05/31/18 05/31/18 06:59 14:59 22:59 Intake Total 390 16 Output Total 1000 850 Balance -610 -834 Lab Results Last 24 Hours: Laboratory Results - last 24 hr 05/30/18 05/30/18 05/30/18 Range/Units 20:17 21:12 23:00 WBC (4.5-11.0) K/uL RBC (3.30-5.50) M/uL Hgb (12.0-15.0) g/dL Hct (36.0-48.0) % MCV (80-98) fL MCH (27-31) pg MCHC (32-36) % Plt Count (150-400) K/uL Neut % (Auto) (36-66) % Lymph % (Auto) (24-44) % [place] % (Auto) (2-6) % Eos % (Auto) (2-4) % Baso % (Auto) (0-1) % Sodium 131 L (140-148) mmol/L Potassium 3.0 L 3.5 L (3.6-5.2) mmol/L Chloride 99 L (100-108) mmol/L Carbon Dioxide 23 (21-32) mmol/L Anion Gap 12.5 (5.0-14.0) mmol/L BUN 12 (7-18) mg/dL Creatinine 0.9 (0.6-1.0) mg/dL Est Cr Clr Drug Dosing 35.81 mL/min Estimated GFR (MDRD) > 60 (>60) Glucose 108 H (74-106) mg/dL Calcium 8.1 L (8.5-10.1) mg/dL Phosphorus 1.3 L (2.5-4.9) mg/dL Magnesium 1.9 (1.8-2.4) mg/dL Total Bilirubin (0.2-1.0) mg/dL AST (15-37) U/L ALT (12-78) U/L Alkaline Phosphatase (46-116) U/L Total Protein (6.4-8.2) g/dL Albumin (3.4-5.0) g/dL Globulin (2.3-3.5) g/dL Albumin/Globulin Ratio (1.2-2.2) Urine Color Yellow Urine Appearance Clear Urine pH 5.0 (4.5-8.0) Ur Specific [place] 1.015 (1.008-1.030) Urine Protein Negative (NEGATIVE) mg/dL Urine Glucose (UA) >1000 H (NEGATIVE) mg/dL Urine Ketones 150 H (NEGATIVE) mg/dL Urine Occult Blood Negative (NEGATIVE) Urine Nitrite Negative (NEGATIVE) Urine Bilirubin Negative (NEGATIVE) Urine Urobilinogen Normal (NORMAL) mg/dL Ur Leukocyte Esterase Negative (NEGATIVE) Urine RBC 0-5 (0-5) Urine WBC 5-10 H (0-5) Ur Epithelial Cells Few Amorphous Sediment Rare Urine Bacteria Rare Urine Mucus Few 05/31/18 05/31/18 05/31/18 Range/Units 01:00 03:01 05:06 WBC 8.4 (4.5-11.0) K/uL RBC 3.66 (3.30-5.50) M/uL Hgb 12.4 D (12.0-15.0) g/dL Hct 34.8 L (36.0-48.0) % MCV 95 (80-98) fL MCH 34 H (27-31) pg MCHC 36 (32-36) % Plt Count 202 (150-400) K/uL Neut % (Auto) 90 H (36-66) % Lymph % (Auto) 3 L (24-44) % [place] % (Auto) 6 (2-6) % Eos % (Auto) 1 L (2-4) % Baso % (Auto) 0 (0-1) % Sodium 127 L (140-148) mmol/L Potassium 4.5 4.0 (3.6-5.2) mmol/L Chloride 98 L (100-108) mmol/L Carbon Dioxide 18 L (21-32) mmol/L Anion Gap 15.0 H (5.0-14.0) mmol/L BUN 9 (7-18) mg/dL Creatinine 0.7 (0.6-1.0) mg/dL Est Cr Clr Drug Dosing 46.04 mL/min Estimated GFR (MDRD) > 60 (>60) Glucose 217 H (74-106) mg/dL Calcium 7.7 L (8.5-10.1) mg/dL Phosphorus (2.5-4.9) mg/dL Magnesium (1.8-2.4) mg/dL Total Bilirubin (0.2-1.0) mg/dL AST (15-37) U/L ALT (12-78) U/L Alkaline Phosphatase (46-116) U/L Total Protein (6.4-8.2) g/dL Albumin (3.4-5.0) g/dL Globulin (2.3-3.5) g/dL Albumin/Globulin Ratio (1.2-2.2) Urine Color Urine Appearance Urine pH (4.5-8.0) Ur Specific [place] (1.008-1.030) Urine Protein (NEGATIVE) mg/dL Urine Glucose (UA) (NEGATIVE) mg/dL Urine Ketones (NEGATIVE) mg/dL Urine Occult Blood (NEGATIVE) Urine Nitrite (NEGATIVE) Urine Bilirubin (NEGATIVE) Urine Urobilinogen (NORMAL) mg/dL Ur Leukocyte Esterase (NEGATIVE) Urine RBC (0-5) Urine WBC (0-5) Ur Epithelial Cells Amorphous Sediment Urine Bacteria Urine Mucus 05/31/18 05/31/18 Range/Units 05:06 09:24 WBC (4.5-11.0) K/uL RBC (3.30-5.50) M/uL Hgb (12.0-15.0) g/dL Hct (36.0-48.0) % MCV (80-98) fL MCH (27-31) pg MCHC (32-36) % Plt Count (150-400) K/uL Neut % (Auto) (36-66) % Lymph % (Auto) (24-44) % [place] % (Auto) (2-6) % Eos % (Auto) (2-4) % Baso % (Auto) (0-1) % Sodium 128 L 125 L (140-148) mmol/L Potassium 3.6 3.8 (3.6-5.2) mmol/L Chloride 100 97 L (100-108) mmol/L Carbon Dioxide 20 L 18 L (21-32) mmol/L Anion Gap 11.6 13.8 (5.0-14.0) mmol/L BUN 8 6 L (7-18) mg/dL Creatinine 0.7 0.7 (0.6-1.0) mg/dL Est Cr Clr Drug Dosing 46.04 46.04 mL/min Estimated GFR (MDRD) > 60 > 60 (>60) Glucose 189 H 190 H (74-106) mg/dL Calcium 7.9 L 7.7 L (8.5-10.1) mg/dL Phosphorus 1.3 L (2.5-4.9) mg/dL Magnesium 1.7 L (1.8-2.4) mg/dL Total Bilirubin 0.9 (0.2-1.0) mg/dL AST 101 H D (15-37) U/L ALT 59 (12-78) U/L Alkaline Phosphatase 97 (46-116) U/L Total Protein 5.5 L (6.4-8.2) g/dL Albumin 2.6 L (3.4-5.0) g/dL Globulin 2.9 (2.3-3.5) g/dL Albumin/Globulin Ratio 0.9 L (1.2-2.2) Urine Color Urine Appearance Urine pH (4.5-8.0) Ur Specific [place] (1.008-1.030) Urine Protein (NEGATIVE) mg/dL Urine Glucose (UA) (NEGATIVE) mg/dL Urine Ketones (NEGATIVE) mg/dL Urine Occult Blood (NEGATIVE) Urine Nitrite (NEGATIVE) Urine Bilirubin (NEGATIVE) Urine Urobilinogen (NORMAL) mg/dL Ur Leukocyte Esterase (NEGATIVE) Urine RBC (0-5) Urine WBC (0-5) Ur Epithelial Cells Amorphous Sediment Urine Bacteria Urine Mucus Med Orders - Current: Current Medications Acetaminophen (Tylenol) 650 mg PO Q4H PRN PRN Reason: Pain (Mild 1-3)/fever Aspirin (Aspirin) 81 mg PO BEDTIME [facility] Last Admin: 05/30/18 20:36 Dose: 81 mg Dextrose/Water (Dextrose 50% In Water) 50 ml IVPUSH ONETIME PRN PRN Reason: Blood Glucose Enoxaparin Sodium (Lovenox) 40 mg SUBCUT QPM [facility] Last Admin: 05/31/18 16:41 Dose: 40 mg Magnesium Sulfate (Magnesium Sulfate 2 Gm In Water 50 Ml) 50 mls @ 25 mls/hr IV ONETIME PRN PRN Reason: low magnesium Last Admin: 05/30/18 18:25 Dose: 25 mls/hr Sodium Chloride (Normal Saline) 2,000 mls @ 500 mls/hr IV .CONTINUOUS PRN PRN Reason: Blood Glucose Last Admin: 05/30/18 20:58 Dose: 500 mls/hr Sodium Phosphate 60 mmole/ (Sodium Chloride) 270 mls @ 62.5 mls/hr IV ONETIME PRN PRN Reason: Low phophorus Magnesium Sulfate 2 gm/ Premix 50 mls @ 25 mls/hr IV Q6H PRN PRN Reason: hypomagnesemia Last Admin: 05/31/18 06:45 Dose: 25 mls/hr Potassium Chloride 20 meq/ (Premix) 100 mls @ 50 mls/hr IV Q2H PRN PRN Reason: low K+ Last Admin: 05/31/18 06:54 Dose: 50 mls/hr Insulin Human Lispro (Humalog) 0 unit SUBCUT ASDIRECTED [facility] Levetiracetam (Keppra) 500 mg PO BID [facility] Last Admin: 05/31/18 08:26 Dose: 500 mg Levothyroxine Sodium (Levothyroxine) 75 mcg PO ACBREAKFAST [facility] Last Admin: 05/31/18 08:25 Dose: 75 mcg Lidocaine HCl (Xylocaine 1%) 2 ml INJECT Q2H PRN PRN Reason: add to kcl Last Admin: 05/31/18 06:53 Dose: 2 ml Losartan Potassium (Cozaar) 50 mg PO BID [facility] Last Admin: 05/31/18 08:25 Dose: 50 mg Nitrofurantoin Macrocrystals (Macrobid) 100 mg PO BID [facility] Last Admin: 05/31/18 09:00 Dose: 100 mg Ondansetron HCl (Zofran) 4 mg IV Q4H PRN PRN Reason: Nausea/Vomiting Potassium Chloride (Potassium Chloride Solution) 20 meq PO NOW PRN PRN Reason: Hypokalemia Last Admin: 05/30/18 21:10 Dose: 20 meq Potassium Chloride (Potassium Chloride Solution) 40 meq PO NOW PRN PRN Reason: Hypokalemia Potassium Chloride (Potassium Chloride Solution) 40 meq PO Q2H PRN PRN Reason: Hypokalemia Senna/Docusate Sodium (Senna Plus) 1 tab PO BID PRN PRN Reason: Constipation Sodium Chloride (Saline Flush) 10 ml FLUSH ASDIRECTED PRN PRN Reason: Keep Vein Open Discontinued Medications Enoxaparin Sodium (Lovenox) 40 mg SUBCUT DAILY [facility] Insulin Human Regular 100 unit (/ Sodium Chloride) 100 mls @ 4.76 mls/hr IV TITRATE [facility]AN; Protocol Last Titration: 05/31/18 13:00 Dose: 0.19 units/kg/hr, 9.2 mls/hr Sodium Chloride (Normal Saline) 1,000 mls @ 0 mls/hr IV ASDIRECTED [facility] Dextrose/Sodium Chloride (Dextrose 5%-1/2 Ns) 1,000 mls @ 150 mls/hr IV .CONTINUOUS PRN PRN Reason: Blood Glucose Last Admin: 05/31/18 13:28 Dose: 150 mls/hr Potassium Chloride 20 meq/ (Premix) 100 mls @ 50 mls/hr IV ONETIME ONE Stop: 05/30/18 19:09 Last Admin: 05/30/18 19:32 Dose: Not Given Potassium Chloride 20 meq/ (Premix) 100 mls @ 50 mls/hr IV Q2H [facility] Stop: 05/31/18 01:59 Last Admin: 05/31/18 00:05 Dose: 50 mls/hr Potassium Chloride (Kcl 20 Meq In Water 100 Ml) Confirm Administered Dose 100 mls @ as directed .ROUTE .STK-MED ONE Stop: 05/30/18 21:58 Last Admin: 05/30/18 23:16 Dose: Not Given Insulin Human Regular (Humulin R) 12 unit SUBCUT ONETIME ONE Stop: 05/30/18 15:35 Last Admin: 05/31/18 08:34 Dose: Not Given Lidocaine HCl (Xylocaine-Mpf 1%) 2 ml INJECT ONETIME ONE Stop: 05/30/18 21:55 Last Admin: 05/30/18 22:21 Dose: 2 ml Lidocaine HCl (Xylocaine-Mpf 1%) 2 ml INJECT ONETIME ONE Stop: 05/30/18 23:31 Last Admin: 05/31/18 00:06 Dose: 2 ml - Exam Quality Assessment: DVT Prophylaxis General: Alert, Cooperative, No Acute Distress Lungs: Clear to Auscultation, Normal Respiratory Effort Cardiovascular: Regular Rate, Regular Rhythm, No Murmurs GI/Abdominal Exam: Soft, Non-Tender, No Organomegaly, No Distention Extremities: Non-Tender, No Pedal Edema - Problem List Review Problem List Initiated/Reviewed/Updated: Yes - My Orders Last 24 Hours: My Active Orders 05/30/18 17:00 Enoxaparin [Lovenox] 40 mg SUBCUT QPM 05/30/18 17:10 Patient Status [ADT] Routine Ambulate [RC] QID Blood Glucose Check, Bedside [RC] Q1H Diabetes Education [RC] Click to Edit Height and Weight [RC] DAILY Intake and Output [RC] QSHIFT Notify Provider Laboratory Res [RC] ASDIRECTED Notify Provider Vital Signs [RC] ASDIRECTED Pulse Oximetry [RC] CONTINUOUS Up With Assistance [RC] ASDIRECTED Up to Chair [RC] QID VTE/DVT Education [RC] Per Unit Routine Vital Signs [RC] Q1H Acetaminophen [Tylenol] 650 mg PO Q4H PRN Dextrose 50% in Water 50 ml IVPUSH ONETIME PRN Docusate Sodium/Sennosides [Senna Plus] 1 tab PO BID PRN Magnesium Sulfate/Water [Magnesium Sulfate 2 GM in Water 50 ML] 50 ml IV ONETIME Ondansetron [Zofran] 4 mg IV Q4H PRN Potassium Chloride [Potassium Chloride Solution] 20 meq PO NOW PRN Potassium Chloride [Potassium Chloride Solution] 40 meq PO NOW PRN Potassium Chloride [Potassium Chloride Solution] 40 meq PO Q2H PRN Sodium Chloride 0.9% [Normal Saline] 2,000 ml IV .CONTINUOUS Sodium Chloride 0.9% [Saline Flush] 10 ml FLUSH ASDIRECTED PRN Sodium Phosphate 60 mmole Sodium Chloride 0.9% [Normal Saline] 250 ml IV ONETIME Medication Continuation Instructions [OM.PC] ASDIRECTED Medication Discontinuation Instructions [OM.PC] ASDIRECTED Peripheral IV Insertion Adult [OM.PC] Routine 05/30/18 21:00 Aspirin 81 mg PO BEDTIME Losartan [Cozaar] 50 mg PO BID Nitrofurantoin [place]/Macrocryst [Macrobid] 100 mg PO BID levETIRAcetam [Keppra] 500 mg PO BID 05/31/18 06:02 Magnesium Sulfate/Water [Magnesium Sulfate 2 GM in Water 50 ML] 2 gm Premix Bag 1 bag IV Q6H 05/31/18 06:29 Potassium Chloride [KCL 20 MEQ in Water 100 ML] 20 meq Premix Bag 1 bag IV Q2H 05/31/18 06:32 Lidocaine 1% [Xylocaine 1%] 2 ml INJECT Q2H PRN 05/31/18 07:30 Levothyroxine 75 mcg PO ACBREAKFAST 05/31/18 15:15 Insulin Lispro [HumaLOG] 0 unit SUBCUT ASDIRECTED 05/31/18 17:58 Convert IV to Saline Lock [OM.PC] Routine 05/31/18 Breakfast Consistent Carbohydrate Diet [DIET] 05/31/18 Lunch Consistent Carbohydrate Diet [DIET] 06/01/18 05:00 BASIC METABOLIC PANEL,BMP [CHEM] Timed CBC WITH AUTO DIFF [HEME] Timed MAGNESIUM [CHEM] Timed - Plan Plan:: ASSESSMENT AND PLAN DIABETIC KETOACIDOSIS-resolved, stable back on insulin pump -Resume insulin pump -Follow-up labs in a.m. -Close follow-up with insulation cutter and former TYPE 1 DIABETES MELLITUS -Management as above HYPERTENSION -Continue outpatient medical therapy SEIZURE DISORDER -Continue current therapy with Keppra RECENT URINARY TRACT INFECTION-all of urinalysis shows no evidence of active infection -Continue Macrodantin MAINTENANCE ISSUES -DVT prophylaxis; Lovenox 40 mg subcutaneous daily -GI prophylaxis; not indicated -Mckeon catheter; not indicated -Nutrition; consistent carb diet -Nicotine dependence; not required CODE STATUS-FULL CODE ADMISSION STATUS-patient will be admitted to inpatient status, expect at least a 2 night hospital stay for evaluation and management of problems as outlined above. At the time of this admission I do not reasonably expected evaluation and management of this problem will require more than a 96 hour hospital stay. DISPOSITION-anticipate discharge to home after the hospital stay. PRIMARY CARE PROVIDER-Kobe Morel
[2018-05-31] MEDS: Aspirin 81 MG Tab.Chew PO SCH (20:23)
[2018-06-01] MEDS ORDERED: Potassium Chloride 20 MEQ Tab.ER PO ONE ×2 (06:30→18:57)
[2018-06-01] MEDS ORDERED: Potassium Chloride 20 MEQ in Premix Bag 1 BAG IV SCH (06:30)
[2018-06-01] MEDS ORDERED: Potassium Chloride 40 MEQ/20 ML SDV IV ONE (06:32)
[2018-06-01] MEDS: Levothyroxine 25 MCG Tab PO SCH (06:48)
[2018-06-01] MEDS: Losartan 50 MG Tab PO SCH ×2 (08:45→20:36)
[2018-06-01] MEDS: levETIRAcetam 250 MG Tab PO SCH ×2 (08:45→20:37)
[2018-06-01] MEDS: Nitrofurantoin Monohydrate/Macrocrystalline 100 MG Cap PO SCH ×2 (08:47→20:37)
[2018-06-01] MEDS: Potassium Chloride 20 MEQ, Lidocaine 1% 2 ML in Sodium Chloride 0.9% 100 ML IV SCH ×2 (09:28→11:20)
[2018-06-01] MEDS: Magnesium Sulfate/Water 2 GM in Premix Bag 1 BAG IV SCH ×2 (09:29→16:04)
[2018-06-01] MEDS: Magnesium Oxide 400 MG Tab PO SCH ×2 (09:49→20:37)
--- NOTE | 2018-06-01 09:59 | PCM.PN ---
- General Info Date of Service: 06/01/18 Subjective Update: Gaye has improved since yesterday, glucose levels within desired range, back on insulin pump. Magnesium and potassium low and are being replaced. Ketoacidosis has resolved and she otherwise feels well. Continues to experience intermittent episodes of confusion, reports poor short-term memory over the past several months. Functional Status: Reports: Tolerating Diet, Urinating - Review of Systems General: Denies: Fever, Chills Pulmonary: Reports: No Symptoms Cardiovascular: Reports: No Symptoms Gastrointestinal: Reports: No Symptoms Psychiatric: Reports: Confusion - Patient Data Vitals - Most Recent: Last Vital Signs Temp 98.8 F 06/01/18 07:00 Pulse 82 06/01/18 07:00 Resp 27 H 06/01/18 05:50 BP 123/73 06/01/18 08:45 Pulse Ox 98 06/01/18 04:55 Weight - Most Recent: 127 lb 13.89 oz I&O - Last 24 Hours: Intake & Output 05/31/18 06/01/18 06/01/18 22:59 06:59 14:59 Intake Total 240 480 Output Total 1050 1750 250 Balance -810 -1270 -250 Lab Results Last 24 Hours: Laboratory Results - last 24 hr 06/01/18 06/01/18 Range/Units 05:52 05:52 WBC 4.8 (4.5-11.0) K/uL RBC 4.03 (3.30-5.50) M/uL Hgb 13.5 (12.0-15.0) g/dL Hct 38.0 (36.0-48.0) % MCV 94 (80-98) fL MCH 34 H (27-31) pg MCHC 36 (32-36) % Plt Count 159 (150-400) K/uL Neut % (Auto) 81 H (36-66) % Lymph % (Auto) 4 L (24-44) % [place] % (Auto) 7 H (2-6) % Eos % (Auto) 8 H (2-4) % Baso % (Auto) 0 (0-1) % Sodium 132 L (140-148) mmol/L Potassium 2.8 L* (3.6-5.2) mmol/L Chloride 98 L (100-108) mmol/L Carbon Dioxide 24 (21-32) mmol/L Anion Gap 12.8 (5.0-14.0) mmol/L BUN 3 L (7-18) mg/dL Creatinine 0.5 L (0.6-1.0) mg/dL Est Cr Clr Drug Dosing 64.46 mL/min Estimated GFR (MDRD) > 60 (>60) Glucose 138 H (74-106) mg/dL Calcium 8.1 L (8.5-10.1) mg/dL Magnesium 1.5 L (1.8-2.4) mg/dL Med Orders - Current: Current Medications Acetaminophen (Tylenol) 650 mg PO Q4H PRN PRN Reason: Pain (Mild 1-3)/fever Aspirin (Aspirin) 81 mg PO BEDTIME [facility] Last Admin: 05/31/18 20:23 Dose: 81 mg Dextrose/Water (Dextrose 50% In Water) 50 ml IVPUSH ONETIME PRN PRN Reason: Blood Glucose Last Admin: 06/01/18 01:39 Dose: 50 ml Enoxaparin Sodium (Lovenox) 40 mg SUBCUT QPM [facility] Last Admin: 05/31/18 16:41 Dose: 40 mg Magnesium Sulfate (Magnesium Sulfate 2 Gm In Water 50 Ml) 50 mls @ 25 mls/hr IV ONETIME PRN PRN Reason: low magnesium Last Admin: 05/30/18 18:25 Dose: 25 mls/hr Sodium Chloride (Normal Saline) 2,000 mls @ 500 mls/hr IV .CONTINUOUS PRN PRN Reason: Blood Glucose Last Admin: 05/30/18 20:58 Dose: 500 mls/hr Sodium Phosphate 60 mmole/ (Sodium Chloride) 270 mls @ 62.5 mls/hr IV ONETIME PRN PRN Reason: Low phophorus Magnesium Sulfate 2 gm/ Premix 50 mls @ 25 mls/hr IV Q6H PRN PRN Reason: hypomagnesemia Last Admin: 05/31/18 06:45 Dose: 25 mls/hr Potassium Chloride 20 meq/Lidocaine HCl 2 ml/ Sodium Chloride 112 mls @ 56 mls/ hr IV Q2H [facility] Stop: 06/01/18 12:59 Last Admin: 06/01/18 09:28 Dose: 56 mls/hr Magnesium Sulfate 2 gm/ Premix 50 mls @ 25 mls/hr IV Q6H [facility] Stop: 06/01/18 17:59 Last Admin: 06/01/18 09:29 Dose: 25 mls/hr Insulin Human Lispro (Humalog) 0 unit SUBCUT ASDIRECTED [facility] Levetiracetam (Keppra) 500 mg PO BID [facility] Last Admin: 06/01/18 08:45 Dose: 500 mg Levothyroxine Sodium (Levothyroxine) 75 mcg PO ACBREAKFAST [facility] Last Admin: 06/01/18 06:48 Dose: 75 mcg Lidocaine HCl (Xylocaine 1%) 2 ml INJECT Q2H PRN PRN Reason: add to kcl Last Admin: 05/31/18 06:53 Dose: 2 ml Losartan Potassium (Cozaar) 50 mg PO BID [facility] Last Admin: 06/01/18 08:45 Dose: 50 mg Magnesium Oxide (Magnesium Oxide) 400 mg PO BID [facility] Last Admin: 06/01/18 09:49 Dose: 400 mg Nitrofurantoin Macrocrystals (Macrobid) 100 mg PO BID [facility] Last Admin: 06/01/18 08:47 Dose: 100 mg Ondansetron HCl (Zofran) 4 mg IV Q4H PRN PRN Reason: Nausea/Vomiting Potassium Chloride (Potassium Chloride Solution) 20 meq PO NOW PRN PRN Reason: Hypokalemia Last Admin: 05/30/18 21:10 Dose: 20 meq Potassium Chloride (Potassium Chloride Solution) 40 meq PO NOW PRN PRN Reason: Hypokalemia Potassium Chloride (Potassium Chloride Solution) 40 meq PO Q2H PRN PRN Reason: Hypokalemia Senna/Docusate Sodium (Senna Plus) 1 tab PO BID PRN PRN Reason: Constipation Sodium Chloride (Saline Flush) 10 ml FLUSH ASDIRECTED PRN PRN Reason: Keep Vein Open Discontinued Medications Enoxaparin Sodium (Lovenox) 40 mg SUBCUT DAILY [facility] Insulin Human Regular 100 unit (/ Sodium Chloride) 100 mls @ 4.76 mls/hr IV TITRATE [facility]AN; Protocol Last Titration: 05/31/18 13:00 Dose: 0.19 units/kg/hr, 9.2 mls/hr Sodium Chloride (Normal Saline) 1,000 mls @ 0 mls/hr IV ASDIRECTED [facility] Dextrose/Sodium Chloride (Dextrose 5%-1/2 Ns) 1,000 mls @ 150 mls/hr IV .CONTINUOUS PRN PRN Reason: Blood Glucose Last Admin: 05/31/18 13:28 Dose: 150 mls/hr Potassium Chloride 20 meq/ (Premix) 100 mls @ 50 mls/hr IV ONETIME ONE Stop: 05/30/18 19:09 Last Admin: 05/30/18 19:32 Dose: Not Given Potassium Chloride 20 meq/ (Premix) 100 mls @ 50 mls/hr IV Q2H [facility] Stop: 05/31/18 01:59 Last Admin: 05/31/18 00:05 Dose: 50 mls/hr Potassium Chloride (Kcl 20 Meq In Water 100 Ml) Confirm Administered Dose 100 mls @ as directed .ROUTE .STK-MED ONE Stop: 05/30/18 21:58 Last Admin: 05/30/18 23:16 Dose: Not Given Potassium Chloride 20 meq/ (Premix) 100 mls @ 50 mls/hr IV Q2H PRN PRN Reason: low K+ Last Admin: 05/31/18 06:54 Dose: 50 mls/hr Potassium Chloride 20 meq/ (Premix) 100 mls @ 50 mls/hr IV Q2H [facility] Stop: 06/01/18 10:29 Last Admin: 06/01/18 09:53 Dose: Not Given Insulin Human Regular (Humulin R) 12 unit SUBCUT ONETIME ONE Stop: 05/30/18 15:35 Last Admin: 05/31/18 08:34 Dose: Not Given Lidocaine HCl (Xylocaine-Mpf 1%) 2 ml INJECT ONETIME ONE Stop: 05/30/18 21:55 Last Admin: 05/30/18 22:21 Dose: 2 ml Lidocaine HCl (Xylocaine-Mpf 1%) 2 ml INJECT ONETIME ONE Stop: 05/30/18 23:31 Last Admin: 05/31/18 00:06 Dose: 2 ml Potassium Chloride (Klor-Con M20) 40 meq PO ONETIME ONE Stop: 06/01/18 06:31 Last Admin: 06/01/18 06:48 Dose: 40 meq - Exam Quality Assessment: DVT Prophylaxis General: Alert, Cooperative, No Acute Distress Lungs: Clear to Auscultation, Normal Respiratory Effort Cardiovascular: Regular Rate, Regular Rhythm, No Murmurs GI/Abdominal Exam: Soft, Non-Tender, No Organomegaly, No Distention Back Exam: Normal Inspection, Full Range of Motion - Problem List Review Problem List Initiated/Reviewed/Updated: Yes - My Orders Last 24 Hours: My Active Orders 05/31/18 15:15 Insulin Lispro [HumaLOG] 0 unit SUBCUT ASDIRECTED 05/31/18 17:58 Convert IV to Saline Lock [OM.PC] Routine 05/31/18 Lunch Consistent Carbohydrate Diet [DIET] 06/01/18 09:00 Magnesium Oxide 400 mg PO BID Potassium Chloride 20 meq Lidocaine 1% [Xylocaine 1%] 2 ml Sodium Chloride 0.9 % [Normal Saline] 100 ml IV Q2H 06/01/18 10:00 Magnesium Sulfate/Water [Magnesium Sulfate 2 GM in Water 50 ML] 2 gm Premix Bag 1 bag IV Q6H 06/01/18 11:00 POTASSIUM,K [CHEM] Stat 06/01/18 17:00 MAGNESIUM [CHEM] Stat POTASSIUM,K [CHEM] Stat 06/02/18 05:00 BASIC METABOLIC PANEL,BMP [CHEM] Timed MAGNESIUM [CHEM] Timed - Plan Plan:: ASSESSMENT AND PLAN DIABETIC KETOACIDOSIS-resolved, stable back on insulin pump -Resume insulin pump -Follow-up labs in a.m. and later today -Close follow-up with nutrition educator HYPOKALEMIA -IV and oral potassium replacement -Recheck potassium level later this morning, late afternoon, and in a.m. HYPOMAGNESEMIA -IV and oral replacement -Recheck level later this afternoon and in a.m. COGNITIVE IMPAIRMENT-recurrent episodes of confusion during hospitalization, reports poor short-term memory over the past several months. -Outpatient neuropsychiatric evaluation TYPE 1 DIABETES MELLITUS -Management as above HYPERTENSION -Continue outpatient medical therapy SEIZURE DISORDER -Continue current therapy with Keppra RECENT URINARY TRACT INFECTION-all of urinalysis shows no evidence of active infection -Continue Macrodantin MAINTENANCE ISSUES -DVT prophylaxis; Lovenox 40 mg subcutaneous daily -GI prophylaxis; not indicated -Mckeon catheter; not indicated -Nutrition; consistent carb diet -Nicotine dependence; not required CODE STATUS-FULL CODE ADMISSION STATUS-patient will be admitted to inpatient status, expect at least a 2 night hospital stay for evaluation and management of problems as outlined above. At the time of this admission I do not reasonably expected evaluation and management of this problem will require more than a 96 hour hospital stay. DISPOSITION-anticipate discharge to home after the hospital stay. PRIMARY CARE PROVIDER-Kobe Morel
[2018-06-01] MEDS: Enoxaparin 40 MG/0.4 ML Syringe SUBCUT SCH (16:04)
[2018-06-01] MEDS: Aspirin 81 MG Tab.Chew PO SCH (20:36)
[2018-06-02] MEDS: Levothyroxine 25 MCG Tab PO SCH (07:35)
[2018-06-02] MEDS: Magnesium Oxide 400 MG Tab PO SCH (08:47)
[2018-06-02] MEDS: levETIRAcetam 250 MG Tab PO SCH (08:47)
[2018-06-02] MEDS: Losartan 50 MG Tab PO SCH (08:48)
[2018-06-02] MEDS: Nitrofurantoin Monohydrate/Macrocrystalline 100 MG Cap PO SCH (08:48)
--- NOTE | 2018-06-02 12:25 | PCM.DCSUM1 ---
Discharge Summary - Hospital Course Brief History: Ms. Jamil is an 82-year-old woman with a known history of type 1 diabetes mellitus. She was admitted through the emergency department with hyperglycemia and recurrent diabetic ketoacidosis. - Discharge Data Discharge Date: 06/02/18 Discharge Disposition: Home, Self-Care 01 Condition: Fair - Discharge Diagnosis/Problem(s) (1) Diabetic ketoacidosis SNOMED Code(s): 132096669, 758329649 ICD Code: E13.10 - OTH DIABETES MELLITUS WITH KETOACIDOSIS WITHOUT COMA Status: Acute Current Visit: Yes (2) HTN (hypertension) SNOMED Code(s): 73333017 ICD Code: I10 - ESSENTIAL (PRIMARY) HYPERTENSION Status: Chronic Current Visit: No Qualifiers: Hypertension type: secondary to endocrine disorders Qualified Code(s): I15.2 - Hypertension secondary to endocrine disorders (3) Type 1 diabetes mellitus SNOMED Code(s): 03561890 ICD Code: E10.9 - TYPE 1 DIABETES MELLITUS WITHOUT COMPLICATIONS Status: Chronic Current Visit: No Qualifiers: Diabetes mellitus complication status: with unspecified complications Qualified Code(s): E10.8 - Type 1 diabetes mellitus with unspecified complications (4) Insulin pump in place SNOMED Code(s): 087888847 ICD Code: Z96.41 - PRESENCE OF INSULIN PUMP (EXTERNAL) (INTERNAL) Status: Chronic Current Visit: No - Patient Summary/Data Hospital Course: Ms. Jamil is an 82-year-old woman who is admitted through the emergency department for management of diabetic ketoacidosis. She has a lifelong history of type 1 diabetes mellitus and usually manages her diabetes with assistance of her and ongoing use of an insulins pump. She was hospitalized at this facility a few days ago with ketoacidosis and underlying urinary tract infection. She was managed with IV insulin infusion and then transitioned back to her insulins pump. Urine culture did grow out resistant Escherichia coli and she was discharged home on Macrodantin. After discharge yesterday blood sugars were moderately elevated from baseline and significantly worse today with glucose levels in the 400 range. She was seen and evaluated the clinic to make sure that her insulin pump was functioning properly. Blood sugars remained elevated despite boluses from the pump as well as subcutaneous insulin. She was sent to the emergency department for further evaluation, blood glucose level was 480 and she had evidence of developing ketoacidosis with increase in her anion gap and decrease in her carbon dioxide level. She reports that she otherwise feels well and denies any other significant symptoms at the present time. On admission she was given IV insulins as well as IV fluids given per diabetic ketoacidosis protocol. Over the next 24 hours the ketoacidosis resolved and her blood sugars came under better control. Electrolytes were also monitored closely and she did develop significant hypokalemia as well as hypomagnesemia. She received oral and IV magnesium and potassium replacement. By the time of discharge her electrolytes were within desired range. She was transitioned back to her insulin pump and blood sugars remained under good control through the rest of her hospital stay. There was some concern that she is developing cognitive impairment with poor short-term memory and maybe had not been managing her insulin pump appropriately especially with bolus doses. Her also reports that she has been consuming alcohol and this may explain some of the elevation in glucose level. Her is going to take over management of insulin pump with bolus doses and she is going to stop all alcohol use. She was seen regularly through the hospital stay by the nurse educator and follow-up appointments have already been arranged. She'll also be scheduled to see her primary care provider within one week. We discussed development of probable cognitive dysfunction and poor memory, neuropsychiatric testing will be scheduled on an outpatient basis for further evaluation. Activity will be as tolerated and she will remain on a consistent carb diet. During her last admission was found to have resistant Escherichia coli urinary tract infection. Follow-up urinalysis obtained during this admission showed clearing of the urine with no evidence of active infection. She completed her course of oral antibiotic therapy while in the hospital. - Patient Instructions Diet: Diabetic Diet Activity: As Tolerated Other/Special Instructions: Set up follow-up appointments with Kobe Horton within one week and nurse educator. Please schedule outpatient neuropsychiatric testing for evaluation of cognitive impairment. - Discharge Plan *PRESCRIPTION DRUG MONITORING PROGRAM REVIEWED*: Not Applicable *COPY OF PRESCRIPTION DRUG MONITORING REPORT IN PATIENT LESTER: Not Applicable Home Medications: Home Meds Aspirin [Kate Chewable Aspirin] 81 mg PO BEDTIME 10/26/13 [History] Insulin Aspart [NovoLOG] 1 unit SUBCUT ASDIRECTED 10/26/13 [History] Levothyroxine Sodium 1 tab PO ACBREAKFAST 10/26/13 [History] Losartan [Cozaar] 1 tab PO BID 10/26/13 [History] levETIRAcetam [Keppra] 500 mg PO BID 10/26/13 [History] Referrals: Jyoti Burnette RN [Registered Nurse] - 06/06/18 11:30 am (Follow up appointments are as scheduled: 06/06/18 @ 11:30 a.m. 06/16/18 @ 1:30 p.m. 06/30/18 @ 1:00 p.m.) Kobe Horton NP [Primary Care Provider] - 06/09/18 1:30 pm - Discharge Summary/Plan Comment DC Time >30 min.: No - Patient Data Vitals - Most Recent: Last Vital Signs Temp 97.5 F 06/02/18 11:31 Pulse 75 06/02/18 11:31 Resp 16 06/02/18 11:31 BP 162/79 H 06/02/18 11:31 Pulse Ox 97 06/02/18 11:31 Weight - Most Recent: 127 lb 13.89 oz I&O - Last 24 hours: Intake & Output 06/01/18 06/02/18 06/02/18 22:59 06:59 14:59 Intake Total 240 120 360 Balance 240 120 360 Lab Results - Last 24 hrs: Laboratory Results - last 24 hr 06/01/18 06/02/18 Range/Units 17:00 06:08 Sodium 132 L (140-148) mmol/L Potassium 3.6 4.4 (3.6-5.2) mmol/L Chloride 100 (100-108) mmol/L Carbon Dioxide 24 (21-32) mmol/L Anion Gap 12.4 (5.0-14.0) mmol/L BUN 4 L (7-18) mg/dL Creatinine 0.5 L (0.6-1.0) mg/dL Est Cr Clr Drug Dosing 64.46 mL/min Estimated GFR (MDRD) > 60 (>60) Glucose 136 H (74-106) mg/dL Calcium 8.2 L (8.5-10.1) mg/dL Magnesium 2.5 H D 1.9 D (1.8-2.4) mg/dL Med Orders - Current: Current Medications Acetaminophen (Tylenol) 650 mg PO Q4H PRN PRN Reason: Pain (Mild 1-3)/fever Aspirin (Aspirin) 81 mg PO BEDTIME HAN Last Admin: 06/01/18 20:36 Dose: 81 mg Dextrose/Water (Dextrose 50% In Water) 50 ml IVPUSH ONETIME PRN PRN Reason: Blood Glucose Last Admin: 06/01/18 01:39 Dose: 50 ml Enoxaparin Sodium (Lovenox) 40 mg SUBCUT QPM [facility] Last Admin: 06/01/18 16:04 Dose: 40 mg Magnesium Sulfate (Magnesium Sulfate 2 Gm In Water 50 Ml) 50 mls @ 25 mls/hr IV ONETIME PRN PRN Reason: low magnesium Last Admin: 05/30/18 18:25 Dose: 25 mls/hr Sodium Chloride (Normal Saline) 2,000 mls @ 500 mls/hr IV .CONTINUOUS PRN PRN Reason: Blood Glucose Last Admin: 05/30/18 20:58 Dose: 500 mls/hr Sodium Phosphate 60 mmole/ (Sodium Chloride) 270 mls @ 62.5 mls/hr IV ONETIME PRN PRN Reason: Low phophorus Magnesium Sulfate 2 gm/ Premix 50 mls @ 25 mls/hr IV Q6H PRN PRN Reason: hypomagnesemia Last Admin: 05/31/18 06:45 Dose: 25 mls/hr Insulin Human Lispro (Humalog) 0 unit SUBCUT ASDIRECTED [facility] Levetiracetam (Keppra) 500 mg PO BID [facility] Last Admin: 06/02/18 08:47 Dose: 500 mg Levothyroxine Sodium (Levothyroxine) 75 mcg PO ACBREAKFAST [facility] Last Admin: 06/02/18 07:35 Dose: 75 mcg Lidocaine HCl (Xylocaine 1%) 2 ml INJECT Q2H PRN PRN Reason: add to kcl Last Admin: 05/31/18 06:53 Dose: 2 ml Losartan Potassium (Cozaar) 50 mg PO BID [facility] Last Admin: 06/02/18 08:48 Dose: 50 mg Magnesium Oxide (Magnesium Oxide) 400 mg PO BID [facility] Last Admin: 06/02/18 08:47 Dose: 400 mg Nitrofurantoin Macrocrystals (Macrobid) 100 mg PO BID [facility] Last Admin: 06/02/18 08:48 Dose: 100 mg Ondansetron HCl (Zofran) 4 mg IV Q4H PRN PRN Reason: Nausea/Vomiting Potassium Chloride (Potassium Chloride Solution) 20 meq PO NOW PRN PRN Reason: Hypokalemia Last Admin: 05/30/18 21:10 Dose: 20 meq Potassium Chloride (Potassium Chloride Solution) 40 meq PO NOW PRN PRN Reason: Hypokalemia Potassium Chloride (Potassium Chloride Solution) 40 meq PO Q2H PRN PRN Reason: Hypokalemia Senna/Docusate Sodium (Senna Plus) 1 tab PO BID PRN PRN Reason: Constipation Sodium Chloride (Saline Flush) 10 ml FLUSH ASDIRECTED PRN PRN Reason: Keep Vein Open Discontinued Medications Enoxaparin Sodium (Lovenox) 40 mg SUBCUT DAILY [facility] Insulin Human Regular 100 unit (/ Sodium Chloride) 100 mls @ 4.76 mls/hr IV TITRATE HAN; Protocol Last Titration: 05/31/18 13:00 Dose: 0.19 units/kg/hr, 9.2 mls/hr Sodium Chloride (Normal Saline) 1,000 mls @ 0 mls/hr IV ASDIRECTED [facility] Dextrose/Sodium Chloride (Dextrose 5%-1/2 Ns) 1,000 mls @ 150 mls/hr IV .CONTINUOUS PRN PRN Reason: Blood Glucose Last Admin: 05/31/18 13:28 Dose: 150 mls/hr Potassium Chloride 20 meq/ (Premix) 100 mls @ 50 mls/hr IV ONETIME ONE Stop: 05/30/18 19:09 Last Admin: 05/30/18 19:32 Dose: Not Given Potassium Chloride 20 meq/ (Premix) 100 mls @ 50 mls/hr IV Q2H [facility] Stop: 05/31/18 01:59 Last Admin: 05/31/18 00:05 Dose: 50 mls/hr Potassium Chloride (Kcl 20 Meq In Water 100 Ml) Confirm Administered Dose 100 mls @ as directed .ROUTE .STK-MED ONE Stop: 05/30/18 21:58 Last Admin: 05/30/18 23:16 Dose: Not Given Potassium Chloride 20 meq/ (Premix) 100 mls @ 50 mls/hr IV Q2H PRN PRN Reason: low K+ Last Admin: 05/31/18 06:54 Dose: 50 mls/hr Potassium Chloride 20 meq/ (Premix) 100 mls @ 50 mls/hr IV Q2H [facility]AN Stop: 06/01/18 10:29 Last Admin: 06/01/18 09:53 Dose: Not Given Potassium Chloride 20 meq/Lidocaine HCl 2 ml/ Sodium Chloride 112 mls @ 56 mls/ hr IV Q2H [facility] Stop: 06/01/18 12:59 Last Admin: 06/01/18 11:20 Dose: 56 mls/hr Magnesium Sulfate 2 gm/ Premix 50 mls @ 25 mls/hr IV Q6H [facility] Stop: 06/01/18 17:59 Last Admin: 06/01/18 16:04 Dose: 25 mls/hr Insulin Human Regular (Humulin R) 12 unit SUBCUT ONETIME ONE Stop: 05/30/18 15:35 Last Admin: 05/31/18 08:34 Dose: Not Given Lidocaine HCl (Xylocaine-Mpf 1%) 2 ml INJECT ONETIME ONE Stop: 05/30/18 21:55 Last Admin: 05/30/18 22:21 Dose: 2 ml Lidocaine HCl (Xylocaine-Mpf 1%) 2 ml INJECT ONETIME ONE Stop: 05/30/18 23:31 Last Admin: 05/31/18 00:06 Dose: 2 ml Potassium Chloride (Klor-Con M20) 40 meq PO ONETIME ONE Stop: 06/01/18 06:31 Last Admin: 06/01/18 06:48 Dose: 40 meq Potassium Chloride (Klor-Con M20) 40 meq PO ONETIME ONE Stop: 06/01/18 18:58 Last Admin: 06/01/18 20:45 Dose: 40 meq - Exam General: Reports: Alert, Cooperative, No Acute Distress Lungs: Reports: Clear to Auscultation, Normal Respiratory Effort Cardiovascular: Reports: Regular Rate, Regular Rhythm, No Murmurs GI/Abdominal Exam: Soft, Non-Tender, No Organomegaly, No Distention
== END 2018-06-02 13:00 | disposition home or self-care (01) | DRG 639 ==
LOC: JP.ED 13:14 → JP.ICU 16:42 → JP.ED 17:13 → JP.2SS 06-01 19:53
PROVIDERS: ADMIT Hospitalist; ATTEND Hospitalist
DX: E10.10 Type 1 diabetes mellitus with ketoacidosis without coma (principal); Z79.4 Long term (current) use of insulin; Z96.41 Presence of insulin pump (external) (internal); I10 Essential (primary) hypertension; G40.909 Epilepsy, unspecified, not intractable, without status epilepticus; E03.9 Hypothyroidism, unspecified; I15.2 Hypertension secondary to endocrine disorders; E87.6 Hypokalemia; E83.42 Hypomagnesemia; Z87.891 Personal history of nicotine dependence; R41.0 Disorientation, unspecified; M19.90 Unspecified osteoarthritis, unspecified site; E78.00 Pure hypercholesterolemia, unspecified; H54.7 Unspecified visual loss; Z79.82 Long term (current) use of aspirin; Z88.0 Allergy status to penicillin; Z88.2 Allergy status to sulfonamides; Z87.440 Personal history of urinary (tract) infections
CPT/HCPCS: 36415; 80053; 82009; 82803; 82962; 85025; 99284; J1815; 80048; 81001; 83735; 84100; 84132; A9270-GY; J1650; J2001; J3475; J3480; J7030

== ENCOUNTER 2018-07-22 17:16 | Inpatient (IN) | payer MEDICARE, BC ==
--- NOTE | 2018-07-22 17:50 | EDM.PDOC ---
ED HPI GENERAL MEDICAL PROBLEM - General Chief Complaint: Diabetic Complaint Stated Complaint: MEDICAL [facility]IA [facility] Time Seen by Provider: 07/22/18 17:45 Source of Information: Reports: Patient History Limitations: Reports: No Limitations - History of Present Illness INITIAL COMMENTS - FREE TEXT/NARRATIVE: pt was at a friends and she got very confused and she passed out. She would not open her eyes or Respond for awhile. The pt was not sizuring. When her husbband got there she had eaten a half of a doonut and her bs was 72. It had not been checked before that. Onset: Today, Sudden Duration: Hour(s): Location: Reports: Head, Other ( probable low bs. ) Associated Symptoms: Reports: Confusion, Diaphoresis, Other (pt passed out completely and she was not responding. ) - Related Data Allergies Allergy/AdvReac Type Severity Reaction Status Date / Time Penicillins Allergy Rash Verified 07/22/18 17:24 Sulfa (Sulfonamide Allergy Joint Pain Verified 07/22/18 17:24 Antibiotics) erythromycin base AdvReac Nausea Verified 07/22/18 17:24 [Erythromycin Base] Home Meds: Home Meds Aspirin [Kate Chewable Aspirin] 81 mg PO BEDTIME 10/26/13 [History] Insulin Aspart [NovoLOG] 1 unit SUBCUT ASDIRECTED 10/26/13 [History] Levothyroxine Sodium 1 tab PO ACBREAKFAST 10/26/13 [History] Losartan [Cozaar] 1 tab PO BID 10/26/13 [History] levETIRAcetam [Keppra] 500 mg PO BID 10/26/13 [History] Insuline Pump DAILY 07/22/18 [History] Past Medical History HEENT History: Reports: Impaired Vision Cardiovascular History: Reports: High Cholesterol, Hypertension Respiratory History: Reports: None Gastrointestinal History: Reports: None Genitourinary History: Reports: None 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: Musculoskeletal History: Reports: Arthritis, Fracture Other Musculoskeletal History: finger Neurological History: Reports: Seizure Psychiatric History: Reports: Depression Endocrine/Metabolic History: Reports: Diabetes, Type I, Hypothyroidism Hematologic History: Reports: None Immunologic History: Reports: None Oncologic (Cancer) History: Reports: None Dermatologic History: Reports: None - Infectious Disease History Infectious Disease History: Reports: Extended Spectrum Beta-Lactamase (ESBL) - Past Surgical History HEENT Surgical History: Reports: None Cardiovascular Surgical History: Reports: None Respiratory Surgical History: Reports: None GI Surgical History: Reports: Appendectomy, Cholecystectomy, Colonoscopy Female Surgical History: Reports: None, Tubal Ligation Endocrine Surgical History: Reports: None Neurological Surgical History: Reports: None Musculoskeletal Surgical History: Reports: None Dermatological Surgical History: Reports: None Social & Family History - Family History Family Medical History: Noncontributory - Tobacco Use Smoking Status *Q: Former Smoker Used Tobacco, but Quit: Yes Month/Year Tobacco Last Used: 25 years - Caffeine Use Caffeine Use: Reports: Coffee - Recreational Drug Use Recreational Drug Use: No ED ROS GENERAL - Review of Systems Review Of Systems: See Below Constitutional: Reports: No Symptoms HEENT: Reports: No Symptoms Respiratory: Reports: No Symptoms Cardiovascular: Reports: No Symptoms Endocrine: Reports: Low Glucose, Other (pt had a probable low bs. She is still feeling confused. The lowest sugar documented was 72. ) GI/Abdominal: Reports: No Symptoms : Reports: No Symptoms Neurological: Reports: Confusion, Other (pt was not responding. ) ED EXAM GENERAL NO PERIP PULSE - Physical Exam Exam: See Below Text/Narrative:: pt arrived with a history of being at a friends and becominmg confused. She did eat a half of a donnut and she still remained unresponsive. Her got there and her bs was 72. Exam Limited By: No Limitations General Appearance: Alert, Anxious, Other (pt did become more alert in the ambulance and her bs was 119. pupils are equal and reactive. ) Ears: Normal TMs Nose: Normal Inspection Throat/Mouth: Normal Inspection Head: Atraumatic Neck: Normal Inspection Respiratory/Chest: No Respiratory Distress Cardiovascular: Regular Rate, Rhythm GI/Abdominal: Soft, Non-Tender (Female) Exam: Deferred Rectal (Female) Exam: Deferred Back Exam: Normal Inspection Extremities: Normal Inspection Neurological: Alert Course - Vital Signs Last Recorded V/S: Last Vital Signs Temp 36.7 C 07/23/18 09:47 Pulse 90 07/23/18 09:47 Resp 18 07/23/18 09:47 BP 143/50 H 07/23/18 09:47 Pulse Ox 99 07/23/18 09:47 - Orders/Labs/Meds Labs: Laboratory Tests 07/22/18 07/22/18 07/22/18 Range/Units 17:27 17:27 17:27 WBC 7.0 (4.5-11.0) K/uL RBC 4.47 (3.30-5.50) M/uL Hgb 14.5 (12.0-15.0) g/dL Hct 44.0 (36.0-48.0) % MCV 98 (80-98) fL MCH 32 H (27-31) pg MCHC 33 (32-36) % Plt Count 315 (150-400) K/uL Neut % (Auto) 48 (36-66) % Lymph % (Auto) 40 (24-44) % [place] % (Auto) 8 H (2-6) % Eos % (Auto) 3 (2-4) % Baso % (Auto) 1 (0-1) % VBG pH (7.350-7.450) Sodium 136 L (140-148) mmol/L Potassium 3.5 L (3.6-5.2) mmol/L Chloride 99 L (100-108) mmol/L Carbon Dioxide 20 L (21-32) mmol/L Anion Gap 20.5 H (5.0-14.0) mmol/L BUN 7 D (7-18) mg/dL Creatinine 0.7 (0.6-1.0) mg/dL Est Cr Clr Drug Dosing 45.90 mL/min Estimated GFR (MDRD) > 60 (>60) Glucose 111 H (74-106) mg/dL Lactic Acid (0.4-2.0) mmol/L Calcium 8.8 (8.5-10.1) mg/dL Total Bilirubin 0.3 D (0.2-1.0) mg/dL AST 25 D (15-37) U/L ALT 20 (12-78) U/L Alkaline Phosphatase 120 H (46-116) U/L Troponin I 0.025 (0.000-0.056) ng/mL Total Protein 7.2 (6.4-8.2) g/dL Albumin 3.7 (3.4-5.0) g/dL Globulin 3.5 (2.3-3.5) g/dL Albumin/Globulin Ratio 1.1 L (1.2-2.2) Urine Color Urine Appearance Urine pH (4.5-8.0) Ur Specific [place] (1.008-1.030) Urine Protein (NEGATIVE) mg/dL Urine Glucose (UA) (NEGATIVE) mg/dL Urine Ketones (NEGATIVE) mg/dL Urine Occult Blood (NEGATIVE) Urine Nitrite (NEGATIVE) Urine Bilirubin (NEGATIVE) Urine Urobilinogen (NORMAL) mg/dL Ur Leukocyte Esterase (NEGATIVE) Urine RBC (0-5) Urine WBC (0-5) Ur Epithelial Cells Amorphous Sediment Urine Bacteria Urine Mucus Urine Other 07/22/18 07/22/18 07/22/18 Range/Units 17:32 17:44 18:24 WBC (4.5-11.0) K/uL RBC (3.30-5.50) M/uL Hgb (12.0-15.0) g/dL Hct (36.0-48.0) % MCV (80-98) fL MCH (27-31) pg MCHC (32-36) % Plt Count (150-400) K/uL Neut % (Auto) (36-66) % Lymph % (Auto) (24-44) % [place] % (Auto) (2-6) % Eos % (Auto) (2-4) % Baso % (Auto) (0-1) % VBG pH 7.398 (7.350-7.450) Sodium (140-148) mmol/L Potassium (3.6-5.2) mmol/L Chloride (100-108) mmol/L Carbon Dioxide (21-32) mmol/L Anion Gap (5.0-14.0) mmol/L BUN (7-18) mg/dL Creatinine (0.6-1.0) mg/dL Est Cr Clr Drug Dosing mL/min Estimated GFR (MDRD) (>60) Glucose (74-106) mg/dL Lactic Acid 9.3 H (0.4-2.0) mmol/L Calcium (8.5-10.1) mg/dL Total Bilirubin (0.2-1.0) mg/dL AST (15-37) U/L ALT (12-78) U/L Alkaline Phosphatase (46-116) U/L Troponin I (0.000-0.056) ng/mL Total Protein (6.4-8.2) g/dL Albumin (3.4-5.0) g/dL Globulin (2.3-3.5) g/dL Albumin/Globulin Ratio (1.2-2.2) Urine Color Yellow Urine Appearance Slightly cloudy Urine pH 6.0 (4.5-8.0) Ur Specific [place] 1.015 (1.008-1.030) Urine Protein Trace (NEGATIVE) mg/dL Urine Glucose (UA) Normal (NEGATIVE) mg/dL Urine Ketones Negative (NEGATIVE) mg/dL Urine Occult Blood Trace (NEGATIVE) Urine Nitrite Positive H (NEGATIVE) Urine Bilirubin Negative (NEGATIVE) Urine Urobilinogen Normal (NORMAL) mg/dL Ur Leukocyte Esterase Moderate (NEGATIVE) Urine RBC 0-5 (0-5) Urine WBC 10-20 H (0-5) Ur Epithelial Cells Few Amorphous Sediment Not seen Urine Bacteria Many Urine Mucus Not seen Urine Other Meds: Medications Discontinued Medications Generic Name Dose Route Start Last Admin Trade Name Freq PRN Reason Stop Dose Admin Acetaminophen 650 mg 07/22/18 20:27 Tylenol PO Q4H PRN Pain (Mild 1-3)/fever Aspirin 81 mg 07/22/18 21:00 07/22/18 21:15 Halfprin PO Not Given BEDTIME HAN Sodium Chloride 1,000 mls @ 999 mls/hr 07/22/18 18:15 07/22/18 18:39 Normal Saline IV 999 mls/hr ASDIRECTED HAN Administration Sodium Chloride 1,000 mls @ 999 mls/hr 07/22/18 19:00 07/22/18 19:06 Normal Saline IV 999 mls/hr ASDIRECTED HAN Administration Ceftriaxone Sodium 1 gm/ 50 mls @ 100 mls/hr 07/22/18 18:54 07/22/18 19:03 Sodium Chloride IV 07/22/18 19:23 100 mls/hr ONETIME ONE Administration Sodium Chloride 1,000 mls @ 125 mls/hr 07/22/18 20:27 07/23/18 04:39 Normal Saline IV 125 mls/hr ASDIRECTED HAN Administration Ceftriaxone Sodium 1 gm/ 50 mls @ 100 mls/hr 07/23/18 18:00 Sodium Chloride IV Q24H HAN Insulin Human Lispro 0 unit 07/22/18 20:27 07/23/18 07:31 Humalog SUBCUT 4 units QIDACANDBED HAN Administration Protocol Insulin Human Lispro 8 unit 07/23/18 09:33 07/23/18 09:35 Humalog SUBCUT 07/23/18 09:34 8 units ONETIME ONE Administration Levetiracetam 500 mg 07/22/18 21:00 07/23/18 08:23 Keppra PO 500 mg BID HAN Administration Levothyroxine Sodium 75 mcg 07/23/18 07:30 07/23/18 08:23 Levothyroxine PO 75 mcg ACBREAKFAST HAN Administration Magnesium Hydroxide 30 ml 07/22/18 20:27 Milk Of Magnesia PO Q12H PRN Constipation Ondansetron HCl 4 mg 07/22/18 20:27 Zofran Odt PO Q6H PRN Nausea able to take PO Senna/Docusate Sodium 1 tab 07/22/18 20:27 Senna Plus PO BID PRN Constipation - Re-Assessments/Exams Free Text/Narrative Re-Assessment/Exam: 07/22/18 18:59 cat scan of the head was neg. Her urine was infected. Her lactic acid is greater than 9. Her wbc is wnl. Departure - Departure Time of Disposition: 19:01 Disposition: Home, Self-Care 01 Condition: Fair Clinical Impression: UTI (urinary tract infection) Sepsis Qualifiers: Sepsis type: sepsis due to unspecified organism Qualified Code(s): A41.9 - Sepsis, unspecified organism - Discharge Information
[2018-07-22] MEDS ORDERED: Sodium Chloride 0.9% 1,000 ML IV SCH ×2 (18:15→19:00)
--- NOTE | 2018-07-22 18:47 | CRLCT ---
INDICATION: Confusion TECHNIQUE: CT Head without contrast. COMPARISON: MRI brain 01/04/2009 FINDINGS: CSF spaces: Symmetric prominence of the ventricles and sulci is consistent with generalized atrophy. No hydrocephalus. Brain parenchyma: Periventricular and subcortical white matter low attenuation is nonspecific but most consistent with changes of small-vessel ischemic disease. Old lacunar infarcts in the basal ganglia. No sign of mass, hemorrhage, or midline shift. There is intracranial atherosclerotic calcification. Skull base and calvarium: No skull fracture. Mucosal thickening and patchy opacification of multiple ethmoid air cells, greater on the right. Frontal sinuses clear. Mastoid air cells are well-aerated. IMPRESSION: 1. No acute intracranial abnormality. 2. Generalized atrophy. 3. Nonspecific white matter changes most consistent with small vessel ischemic disease. Old lacunar infarcts in the basal ganglia. Dictated by Abdirahman Eaton MD @ 07/22/2018 6:45:09 PM Please note that all CT scans at this facility use dose modulation, iterative reconstruction, and/or weight-based dosing when appropriate to reduce radiation dose to as low as reasonably achievable. Dictated by: Abdirahman Eaton MD @ 07/22/2018 18:45:17 (Electronically Signed)
[2018-07-22] MEDS ORDERED: cefTRIAXone 1 GM in Sodium Chloride 0.9% 50 ML IV ONE (18:54)
--- NOTE | 2018-07-22 19:54 | PCM.HP ---
H&P History of Present Illness - General Date of Service: 07/22/18 Admit Problem/Dx: Admission Diagnosis/Problem Admission Diagnosis/Problem Acute cystitis Source of Information: Patient, Provider History Limitations: Reports: Altered Mental Status - History of Present Illness Initial Comments - Free Text/Narative: Gaye presents to the emergency room today after an episode of syncope. She has no recall of the events during the day or around the time of the syncope. History is gathered from emergency room personnel and first responders. Per report she was at some friends this afternoon which is not unusual on Wednesday. She thinks that she's been feeling okay during the day. While she was at her friend's house she allegedly passed out and was unresponsive for several minutes. An ambulance was summoned. By the time they arrived she had aroused some and was eating a doughnut. Her blood sugar when first checked was 72 and then it was 119 in the ambulance. She has slowly come around but remains fairly confused. She tells me that she feels cold all over and tired but otherwise feels okay. She does not feel short of breath. She does not have chest pain or abdominal pain. She does not feel nauseated. She simply says I have no idea what happened today. She doesn't think she's had any difficulty with increased frequency or urgency. No concerns about infection that she is aware of. Workup in the emergency room revealed evidence for urinary tract infection and lactic acid returned quite high at 9. She has mild tachycardia but blood pressure is normal at this time. Blood sugar has improved since arrival. With the lactic acidosis him a confusion and tachycardia she is presumed to have sepsis. She is completing her 2 L bolus and has received a dose of ceftriaxone in the emergency room. She will be admitted for further management. - Related Data Allergies/Adverse Reactions: Allergies Allergy/AdvReac Type Severity Reaction Status Date / Time Penicillins Allergy Rash Verified 07/22/18 17:24 Sulfa (Sulfonamide Allergy Joint Pain Verified 07/22/18 17:24 Antibiotics) erythromycin base AdvReac Nausea Verified 07/22/18 17:24 [Erythromycin Base] Home Medications: Home Meds Aspirin [Kate Chewable Aspirin] 81 mg PO BEDTIME 10/26/13 [History] Insulin Aspart [NovoLOG] 1 unit SUBCUT ASDIRECTED 10/26/13 [History] Levothyroxine Sodium 1 tab PO ACBREAKFAST 10/26/13 [History] Losartan [Cozaar] 1 tab PO BID 10/26/13 [History] levETIRAcetam [Keppra] 500 mg PO BID 10/26/13 [History] Insuline Pump DAILY 07/22/18 [History] Past Medical History HEENT History: Reports: Impaired Vision Cardiovascular History: Reports: High Cholesterol, Hypertension Respiratory History: Reports: None Gastrointestinal History: Reports: None Genitourinary History: Reports: None [employer] History: Reports: Musculoskeletal History: Reports: Arthritis, Fracture Other Musculoskeletal History: finger Neurological History: Reports: Seizure Psychiatric History: Reports: Depression Endocrine/Metabolic History: Reports: Diabetes, Type I, Hypothyroidism Hematologic History: Reports: None Immunologic History: Reports: None Oncologic (Cancer) History: Reports: None Dermatologic History: Reports: None - Infectious Disease History Infectious Disease History: Reports: Extended Spectrum Beta-Lactamase (ESBL) - Past Surgical History HEENT Surgical History: Reports: None Cardiovascular Surgical History: Reports: None Respiratory Surgical History: Reports: None GI Surgical History: Reports: Appendectomy, Cholecystectomy, Colonoscopy Female Surgical History: Reports: None, Tubal Ligation Endocrine Surgical History: Reports: None Neurological Surgical History: Reports: None Musculoskeletal Surgical History: Reports: None Dermatological Surgical History: Reports: None Social & Family History - Family History Family Medical History: Noncontributory - Tobacco Use Smoking Status *Q: Former Smoker Used Tobacco, but Quit: Yes Month/Year Tobacco Last Used: 25 years - Caffeine Use Caffeine Use: Reports: Coffee - Recreational Drug Use Recreational Drug Use: No H&P Review of Systems - Review of Systems: Review Of Systems: See Below Free Text/Narrative: A complete 12 point review of systems was obtained. Pertinent positives and negatives are noted in the history of present illness. All other systems were reviewed and were negative except as noted. Patient did respond to all questions but has difficulty with recalling anything other than how she feels as of right now. Exam - Exam Exam: See Below - Vital Signs Vital Signs: Last Vital Signs Temp 35.9 C 07/22/18 19:19 Pulse 86 07/22/18 19:19 Resp 19 07/22/18 19:19 BP 133/79 07/22/18 19:19 Pulse Ox 98 07/22/18 19:19 Weight: 45.359 kg - Exam Quality Assessment: No: Supplemental Oxygen General: Alert, Cooperative. No: Oriented, Mild Distress HEENT: Conjunctiva Clear, Mucosa Moist & [place]. No: Scleral Icterus Neck: Supple, Trachea Midline. No: Lymphadenopathy Lungs: Clear to Auscultation, Normal Respiratory Effort Cardiovascular: Regular Rate, Regular Rhythm. No: Systolic Murmur GI/Abdominal Exam: Normal Bowel Sounds, Soft, Non-Tender, No Distention Back Exam: Full Range of Motion. No: Paraspinal Tenderness Extremities: No Pedal Edema. No: Increased Warmth Skin: Warm, Dry, Other (several areas of healed excoriation across upper and lower back. No erythema or warmth. ) Neuro Extensive - Mental Status: Alert, Nl Response to Commands. No: Oriented x3 Neuro Extensive - Motor, Sensory, Reflexes: No: Abnormal Reflexes, Abnormal Motor, Tremor Psychiatric: Alert, Normal Affect - Patient Data Lab Results Last 24 hrs: Laboratory Results - last 24 hr 07/22/18 07/22/18 07/22/18 Range/Units 17:27 17:27 17:27 WBC 7.0 (4.5-11.0) K/uL RBC 4.47 (3.30-5.50) M/uL Hgb 14.5 (12.0-15.0) g/dL Hct 44.0 (36.0-48.0) % MCV 98 (80-98) fL MCH 32 H (27-31) pg MCHC 33 (32-36) % Plt Count 315 (150-400) K/uL Neut % (Auto) 48 (36-66) % Lymph % (Auto) 40 (24-44) % [place] % (Auto) 8 H (2-6) % Eos % (Auto) 3 (2-4) % Baso % (Auto) 1 (0-1) % VBG pH (7.350-7.450) Sodium 136 L (140-148) mmol/L Potassium 3.5 L (3.6-5.2) mmol/L Chloride 99 L (100-108) mmol/L Carbon Dioxide 20 L (21-32) mmol/L Anion Gap 20.5 H (5.0-14.0) mmol/L BUN 7 D (7-18) mg/dL Creatinine 0.7 (0.6-1.0) mg/dL Est Cr Clr Drug Dosing 45.90 mL/min Estimated GFR (MDRD) > 60 (>60) Glucose 111 H (74-106) mg/dL Lactic Acid (0.4-2.0) mmol/L Calcium 8.8 (8.5-10.1) mg/dL Total Bilirubin 0.3 D (0.2-1.0) mg/dL AST 25 D (15-37) U/L ALT 20 (12-78) U/L Alkaline Phosphatase 120 H (46-116) U/L Troponin I 0.025 (0.000-0.056) ng/mL Total Protein 7.2 (6.4-8.2) g/dL Albumin 3.7 (3.4-5.0) g/dL Globulin 3.5 (2.3-3.5) g/dL Albumin/Globulin Ratio 1.1 L (1.2-2.2) Urine Color Urine Appearance Urine pH (4.5-8.0) Ur Specific Sandwich (1.008-1.030) Urine Protein (NEGATIVE) mg/dL Urine Glucose (UA) (NEGATIVE) mg/dL Urine Ketones (NEGATIVE) mg/dL Urine Occult Blood (NEGATIVE) Urine Nitrite (NEGATIVE) Urine Bilirubin (NEGATIVE) Urine Urobilinogen (NORMAL) mg/dL Ur Leukocyte Esterase (NEGATIVE) Urine RBC (0-5) Urine WBC (0-5) Ur Epithelial Cells Amorphous Sediment Urine Bacteria Urine Mucus Urine Other 07/22/18 07/22/18 07/22/18 Range/Units 17:32 17:44 18:24 WBC (4.5-11.0) K/uL RBC (3.30-5.50) M/uL Hgb (12.0-15.0) g/dL Hct (36.0-48.0) % MCV (80-98) fL MCH (27-31) pg MCHC (32-36) % Plt Count (150-400) K/uL Neut % (Auto) (36-66) % Lymph % (Auto) (24-44) % [place] % (Auto) (2-6) % Eos % (Auto) (2-4) % Baso % (Auto) (0-1) % VBG pH 7.398 (7.350-7.450) Sodium (140-148) mmol/L Potassium (3.6-5.2) mmol/L Chloride (100-108) mmol/L Carbon Dioxide (21-32) mmol/L Anion Gap (5.0-14.0) mmol/L BUN (7-18) mg/dL Creatinine (0.6-1.0) mg/dL Est Cr Clr Drug Dosing mL/min Estimated GFR (MDRD) (>60) Glucose (74-106) mg/dL Lactic Acid 9.3 H (0.4-2.0) mmol/L Calcium (8.5-10.1) mg/dL Total Bilirubin (0.2-1.0) mg/dL AST (15-37) U/L ALT (12-78) U/L Alkaline Phosphatase (46-116) U/L Troponin I (0.000-0.056) ng/mL Total Protein (6.4-8.2) g/dL Albumin (3.4-5.0) g/dL Globulin (2.3-3.5) g/dL Albumin/Globulin Ratio (1.2-2.2) Urine Color Yellow Urine Appearance Slightly cloudy Urine pH 6.0 (4.5-8.0) Ur Specific [place] 1.015 (1.008-1.030) Urine Protein Trace (NEGATIVE) mg/dL Urine Glucose (UA) Normal (NEGATIVE) mg/dL Urine Ketones Negative (NEGATIVE) mg/dL Urine Occult Blood Trace (NEGATIVE) Urine Nitrite Positive H (NEGATIVE) Urine Bilirubin Negative (NEGATIVE) Urine Urobilinogen Normal (NORMAL) mg/dL Ur Leukocyte Esterase Moderate (NEGATIVE) Urine RBC 0-5 (0-5) Urine WBC 10-20 H (0-5) Ur Epithelial Cells Few Amorphous Sediment Not seen Urine Bacteria Many Urine Mucus Not seen Urine Other Result Diagrams: 07/22/18 17:27 07/22/18 17:27 Imaging Impressions Last 24 hrs: Head CT - images personally reviewed - no mass, bleed or stroke. Normal head CT *Q Meaningful Use (ADM) - VTE Risk Assess *Q Each Risk Factor Represents 1 Point: None Total Score 1 Point Risk Factors: 0 Each Risk Factor Represents 2 Points: None Total Score 2 Point Risk Factors: 0 Each Risk Factor Represents 3 Points: Age 75 Years or Greater Total Score 3 Point Risk Factors: 3 Each Risk Factor Represents 5 Points: None Total Score 5 Point Risk Factors: 0 Venous Thromboembolism Risk Factor Score *Q: 3 - Problem List (1) Acute cystitis SNOMED Code(s): 89492052 ICD Code: N30.00 - ACUTE CYSTITIS WITHOUT HEMATURIA Status: Acute Current Visit: No Qualifiers: Hematuria presence: without hematuria Qualified Code(s): N30.00 - Acute cystitis without hematuria (2) Sepsis SNOMED Code(s): 40540946 ICD Code: A41.9 - SEPSIS, UNSPECIFIED ORGANISM Status: Acute Current Visit: Yes Qualifiers: Sepsis type: sepsis due to unspecified organism Qualified Code(s): A41.9 - Sepsis, unspecified organism (3) Syncope and collapse SNOMED Code(s): 089670831 ICD Code: R55 - SYNCOPE AND COLLAPSE Status: Acute Current Visit: Yes (4) Seizure disorder SNOMED Code(s): 480668477 ICD Code: G40.909 - EPILEPSY, UNSP, NOT INTRACTABLE, WITHOUT STATUS EPILEPTICUS Status: Chronic Current Visit: No (5) Type 1 diabetes mellitus SNOMED Code(s): 58484846 ICD Code: E10.9 - TYPE 1 DIABETES MELLITUS WITHOUT COMPLICATIONS Status: Chronic Current Visit: No Qualifiers: Diabetes mellitus complication status: with unspecified complications Qualified Code(s): E10.8 - Type 1 diabetes mellitus with unspecified complications Problem List Initiated/Reviewed/Updated: Yes Orders Last 24hrs: Active Orders 24 hr Category Date Time Status Patient Status Manage Transfer [TRANSFER] Routine ADT 07/22/18 19:45 Active EKG Documentation Completion [RC] ASDIRECTED Care 07/22/18 17:28 Active CULTURE BLOOD [BC] Urgent Lab 07/22/18 18:53 Received CULTURE BLOOD [BC] Urgent Lab 07/22/18 18:53 Received CULTURE URINE [RM] Stat Lab 07/22/18 18:25 Received Sodium Chloride 0.9% [Normal Saline] 1,000 ml Med 07/22/18 18:15 Active IV ASDIRECTED Sodium Chloride 0.9% [Normal Saline] 1,000 ml Med 07/22/18 19:00 Active IV ASDIRECTED Blood Culture x2 Reflex Set [OM.PC] Urgent Oth 07/22/18 18:53 Ordered Resuscitation Status Routine Resus Stat 07/22/18 19:46 Ordered EKG 12 Lead [EK] Routine Ther 07/22/18 17:28 Ordered Medication Orders Sodium Chloride (Normal Saline) 1,000 mls @ 999 mls/hr IV ASDIRECTED [facility] Last Admin: 07/22/18 18:39 Dose: 999 mls/hr Sodium Chloride (Normal Saline) 1,000 mls @ 999 mls/hr IV ASDIRECTED [facility] Last Admin: 07/22/18 19:06 Dose: 999 mls/hr Assessment/Plan Comment:: ASSESSMENT AND PLAN - Acute cystitis with sepsis - likely cause for syncopal event and could be contributing to the hypoglycemia. She has tachycardia, lactic acidosis and confusion. She will be completing her 30 mL/kg bolus shortly and has received antibiotics. Cultures have been obtained. -Continue fluids throughout the night -Repeat lactic acid in 3 hours -Continue ceftriaxone -Follow-up cultures -Telemetry Syncope and collapse - Probably multifactorial with her infection as well as presumed hypoglycemia. Blood sugar has improved. Patient is coming around the remains confused. Vital signs are stable after initial resuscitation. -Cardiac monitoring -Treat infection as above Insulin-dependent diabetes mellitus - Has been fairly well controlled by history other than when she has an infection. She is too confused to safely run her insulin pump tonight. -Disconnect insulin pump -Low-dose sliding scale insulin until she is more alert in the morning Essential hypertension - blood pressures normal at this time but she is at risk for developing hypotension with her infection and sepsis. -Hold antihypertensive, reassess in the morning Maintenance issues - - DVT prophylaxis - mechanical - GI prophylaxis - not indicated - Nutrition - consistent carbohydrate - Mckeon catheter - not indicated CODE STATUS - full code Admission justification - This patient will be admitted for inpatient services and is medically appropriate meeting medical necessity for inpatient admission as outlined in my documentation. I reasonably expect the patient will require inpatient services that span a period time over 2 midnights. I reasonably expect this patient to be discharged or transferred within 96 hours after admission to the [facility]. Disposition - I would anticipate discharge home after the hospital stay Primary care physician - Kobe Toure M.D.
[2018-07-22] MEDS ORDERED: Magnesium Hydroxide 400 MG/5 ML Susp 30 ML Cup PO PRN (20:27)
[2018-07-22] MEDS ORDERED: Acetaminophen 325 MG Tab PO PRN (20:27)
[2018-07-22] MEDS ORDERED: Ondansetron 4 MG Tab.DIS PO PRN (20:27)
[2018-07-22] MEDS: Sodium Chloride 0.9% 1,000 ML IV SCH (20:42)
[2018-07-22] MEDS: Insulin Lispro 100 Unit/ML 3 ML KwikPen SUBCUT SCH (20:47)
[2018-07-22] MEDS ORDERED: Aspirin 81 MG Tab.EC PO SCH (21:00)
[2018-07-22] MEDS: levETIRAcetam 250 MG Tab PO SCH (21:15)
[2018-07-23] MEDS: Sodium Chloride 0.9% 1,000 ML IV SCH (04:39)
[2018-07-23] MEDS ORDERED: Levothyroxine 25 MCG Tab PO SCH (07:30)
[2018-07-23] MEDS: Insulin Lispro 100 Unit/ML 3 ML KwikPen SUBCUT SCH (07:31)
[2018-07-23] MEDS: levETIRAcetam 250 MG Tab PO SCH (08:23)
[2018-07-23] MEDS ORDERED: Insulin Lispro 100 Unit/ML 3 ML KwikPen SUBCUT ONE (09:33)
--- NOTE | 2018-07-23 09:39 | PCM.DCSUM1 ---
Discharge Summary - Hospital Course Brief History: 82-year-old female with history of insulin-dependent type 1 diabetes mellitus, well-controlled seizure disorder and acquired hypothyroidism who presented with syncope. She was admitted for management of presumed urinary tract infection and hypoglycemia leading to a syncopal episode. Diagnosis: Stroke: No - Discharge Data Discharge Date: 07/23/18 Discharge Disposition: DC/Tfer to [facility] Condition: Stable - Discharge Diagnosis/Problem(s) (1) Acute cystitis SNOMED Code(s): 82409492 ICD Code: N30.00 - ACUTE CYSTITIS WITHOUT HEMATURIA Status: Acute Current Visit: No Qualifiers: Hematuria presence: without hematuria Qualified Code(s): N30.00 - Acute cystitis without hematuria (2) Sepsis SNOMED Code(s): 20512608 ICD Code: A41.9 - SEPSIS, UNSPECIFIED ORGANISM Status: Acute Current Visit: Yes Qualifiers: Sepsis type: sepsis due to unspecified organism Qualified Code(s): A41.9 - Sepsis, unspecified organism (3) Syncope and collapse SNOMED Code(s): 350461607 ICD Code: R55 - SYNCOPE AND COLLAPSE Status: Acute Current Visit: Yes (4) Seizure disorder SNOMED Code(s): 230036168 ICD Code: G40.909 - EPILEPSY, UNSP, NOT INTRACTABLE, WITHOUT STATUS EPILEPTICUS Status: Chronic Current Visit: No (5) Type 1 diabetes mellitus SNOMED Code(s): 01836433 ICD Code: E10.9 - TYPE 1 DIABETES MELLITUS WITHOUT COMPLICATIONS Status: Chronic Current Visit: No Qualifiers: Diabetes mellitus complication status: with unspecified complications Qualified Code(s): E10.8 - Type 1 diabetes mellitus with unspecified complications (6) NSTEMI (non-ST elevated myocardial infarction) SNOMED Code(s): 24074586 ICD Code: I21.4 - NON-ST ELEVATION (NSTEMI) MYOCARDIAL INFARCTION Status: Acute Current Visit: Yes (7) Symptomatic bradycardia SNOMED Code(s): 93642367, 593275103 ICD Code: R00.1 - BRADYCARDIA, UNSPECIFIED Status: Acute Current Visit: Yes - Patient Summary/Data Labs Pending at D/C: final results of urine and blood cultures which are negative at the time of discharge but were collected less than 24 hours ago. Hospital Course: Gaye presented to the emergency room by ambulance after a syncopal episode at some friend's house. They thought it was secondary to hypoglycemia and she did seem to be coming around after getting some sugar on board. She had an extensive workup in the emergency room including unremarkable CBC, BMP with mild hypokalemia and anion gap metabolic acidosis with lactic acid of 9. Kidney function was normal. Initial troponin was normal. Urine sample was strongly suggestive of infection with many bacteria, moderate WBCs and positive nitrites. Because of the elevated lactic acid she did receive the sepsis protocol with a 30 mL/kg bolus and she received 1 g of IV ceftriaxone. blood and urine cultures were obtained. She was confused but otherwise feeling better. Vital signs were stable with borderline tachycardia and stable blood pressure. She was admitted to the telemetry unit for further treatment. Overnight following admission she had episodes of dizziness as well as vomiting. At the same time as these episodes telemetry monitoring noted episodes of bradycardia with a drop in her heart rate from the 80-90 range down to the 30s. Most of these appear to be a type I Mob[place] block. She had multiple of these episodes overnight. We did check a troponin in the middle of the night which was 0.2. Repeat troponin early this morning was 0.14. EKG was obtained but did not suggest acute ischemia. She has had multiple episodes overnight though none for the past couple of hours. Given the concern for non-ST elevation myocardial infarction and arrhythmia I did contact [facility] in [place]. The hospitalist and cardiology services were in agreement that the patient could be transferred for further evaluation including possibly an angiogram and possibly a pacemaker. Benefits of transfer outweigh the risks at this point. Her urine culture still pending at this time with results likely available either tomorrow, Wednesday, or possibly on Wednesday. She would be due for her next dose of ceftriaxone at about 1900 today. - Patient Instructions Diet: NPO Activity: Bedrest Other/Special Instructions: Transfer to [facility] in [place]. -Dr Hdz accepting. -Dr Menon consulting - Discharge Plan *PRESCRIPTION DRUG MONITORING PROGRAM REVIEWED*: Not Applicable *COPY OF PRESCRIPTION DRUG MONITORING REPORT IN PATIENT LESTER: Not Applicable Home Medications: Home Meds Aspirin [Kate Chewable Aspirin] 81 mg PO BEDTIME 10/26/13 [History] Insulin Aspart [NovoLOG] 1 unit SUBCUT ASDIRECTED 10/26/13 [History] Levothyroxine Sodium 1 tab PO ACBREAKFAST 10/26/13 [History] Losartan [Cozaar] 1 tab PO BID 10/26/13 [History] levETIRAcetam [Keppra] 500 mg PO BID 10/26/13 [History] Insuline Pump DAILY 07/22/18 [History] Oxygen Therapy Mode: Room Air Patient Handouts: Bradycardia, Adult Referrals: Kobe Horton, [employer] TECHNICIAN [Primary Care Provider] - - Discharge Summary/Plan Comment DC Time >30 min.: Yes (60 - transfer to acute Hospital) - Patient Data Vitals - Most Recent: Last Vital Signs Temp 36.5 C 07/23/18 07:34 Pulse 91 07/23/18 07:34 Resp 18 07/23/18 07:34 BP 140/60 07/23/18 07:34 Pulse Ox 97 07/23/18 07:34 Weight - Most Recent: 54.159 kg I&O - Last 24 hours: Intake & Output 07/22/18 07/23/18 07/23/18 22:59 06:59 14:59 Intake Total 1412 Output Total 800 1900 300 Balance -800 -488 -300 Lab Results - Last 24 hrs: Laboratory Results - last 24 hr 07/22/18 07/22/18 07/22/18 Range/Units 17:27 17:27 17:27 WBC 7.0 (4.5-11.0) K/uL RBC 4.47 (3.30-5.50) M/uL Hgb 14.5 (12.0-15.0) g/dL Hct 44.0 (36.0-48.0) % MCV 98 (80-98) fL MCH 32 H (27-31) pg MCHC 33 (32-36) % Plt Count 315 (150-400) K/uL Neut % (Auto) 48 (36-66) % Lymph % (Auto) 40 (24-44) % [place] % (Auto) 8 H (2-6) % Eos % (Auto) 3 (2-4) % Baso % (Auto) 1 (0-1) % VBG pH (7.350-7.450) Sodium 136 L (140-148) mmol/L Potassium 3.5 L (3.6-5.2) mmol/L Chloride 99 L (100-108) mmol/L Carbon Dioxide 20 L (21-32) mmol/L Anion Gap 20.5 H (5.0-14.0) mmol/L BUN 7 D (7-18) mg/dL Creatinine 0.7 (0.6-1.0) mg/dL Est Cr Clr Drug Dosing 45.90 mL/min Estimated GFR (MDRD) > 60 (>60) Glucose 111 H (74-106) mg/dL Lactic Acid (0.4-2.0) mmol/L Calcium 8.8 (8.5-10.1) mg/dL Total Bilirubin 0.3 D (0.2-1.0) mg/dL AST 25 D (15-37) U/L ALT 20 (12-78) U/L Alkaline Phosphatase 120 H (46-116) U/L Troponin I 0.025 (0.000-0.056) ng/mL Total Protein 7.2 (6.4-8.2) g/dL Albumin 3.7 (3.4-5.0) g/dL Globulin 3.5 (2.3-3.5) g/dL Albumin/Globulin Ratio 1.1 L (1.2-2.2) TSH, Ultra Sensitive (0.358-3.740) uIU/mL Urine Color Urine Appearance Urine pH (4.5-8.0) Ur Specific [place] (1.008-1.030) Urine Protein (NEGATIVE) mg/dL Urine Glucose (UA) (NEGATIVE) mg/dL Urine Ketones (NEGATIVE) mg/dL Urine Occult Blood (NEGATIVE) Urine Nitrite (NEGATIVE) Urine Bilirubin (NEGATIVE) Urine Urobilinogen (NORMAL) mg/dL Ur Leukocyte Esterase (NEGATIVE) Urine RBC (0-5) Urine WBC (0-5) Ur Epithelial Cells Amorphous Sediment Urine Bacteria Urine Mucus Urine Other 07/22/18 07/22/18 07/22/18 Range/Units 17:32 17:44 18:24 WBC (4.5-11.0) K/uL RBC (3.30-5.50) M/uL Hgb (12.0-15.0) g/dL Hct (36.0-48.0) % MCV (80-98) fL MCH (27-31) pg MCHC (32-36) % Plt Count (150-400) K/uL Neut % (Auto) (36-66) % Lymph % (Auto) (24-44) % [place] % (Auto) (2-6) % Eos % (Auto) (2-4) % Baso % (Auto) (0-1) % VBG pH 7.398 (7.350-7.450) Sodium (140-148) mmol/L Potassium (3.6-5.2) mmol/L Chloride (100-108) mmol/L Carbon Dioxide (21-32) mmol/L Anion Gap (5.0-14.0) mmol/L BUN (7-18) mg/dL Creatinine (0.6-1.0) mg/dL Est Cr Clr Drug Dosing mL/min Estimated GFR (MDRD) (>60) Glucose (74-106) mg/dL Lactic Acid 9.3 H (0.4-2.0) mmol/L Calcium (8.5-10.1) mg/dL Total Bilirubin (0.2-1.0) mg/dL AST (15-37) U/L ALT (12-78) U/L Alkaline Phosphatase (46-116) U/L Troponin I (0.000-0.056) ng/mL Total Protein (6.4-8.2) g/dL Albumin (3.4-5.0) g/dL Globulin (2.3-3.5) g/dL Albumin/Globulin Ratio (1.2-2.2) TSH, Ultra Sensitive (0.358-3.740) uIU/mL Urine Color Yellow Urine Appearance Slightly cloudy Urine pH 6.0 (4.5-8.0) Ur Specific [place] 1.015 (1.008-1.030) Urine Protein Trace (NEGATIVE) mg/dL Urine Glucose (UA) Normal (NEGATIVE) mg/dL Urine Ketones Negative (NEGATIVE) mg/dL Urine Occult Blood Trace (NEGATIVE) Urine Nitrite Positive H (NEGATIVE) Urine Bilirubin Negative (NEGATIVE) Urine Urobilinogen Normal (NORMAL) mg/dL Ur Leukocyte Esterase Moderate (NEGATIVE) Urine RBC 0-5 (0-5) Urine WBC 10-20 H (0-5) Ur Epithelial Cells Few Amorphous Sediment Not seen Urine Bacteria Many Urine Mucus Not seen Urine Other 07/22/18 07/23/18 07/23/18 Range/Units 22:40 04:35 04:35 WBC 9.8 (4.5-11.0) K/uL RBC 4.14 (3.30-5.50) M/uL Hgb 13.5 (12.0-15.0) g/dL Hct 40.9 (36.0-48.0) % MCV 99 H (80-98) fL MCH 33 H (27-31) pg MCHC 33 (32-36) % Plt Count 276 (150-400) K/uL Neut % (Auto) (36-66) % Lymph % (Auto) (24-44) % [place] % (Auto) (2-6) % Eos % (Auto) (2-4) % Baso % (Auto) (0-1) % VBG pH (7.350-7.450) Sodium 134 L (140-148) mmol/L Potassium 4.5 (3.6-5.2) mmol/L Chloride 99 L (100-108) mmol/L Carbon Dioxide 22 (21-32) mmol/L Anion Gap 17.5 H (5.0-14.0) mmol/L BUN 8 (7-18) mg/dL Creatinine 0.7 (0.6-1.0) mg/dL Est Cr Clr Drug Dosing 50.70 mL/min Estimated GFR (MDRD) > 60 (>60) Glucose 355 H (74-106) mg/dL Lactic Acid 2.0 (0.4-2.0) mmol/L Calcium 8.2 L (8.5-10.1) mg/dL Total Bilirubin (0.2-1.0) mg/dL AST (15-37) U/L ALT (12-78) U/L Alkaline Phosphatase (46-116) U/L Troponin I (0.000-0.056) ng/mL Total Protein (6.4-8.2) g/dL Albumin (3.4-5.0) g/dL Globulin (2.3-3.5) g/dL Albumin/Globulin Ratio (1.2-2.2) TSH, Ultra Sensitive (0.358-3.740) uIU/mL Urine Color Urine Appearance Urine pH (4.5-8.0) Ur Specific [place] (1.008-1.030) Urine Protein (NEGATIVE) mg/dL Urine Glucose (UA) (NEGATIVE) mg/dL Urine Ketones (NEGATIVE) mg/dL Urine Occult Blood (NEGATIVE) Urine Nitrite (NEGATIVE) Urine Bilirubin (NEGATIVE) Urine Urobilinogen (NORMAL) mg/dL Ur Leukocyte Esterase (NEGATIVE) Urine RBC (0-5) Urine WBC (0-5) Ur Epithelial Cells Amorphous Sediment Urine Bacteria Urine Mucus Urine Other 07/23/18 07/23/18 07/23/18 Range/Units 04:35 04:35 07:48 WBC (4.5-11.0) K/uL RBC (3.30-5.50) M/uL Hgb (12.0-15.0) g/dL Hct (36.0-48.0) % MCV (80-98) fL MCH (27-31) pg MCHC (32-36) % Plt Count (150-400) K/uL Neut % (Auto) (36-66) % Lymph % (Auto) (24-44) % [place] % (Auto) (2-6) % Eos % (Auto) (2-4) % Baso % (Auto) (0-1) % VBG pH (7.350-7.450) Sodium (140-148) mmol/L Potassium (3.6-5.2) mmol/L Chloride (100-108) mmol/L Carbon Dioxide (21-32) mmol/L Anion Gap (5.0-14.0) mmol/L BUN (7-18) mg/dL Creatinine (0.6-1.0) mg/dL Est Cr Clr Drug Dosing mL/min Estimated GFR (MDRD) (>60) Glucose (74-106) mg/dL Lactic Acid 1.6 (0.4-2.0) mmol/L Calcium (8.5-10.1) mg/dL Total Bilirubin (0.2-1.0) mg/dL AST (15-37) U/L ALT (12-78) U/L Alkaline Phosphatase (46-116) U/L Troponin I 0.220 H* 0.139 H* (0.000-0.056) ng/mL Total Protein (6.4-8.2) g/dL Albumin (3.4-5.0) g/dL Globulin (2.3-3.5) g/dL Albumin/Globulin Ratio (1.2-2.2) TSH, Ultra Sensitive 0.506 (0.358-3.740) uIU/mL Urine Color Urine Appearance Urine pH (4.5-8.0) Ur Specific [place] (1.008-1.030) Urine Protein (NEGATIVE) mg/dL Urine Glucose (UA) (NEGATIVE) mg/dL Urine Ketones (NEGATIVE) mg/dL Urine Occult Blood (NEGATIVE) Urine Nitrite (NEGATIVE) Urine Bilirubin (NEGATIVE) Urine Urobilinogen (NORMAL) mg/dL Ur Leukocyte Esterase (NEGATIVE) Urine RBC (0-5) Urine WBC (0-5) Ur Epithelial Cells Amorphous Sediment Urine Bacteria Urine Mucus Urine Other Med Orders - Current: Current Medications Acetaminophen (Tylenol) 650 mg PO Q4H PRN PRN Reason: Pain (Mild 1-3)/fever Aspirin (Halfprin) 81 mg PO BEDTIME [facility] Last Admin: 07/22/18 21:15 Dose: Not Given Sodium Chloride (Normal Saline) 1,000 mls @ 125 mls/hr IV ASDIRECTED [facility] Last Admin: 07/23/18 04:39 Dose: 125 mls/hr Ceftriaxone Sodium 1 gm/ (Sodium Chloride) 50 mls @ 100 mls/hr IV Q24H [facility] Insulin Human Lispro (Humalog) 0 unit SUBCUT QIDACANDBED [facility]; Protocol Last Admin: 07/23/18 07:31 Dose: 4 units Levetiracetam (Keppra) 500 mg PO BID [facility] Last Admin: 07/23/18 08:23 Dose: 500 mg Levothyroxine Sodium (Levothyroxine) 75 mcg PO ACBREAKFAST [facility] Last Admin: 07/23/18 08:23 Dose: 75 mcg Magnesium Hydroxide (Milk Of Magnesia) 30 ml PO Q12H PRN PRN Reason: Constipation Ondansetron HCl (Zofran Odt) 4 mg PO Q6H PRN PRN Reason: Nausea able to take PO Senna/Docusate Sodium (Senna Plus) 1 tab PO BID PRN PRN Reason: Constipation Discontinued Medications Sodium Chloride (Normal Saline) 1,000 mls @ [facility] Admin: 07/22/18 18:39 Dose: 999 mls/hr Sodium Chloride (Normal Saline) 1,000 mls @ 999 mls/hr IV ASDIRECTED [facility] Last Admin: 07/22/18 19:06 Dose: 999 mls/hr Ceftriaxone Sodium 1 gm/ (Sodium Chloride) 50 mls @ 100 mls/hr IV ONETIME ONE Stop: 07/22/18 19:23 Last Admin: 07/22/18 19:03 Dose: 100 mls/hr Insulin Human Lispro (Humalog) 8 unit SUBCUT ONETIME ONE Stop: 07/23/18 09:34 Last Admin: 07/23/18 09:35 Dose: 8 units - Exam Quality Assessment: Denies: Supplemental Oxygen General: Reports: Alert, Cooperative, No Acute Distress. Denies: Oriented Lungs: Reports: Normal Respiratory Effort Cardiovascular: Reports: Regular Rate, Regular Rhythm GI/Abdominal Exam: Soft, No Distention Psy/Mental Status: Reports: Alert, Normal Affect
[2018-07-23] MEDS ORDERED: cefTRIAXone 1 GM in Sodium Chloride 0.9% 50 ML IV SCH ×2 (18:00→19:00)
== END 2018-07-23 10:29 | DRG 871 ==
LOC: JP.ED 17:16 → JP.MS 19:45
PROVIDERS: ADMIT Internal Medicine; ATTEND Internal Medicine
DX: A41.9 Sepsis, unspecified organism (principal); A41.51 Sepsis due to Escherichia coli [E. coli]; I21.4 Non-ST elevation (NSTEMI) myocardial infarction; N30.00 Acute cystitis without hematuria; I10 Essential (primary) hypertension; E03.9 Hypothyroidism, unspecified; G40.909 Epilepsy, unspecified, not intractable, without status epilepticus; Z87.891 Personal history of nicotine dependence; R55 Syncope and collapse; E10.649 Type 1 diabetes mellitus with hypoglycemia without coma; R00.1 Bradycardia, unspecified; Z79.4 Long term (current) use of insulin; Z96.41 Presence of insulin pump (external) (internal); E87.6 Hypokalemia; E78.00 Pure hypercholesterolemia, unspecified; M19.90 Unspecified osteoarthritis, unspecified site; F32.9 Major depressive disorder, single episode, unspecified; H54.7 Unspecified visual loss; Z79.82 Long term (current) use of aspirin; Z88.1 Allergy status to other antibiotic agents; Z88.0 Allergy status to penicillin; Z88.2 Allergy status to sulfonamides; Z90.49 Acquired absence of other specified parts of digestive tract
CPT/HCPCS: 36415; 70450; 80053; 81001; 82800; 82962; 83605; 84484; 85025; 87040 ×2; 87086; 87088; 87186; 93005; J0696; J7030 ×2; J7050; 80048; 84443; 85027; A9270-GY; J1815

== ENCOUNTER 2021-07-04 14:47 | Emergency (ER) | payer MEDICARE, BC | END 2021-07-04 17:23 | LOC: JP.ED 14:47 | DX: E10.65 Type 1 diabetes mellitus with hyperglycemia (principal); I10 Essential (primary) hypertension; E78.00 Pure hypercholesterolemia, unspecified; E03.9 Hypothyroidism, unspecified; Z96.41 Presence of insulin pump (external) (internal); Z79.4 Long term (current) use of insulin; Z79.899 Other long term (current) drug therapy; Z88.0 Allergy status to penicillin; Z88.2 Allergy status to sulfonamides; Z88.8 Allergy status to other drugs, medicaments and biological substances | CPT/HCPCS: 36415; 80048; 81001; 82009; 83605; 84145; 85025; 99283; 99285 ==

== ENCOUNTER 2022-08-19 00:43 | Inpatient (IN) | payer MEDICARE, BC ==
[2022-08-19 01:38] LABS: ESTIMATED GFR 88 mL/min (>60)
[2022-08-19] MEDS ORDERED: Sodium Chloride 0.9% 1,000 ML IV SCH ×2 (02:15→05:54)
[2022-08-19] MEDS ORDERED: Lactated Ringers 1,000 ML IV SCH (02:15)
[2022-08-19 03:59] LABS: CORONAVIRUS COVID-19 NAA NEGATIVE (NEGATIVE)
[2022-08-19] MEDS ORDERED: Doxycycline 100 MG Cap PO SCH (04:15)
[2022-08-19] MEDS ORDERED: Doxycycline 100 MG in Sodium Chloride 0.9% 100 ML IV SCH (05:30)
[2022-08-19] MEDS ORDERED: Ondansetron 4 MG/2 ML SDV IV PRN (05:54)
[2022-08-19] MEDS ORDERED: Albuterol/Ipratropium 3.0-0.5 MG/3 ML Neb Soln NEB PRN (05:54)
[2022-08-19] MEDS ORDERED: Magnesium Hydroxide 400 MG/5 ML Susp 30 ML Cup PO PRN (05:54)
[2022-08-19] MEDS ORDERED: Melatonin 3 MG Tab PO PRN (05:54)
[2022-08-19] MEDS ORDERED: Enoxaparin 40 MG/0.4 ML Syringe SUBCUT SCH (05:54)
[2022-08-19] MEDS ORDERED: Insulin Lispro 100 Unit/ML 3 ML KwikPen SUBCUT SCH (05:54)
[2022-08-19] MEDS ORDERED: Ondansetron 4 MG Tab.DIS PO PRN (05:54)
[2022-08-19] MEDS ORDERED: Acetaminophen 325 MG Tab PO PRN (05:54)
[2022-08-19] MEDS ORDERED: Potassium Chloride 100 ML ONE (06:07)
[2022-08-19] MEDS ORDERED: Doxycycline 100 MG Vial ONE (06:10)
[2022-08-19] MEDS: Potassium Chloride 10 MEQ in Premix Bag 1 BAG IV SCH ×4 (06:17→10:31)
[2022-08-19] MEDS: Doxycycline 100 MG in Sodium Chloride 0.9% 100 ML IV SCH ×2 (07:13→20:05)
[2022-08-19] MEDS: Levothyroxine 88 MCG Tab PO SCH (08:18)
[2022-08-19] MEDS: ARIPiprazole 10 MG Tab PO SCH (08:19)
[2022-08-19] MEDS: Citalopram 20 MG Tab PO SCH (08:24)
[2022-08-19] MEDS: Calcium Carbonate/Vitamin D3 1500 MG-400 Units Tab PO SCH (08:24)
[2022-08-19] MEDS: Lactobacillus Rhamnosus GG (Probiotic) Cap PO SCH ×2 (08:25→20:06)
[2022-08-19] MEDS: Losartan 50 MG Tab PO SCH ×2 (08:25→20:06)
[2022-08-19] MEDS: Enoxaparin 40 MG/0.4 ML Syringe SUBCUT SCH (08:26)
[2022-08-19] MEDS: amLODIPine 5 MG Tab PO SCH (08:26)
[2022-08-19] MEDS: Cholecalciferol (Vitamin D3) 25 MCG Tab PO SCH (08:27)
[2022-08-19] MEDS: Insulin Glargine,Human Rec. Analog 100 Units/ML 3 ML Pen SUBCUT SCH (09:29)
[2022-08-19] MEDS: Insulin Lispro 100 Unit/ML 3 ML KwikPen SUBCUT SCH ×3 (11:56→21:10)
[2022-08-19] MEDS: cefTRIAXone 1 GM in Sodium Chloride 0.9% 50 ML IV SCH (12:56)
[2022-08-20] MEDS: Insulin Lispro 100 Unit/ML 3 ML KwikPen SUBCUT SCH ×4 (07:47→21:47)
[2022-08-20] MEDS: Levothyroxine 88 MCG Tab PO SCH (07:47)
[2022-08-20] MEDS ORDERED: Potassium Chloride 20 MEQ Tab.ER PO ONE ×2 (08:04→17:00)
[2022-08-20] MEDS: Doxycycline 100 MG in Sodium Chloride 0.9% 100 ML IV SCH ×2 (08:19→19:31)
[2022-08-20] MEDS: amLODIPine 5 MG Tab PO SCH (08:21)
[2022-08-20] MEDS: Cholecalciferol (Vitamin D3) 25 MCG Tab PO SCH (08:23)
[2022-08-20] MEDS: Losartan 50 MG Tab PO SCH ×2 (08:23→21:48)
[2022-08-20] MEDS: Lactobacillus Rhamnosus GG (Probiotic) Cap PO SCH ×2 (08:23→21:47)
[2022-08-20] MEDS: Citalopram 20 MG Tab PO SCH (08:23)
[2022-08-20] MEDS: Calcium Carbonate/Vitamin D3 1500 MG-400 Units Tab PO SCH (08:24)
[2022-08-20] MEDS: ARIPiprazole 10 MG Tab PO SCH (08:24)
[2022-08-20] MEDS: Insulin Glargine,Human Rec. Analog 100 Units/ML 3 ML Pen SUBCUT SCH (09:32)
[2022-08-20] MEDS: Enoxaparin 40 MG/0.4 ML Syringe SUBCUT SCH (09:33)
[2022-08-20] MEDS: cefTRIAXone 1 GM in Sodium Chloride 0.9% 50 ML IV SCH (11:43)
[2022-08-21] MEDS: Doxycycline 100 MG in Sodium Chloride 0.9% 100 ML IV SCH (07:35)
[2022-08-21] MEDS: Levothyroxine 88 MCG Tab PO SCH (08:00)
[2022-08-21] MEDS: Insulin Lispro 100 Unit/ML 3 ML KwikPen SUBCUT SCH ×2 (08:25→11:31)
[2022-08-21] MEDS: Insulin Glargine,Human Rec. Analog 100 Units/ML 3 ML Pen SUBCUT SCH (08:29)
[2022-08-21] MEDS: Lactobacillus Rhamnosus GG (Probiotic) Cap PO SCH (08:30)
[2022-08-21] MEDS: Citalopram 20 MG Tab PO SCH (08:30)
[2022-08-21] MEDS: ARIPiprazole 10 MG Tab PO SCH (08:30)
[2022-08-21] MEDS: Calcium Carbonate/Vitamin D3 1500 MG-400 Units Tab PO SCH (08:30)
[2022-08-21] MEDS: Enoxaparin 40 MG/0.4 ML Syringe SUBCUT SCH (08:33)
[2022-08-21] MEDS: Cholecalciferol (Vitamin D3) 25 MCG Tab PO SCH (08:33)
[2022-08-21] MEDS: Losartan 50 MG Tab PO SCH (08:33)
[2022-08-21] MEDS: amLODIPine 5 MG Tab PO SCH (08:34)
[2022-08-21] MEDS: cefTRIAXone 1 GM in Sodium Chloride 0.9% 50 ML IV SCH (12:11)
[2022-08-22] MEDS ORDERED: Levothyroxine 25 MCG Tab PO SCH (07:30)
== END 2022-08-21 13:30 | disposition home or self-care (01) | DRG 194 ==
LOC: JP.ED 00:43 → JP.MS 03:17
PROVIDERS: ADMIT Hospitalist; ATTEND Hospitalist
DX: J18.9 Pneumonia, unspecified organism (principal); E87.1 Hypo-osmolality and hyponatremia; F03.918 Unspecified dementia, unspecified severity, with other behavioral disturbance; E87.6 Hypokalemia; E10.42 Type 1 diabetes mellitus with diabetic polyneuropathy; Z66 Do not resuscitate; G40.909 Epilepsy, unspecified, not intractable, without status epilepticus; E78.00 Pure hypercholesterolemia, unspecified; I10 Essential (primary) hypertension; Z20.822 Contact with and (suspected) exposure to COVID-19; M19.90 Unspecified osteoarthritis, unspecified site; E03.9 Hypothyroidism, unspecified; F32.A Depression, unspecified; Z88.0 Allergy status to penicillin; Z79.890 Hormone replacement therapy; Z79.4 Long term (current) use of insulin; Z79.899 Other long term (current) drug therapy; Z88.2 Allergy status to sulfonamides; Z91.041 Radiographic dye allergy status; Z90.49 Acquired absence of other specified parts of digestive tract; Z98.890 Other specified postprocedural states; Z98.51 Tubal ligation status; Z88.8 Allergy status to other drugs, medicaments and biological substances
CPT/HCPCS: 0241U; 36415; 70450; 71045; 71045-26; 80048; 80053; 81001; 82947; 83605; 83735; 84145; 85025; 96360; 96361; 97110-GP; 97162-GP; 97165-GO; 97530-GP; 97535-GP; 99285-25; A9270-GY; J0696; J1650; J1815; J1815-GY; J3480; J3490; J7030; J7120